=== PATIENT | male | born 1945 | race Caucasian/White ===

== ENCOUNTER 2019-11-27 04:16 | Observation (INO) | payer MEDICARE, BC ==
[~2019-11-27] VITALS: Ht 175.3 cm; Wt 80.3 kg
[2019-11-27] MEDS ORDERED: ASPIRIN325 MG PO (04:32)
[2019-11-27] MEDS ORDERED: NORCO 5-325 TA1 EACH PO (04:34)
[2019-11-27] MEDS ORDERED: ATORVASTATIN CA80 MG PO (05:51)
[2019-11-27] MEDS ORDERED: NORCO 10-325 T1 EACH PO (05:51)
[2019-11-27] MEDS ORDERED: CYCLOBENZAPRINE10 MG PO (05:52)
[2019-11-27] MEDS ORDERED: ECHINACEA350 MG PO (05:54)
[2019-11-27] MEDS ORDERED: MIRAPEX0.125 MG PO (05:54)
[2019-11-27] MEDS ORDERED: GABAPENTIN300 MG PO (05:54)
[2019-11-27] MEDS ORDERED: MEN'S MULTIVIT1 EACH PO (05:55)
[2019-11-27] MEDS ORDERED: UNISOM50 MG PO (05:55)
[2019-11-27] MEDS ORDERED: MUCINEX DM ER1 EAC1 PO (05:56)
[2019-11-27] MEDS ORDERED: ALKA-SELTZER P1 EAC3 PO (05:57)
--- OUTSIDE RECORDS SUMMARY | 2019-11-27 06:28 | XMS ---
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 Cindy VISIT COUNT (12 [address] [facility] [place] [facility] TOTAL 3 NOTE: Visits indicate total known visits. ED/UCC VISIT TRACKING (12 MO.) 11/27/2019 04:18 [facility] [place] TYPE: Emergency COMPLAINT: - DIFFICULTY STANDING/SLURRING WORDS 08/21/2019 11:47 [facility] [place]: Emergency DIAGNOSES: - Other iron deficiency anemias - EMS/Syncope - Weakness - Generalized - Hypokalemia - Weakness 06/17/2019 18:35 [facility] [place] DIAGNOSES: - BACK PAIN INPATIENT VISIT TRACKING (12 MO.) 08/21/2019 11:47 [facility] [place] TYPE: Internal Medicine DIAGNOSES: - Diaphragmatic hernia without obstruction or gangrene - Malignant neoplasm of esophagus, unspecified - Hypokalemia - Other iron deficiency anemias - Perforation of esophagus - Enterocolitis d/t Clostridium difficile, not spcf as recur Enterocol - Weakness 06/13/2019 06:02 [facility] [place] TYPE: Surgery DIAGNOSES: - Gastro-esophageal reflux disease with esophagitis [email or web address]
--- NOTE | 2019-11-27 11:05 | NUR ---
Spoke with Rajiv and his family. 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 Recently moved to [place] from [place]. Will establish care with Karolina Lopez on 12/01/19 and will use [facility] for a pharmacy. Son and daughter are both present with their families. Pt plans on returning home with his daughter when discharged. Denies further needs.
--- NOTE | 2019-11-27 11:08 | NUR ---
PT REPORTS PAIN 7-8/10 AT THIS TIME CHONIC BACK AND LEFT LEG PAIN. PT ALERT AND ORIENTED.
--- NOTE | 2019-11-27 11:50 | NUR ---
PT RESTING IN SEMIFOWLERS POSITION IN BED. PT ALERT AND ORIENTED. ASSESSMENT COMPLETED. PT DENIES ANY NEW SYMPTOMS OR CONCERNS. CALL LIGHT AND H2O IN REACH.
--- NOTE | 2019-11-27 15:22 | NUR ---
PT RESTING IN SEMIFOWLERS POSITION IN BED. ALERT AND ORIENTED AND READING DINNER MENUE. ASSESSMENT COMPLETED. CALL LIGHT AND H2O IN REACH. PT DENIES ANY NEW SYMPTOMS, NEEDS OR CONCERNS.
--- NOTE | 2019-11-27 16:08 | NUR ---
PT REPORTS 6/10 PAIN TO LOWER BACK AND RADIATING DOWN LLE. PT REQUESTED AND RECEIVED PRN PO FLEXARIL -SEE EMAR. CALL LIGHT AND H2O IN REACH. NO FURTHER NEEDS OR CONCERNS VOICED.
--- NOTE | 2019-11-27 17:59 | NUR ---
PT RESTING SUPINE IN BED ALERT AND ORIENTED WATCHING TV. ASSESSMENT COMPELTED AND PT DENIES NEW SYMPTOMS OR CONCERNS OTHER THAN 6/10 CHRONIC BACK PAIN/TINGLING. PER PT REQEUST PRN PO ANALGESIC ADMINISTERED. CALL LIGHT AND H2O IN REACH. NO OTHER NEEDS OR CONCERNS VOICED.
--- NOTE | 2019-11-27 19:20 | NUR ---
SHIFT REPORT RECIEVED FROM MADHAV ROSARIO. PT LAYING IN BED, WATCHING TV. NO NEEDS AT THIS TIME. CALL LIGHT IN REACH. TELE 8, SR@92.
--- NOTE | 2019-11-27 21:07 | NUR ---
ASSESSMENT AND NUERO CHECK COMPLETE. NO CHANGES FROM BASELINE NOTED. SCHEDULED MEDS PROVIDED.IV CDI, WNL, FLUSHED WELL. 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 WILL NOTIFY MD. NO OTHER NEEDS, CALL LIGHT IN REACH. PT DENIES PAIN AT THIS TIME.
--- NOTE | 2019-11-27 21:15 | NUR ---
ASSESSMENT AND NUERO CHECK COMPLETE. NO CHANGES FROM BASELINE NOTED. SCHEDULED MEDS PROVIDED.IV CDI, WNL, FLUSHED WELL. PRN PAIN MED FOR MUSCLE SPASM. PT DENIES PAIN AT THIS TIME. NO OTHER NEEDS, CALL LIGHT IN REACH.
--- NOTE | 2019-11-27 23:52 | NUR ---
PT COMPLEAINS OF LLE AND LOWER BACK PAIN. PRN PAIN MED PROVIDED. NO OTHER NEEDS AT THIS TIME. CALL LIGHT IN REACH.
--- NOTE | 2019-11-28 01:45 | NUR ---
PT RESTING IN BED, EYES CLOSED. RR 16, EVEN, UNLABORED. CALL LIGHT IN REACH.
--- NOTE | 2019-11-28 02:10 | NUR ---
ASSESSMENT COMPLETED. PT DENIES PAIN. NO CHANGES IN NEURO. GCS 15, A&O X4. NO OTHER NEEDS. CALL LIGHT IN REACH.
--- NOTE | 2019-11-28 04:05 | NUR ---
PT RESTING IN BED, EYES CLOSED. RR 14, EVEN, UNLABORED. TELE #8 SR @72. CALL LIGHT IN REACH.
--- NOTE | 2019-11-28 05:28 | NUR ---
PT SLEPT WELL LAST NIGHT. GCS 15, A&O X4. NO CHANGES TO SPEECH OR MOTOR SKILLS. PAIN MANAGED WITH SCHEDULED AND PRN PAIN MEDS. TELE #8 SR TRENDING IN 70s-80s.IV CDI, WNL, FLUSHED WELL.
--- NOTE | 2019-11-28 06:54 | NUR ---
PT STATES LLE AND LOWER BACK PAIN 03/25. PRN PAIN MED PROVIDED. PT UP TO BR AND BACK TO BED. NO OTHER NEEDS, CALL LIGHT IN REACH.
--- NOTE | 2019-11-28 07:20 | NUR ---
PT RESTING IN BED WATCHING TV. PT DENIES NEW SYMPTOMS OR CONCERNS AND STATES CHRONIC BACK AND LEG PAIN IS TOLERABLE. CALL LIGHT AND H2O IN REACH. BEDSIDE REPORT RECEIVED FROM MARLENE ESCAMILLA.
--- NOTE | 2019-11-28 08:31 | NUR ---
PT RESTING IN SEMIFOWLERS POSITION IN BED WATCHING TV. PT IS ALERT AND ORIENTED. TOLERATED 100% OF BREAKFAST. PT ASSESSMENT COMPLETED AND PT DENIES NEEDS OR CONCERNS. PT DENIES ANY NEW SYMPTOMS, GCS 15 AND PT STATES PAIN IS TOLERABLE TO LOWER BACK AND LE. CALL LIGHT AND H2O IN REACH.
[2019-11-28] MEDS ORDERED: ASPIRIN EC81 MG PO (10:38)
[2019-11-28] MEDS ORDERED: ATORVASTATIN CA80 MG PO (10:38)
[2019-11-28] MEDS ORDERED: METFORMIN HCL500 MG PO (10:39)
--- NOTE | 2019-11-28 10:46 | NUR ---
PATIENT DID HIS OWN AM CARE. I ASKED THE PATIENT IF HE WANTED A SHOWER AROUND NINE THIS MORNING AND HE SAID SURE. WHEN I CAME BACK IN TO ASK HIM IF HE WAS READY FOR HIS SHOWER HE SAID NO BECAUSE HE IS GOING HOME. AND HE WILL TAKE ONE AT HOME.
--- NOTE | 2019-11-28 11:00 | NUR ---
MED REC COMPLETE
--- NOTE | 2019-11-28 11:10 | NUR ---
PT UP AMBULATING IN ROOM. PT DENIES ANY NEW SYMPTOMS AND STATES CHRONIC PAIN IS TOLERABLE. PT DNEIES NEEDS AND VOICED READINESS TO BE DISCHARGED.
--- NOTE | 2019-11-29 17:07 | EKG ---
[facility] [address] [facility] [place], [place] [address] Signed Sinus rhythm with 1st degree AV block Otherwise normal ECG No previous ECGs available Confirmed by GARY CADENA MD ([id number]) on 11/29/2019 5:07:43 PM Electronically Signed By: GARY CADENA MD 11/29/19 1707 PATIENT NAME: ABDOULAYE CASTANO URIEL Electrocardiogram DATE OF : 47 PHYSICIAN: GARY CADENA MD REPORT #: [id number] REPORT IS CONFIDENTIAL AND NOT TO BE RELEASED WITHOUT AUTHORIZATION
== END 2019-11-28 11:35 | disposition home or self-care (01) ==
LOC: ED 04:16 → MS 04:19
PROVIDERS: ADMIT Internal Medicine
DX: G45.9 Transient cerebral ischemic attack, unspecified (principal); E78.5 Hyperlipidemia, unspecified; G25.81 Restless legs syndrome; M54.5 Low back pain; G89.29 Other chronic pain; L40.50 Arthropathic psoriasis, unspecified; E11.42 Type 2 diabetes mellitus with diabetic polyneuropathy; Z79.891 Long term (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 of opiate analgesic; Z79.899 Other long term (current) drug therapy; Z87.19 Personal history of other diseases of the digestive system; Z98.890 Other specified postprocedural states; Z79.82 Long term (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; Z79.84 Long term (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 of oral hypoglycemic drugs; Z87.891 Personal history of nicotine dependence
CPT/HCPCS: 70450; 71045; 80053; 80061; 80176; 81001; 83036; 84484; 85025; 85610; 85730; 93005; 93010; 93306; 93880; 96372; 99285-25; G0378; G0480; J1650

== ENCOUNTER 2021-02-12 06:30 | Day surgery (SDC) | payer MEDICARE, BC ==
[~2021-02-12] VITALS: Ht 175.3 cm; Wt 78.0 kg
[~2021-02-12 06:30] MED LIST: ALKA-SELTZER P1 EAC3 PO; ASPIRIN EC81 MG PO; ASPIRIN325 MG PO; ATORVASTATIN CA80 MG PO; CYCLOBENZAPRINE10 MG PO; ECHINACEA350 MG PO; GABAPENTIN300 MG PO; MEN'S MULTIVIT1 EACH PO; METFORMIN HCL500 MG PO; MIRAPEX0.125 MG PO; MUCINEX DM ER1 EAC1 PO; NORCO 10-325 T1 EACH PO; NORCO 5-325 TA1 EACH PO; UNISOM50 MG PO
--- NOTE | 2021-02-12 08:10 | NUR ---
02/12/21 0810 Codie Bustos 0759 PT ARRIVED TO PACU ON 4L VIA NC. VSS. PT AWAKE AND TALKING TO RN.
--- NOTE | 2021-02-12 11:45 | OR ---
[facility] [address] [place], [place] [address] Signed DATE OF OPERATION: 02/12/2021 SURGEON: Kisha Cooper MD PREOPERATIVE DIAGNOSES: 1. Proximal esophageal dysphagia. 2. Paraesophageal hiatal hernia repair. 3. Anemia (hemoglobin 11.8, mean cell volume 93.8). POSTOPERATIVE DIAGNOSES: 1. Small recurrent paraesophageal hiatal hernia. 2. Mild diffuse gastritis. 3. Hypertrophied adenoids. 4. Tenacious phlegm. PROCEDURE: EGD with CLOtest and biopsies of the antrum and GE junction. ESTIMATED BLOOD LOSS: None. INDICATIONS: Abdoulaye is a 75-year-old gentleman, asked to see me for upper endoscopy. He had a barium swallow in December of 2019. It was unremarkable. He had tiny amount of liquid penetration near the vocal cords; however, that is quite common. He also had repair of a large paraesophageal hernia at age 70 while living in [place], [place]. He said that was quite an ordeal. He is now complaining of the back of his oropharynx mainly with thin liquids. Consequently, he was asked to see me for upper endoscopy. In the office, I gave him a pamphlet on upper endoscopy. He understands the nature of the test. He understands there is risk including, but not limited to gas bloating, crampy abdominal pain, bleeding, perforation requiring surgery, and missed diagnosis. He also understands the need for IV sedation. Given his advanced age and medical issues, we asked an anesthesia provider to help us with increased monitoring and sedation with propofol. That worked out quite nicely for Abdoulaye. He had expressed understanding and wished to proceed. PROCEDURE NOTE: Abdoulaye was taken into our endoscopy suite and placed in the supine semi-recumbent position. A bite block was utilized for the case. He was given monitored anesthesia care per nurse card hand. The adult gastroscope was introduced and advanced under direct Electronically Signed By: KISHA COOPER MD 02/12/21 1145 PATIENT NAME: ABDOULAYE CASTANO OPERATIVE REPORT DATE OF : 47 REPORT #: [id number] PHYSICIAN: KISHA COOPER MD PCP: ARIEL RODRIGUES PAC REPORT IS CONFIDENTIAL AND NOT TO BE RELEASED WITHOUT AUTHORIZATION [facility] [address] [place], [place] [address] Signed visualization of camera. We actually had some trouble going over the tongue and into the posterior oropharynx. He has very thick dry tenacious phlegm. The epiglottis was adherent and down and it took a while to break that loose and get it to go up into his usual position. We found very hypertrophied adenoid tissue just above that. It seems like the arytenoids were just a little swollen as well. The vocal cord seemed to be okay. We were then able to pass our scope down the proximal esophagus and all the way out into the third portion of the duodenum. The duodenum and pyloric channel were unremarkable. He had a little retained food in his distal stomach. He had mild inflammatory changes throughout the stomach. However, that is common when there was retained food. We went ahead and took biopsies from the antrum for CLOtest as well as pathologic review. We saw no ulcerations. Upon retroflexion of scope, we can see he has had his paraesophageal hernia repaired. We watched that very carefully through multiple respiratory cycles. He has just a small recurrence on the one side. It is quite clinically insignificant. The scope was withdrawn up through the area of the GE junction, which was compliant without stricture. He does have mild to moderate disruption to the Z-line. No obvious Marte's mucosa. We went ahead and took a single biopsy along the edge of the Z-line. There were no strictures or gastric or esophageal varices. His distal middle and upper esophagus were unremarkable. Specifically, the proximal esophagus. Again in the posterior oropharynx, we found similar findings and took multiple pictures for photodocumentation. After this, the gastroscope was removed. Abdoulaye tolerated the procedure quite well. RECOMMENDATIONS: I will see Adboulaye back in my office in 7 to 14 days to review his results. He needs to see one of the head and neck surgeons to evaluate the posterior oropharynx. Kisha Cooper MD ALB/MODL /[id number] cc: MD Ariel Garcia Electronically Signed By: KISHA COOPER MD 02/12/21 1145 PATIENT NAME: ABDOULAYE CASTANO OPERATIVE REPORT DATE OF : 47 REPORT #: [id number] PHYSICIAN: KISHA COOPER MD PCP: [facility] REPORT IS CONFIDENTIAL AND NOT TO BE RELEASED WITHOUT AUTHORIZATION [address] [address] Signed Copies: KISHA COOPER MD ~ Electronically Signed By: KISHA COOPER MD 02/12/21 1145 PATIENT NAME: ABDOULAYE CASTANO OPERATIVE REPORT DATE OF : 47 REPORT #: [id number] PHYSICIAN: KISHA COOPER MD PCP: ARIEL RODRIGUES PAC REPORT IS CONFIDENTIAL AND NOT TO BE RELEASED WITHOUT AUTHORIZATION
== END 2021-02-12 08:30 | disposition home or self-care (01) ==
LOC: OPS 06:30 → DS 06:30 → OPS 06:45 → DS 06:45 → OPS 08:30
PROVIDERS: ATTEND Colon & Rectal Surgery
PROC: 0DB68ZZ Excision of Stomach, Via Natural or Artificial Opening Endoscopic (ICD-10-PCS; principal; 2021-02-12 06:45)
DX: R13.19 Other dysphagia (principal); K44.9 Diaphragmatic hernia without obstruction or gangrene; D64.9 Anemia, unspecified; K29.50 Unspecified chronic gastritis without bleeding; J35.2 Hypertrophy of adenoids; R09.89 Other specified symptoms and signs involving the circulatory and respiratory systems; I10 Essential (primary) hypertension; E78.00 Pure hypercholesterolemia, unspecified; I65.23 Occlusion and stenosis of bilateral carotid arteries; E11.42 Type 2 diabetes mellitus with diabetic polyneuropathy; L40.59 Other psoriatic arthropathy; G25.81 Restless legs syndrome; Z98.890 Other specified postprocedural states; Z79.82 Long term (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; Z79.84 Long term (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 of oral hypoglycemic drugs; Z87.891 Personal history of nicotine dependence; Z85.46 Personal history of malignant neoplasm of prostate; Z86.73 Personal history of transient ischemic attack (TIA), and cerebral infarction without residual deficits
CPT/HCPCS: 86677; J0690; J2001; J2704; J3010; J7121

== ENCOUNTER 2021-03-09 09:00 | Day surgery (SDC) | payer MEDICARE, BC ==
[~2021-03-09] VITALS: Ht 175.3 cm; Wt 77.6 kg
--- NOTE | 2021-03-09 09:27 | NUR ---
RESP THERAPY IN TO PT ROOM FOR EKG
--- NOTE | 2021-03-09 10:38 | NUR ---
03/09/21 Jillian Mancilla 1032: PT ARRIVES TO PACU FOR REVOVERY. NON AROUSABLE TO TACTILE STIMULI. OPA IN PLACE 1034: REMAINS NON AROUSABLE. BP LOW, POZAR, FIRE PATROLLER AT THE BEDSIDE. EPHEDRINE ADMINISTERED BY FIRE PATROLLER, SEE EMAR. RESP EVEN AND UNLABORED, O2 SAT STABLE >98% ON 10L VIA O2 1036: FIRE PATROLLER REMAINS AT THE BEDSIDE, FLUID BOLUS INFUSING
--- NOTE | 2021-03-09 12:12 | NUR ---
PT IS BACK TO FROM PACU. HE IS TOLERATING WATER AND APPLE SAUCE AT THIS TIME. CALL LIGHT WITHIN REACH. NO C/O'S PAIN. NO ADDITIONAL NEEDS AT THIS TIME.
--- NOTE | 2021-03-09 13:08 | NUR ---
PT BP INCREASED FROM PREVIOUS PRESSURES, HOB ELEVATED TO APPROX 70 DEGREES. PT DENIES ANY LIGHT HEADEDNESS OR NAUSEA. PT STATES "BACK AND LEGS ARE 3/10 FROM PREVIOUS SURGERY" WHEN ASKED ABOUT PAIN AND RATES SURGICAL SITE 1/10. PT CLEARS THROAT PERIODICALLY, TOLERATES PO WITH NO NAUSEA. PT ENCOURAGED TO USE CALL LIGHT WITH URGE TO VOID. ICED WATER REFILLED AND PUDDING PROVIDED.
--- NOTE | 2021-03-09 13:58 | NUR ---
PT TOLERATES PUDDING AND WATER WITH NO NAUSEA. PT STATES, "GETTING THERE" WHEN ASKED IF URGE TO VOID. PT EDUCATED ABOUT GENERAL ANESTHESIA AND RETENTION AND AGREES HE WOULD LIKE TO PEE BEFORE DC.
--- NOTE | 2021-03-09 14:04 | NUR ---
PT UP TO BATHROOM WITH RN ASSIST. STEADY GAIT, DENIES ANY DIZZINESS OR NAUSEA WITH AMBULATION. PT ABLE TO VOID APPROX 200 MLS YELLOW URINE WITH NO PROBLEMS. PT BACK TO DS RM 6 WITH RN ASSIST TO GET DRESSED.
--- NOTE | 2021-03-10 13:45 | PATH ---
[facility] [address] [place], [place] [address] Signed SPECIMEN(S): A LEFT PHARYNGEAL LESION SPECIMEN SOURCE: A. LEFT PHARYNGEAL LESION CLINICAL HISTORY: Direct laryngoscopy biopsy base tongue lesion. Pre/Postop Diagnosis: Tongue lesion. FINAL PATHOLOGIC DIAGNOSIS: Left pharyngeal lesion, biopsy: - Fibroepithelial polyp with chronic inflammation. - Negative for dysplasia or malignancy. NAL:cml:C2NR MICROSCOPIC EXAMINATION: Histologic sections of all submitted blocks are examined by light microscopy. These findings, together with the gross examination, support the pathologic diagnosis. GROSS DESCRIPTION: The specimen, labeled ", A.," and designated on the requisition "left pharyngeal lesion," is received in formalin and consists of three calero soft tissue fragments ranging 0.3-0.5 cm in greatest dimension. Specimen is entirely submitted in cassette (A1). AT (under the direct supervision of a pathologist) The Gross Description was prepared using a voice recognition system. The report was reviewed for accuracy; however, sound-alike word errors, addition and/or deletions may occur. If there is any question about this report, please contact Client Services. PERFORMING LABORATORY: The technical component was performed by [facility], [address] [place] [id number] (Blower Room Attendant: Elo Kerr MD; CLIA# [id number]). Professional interpretation was performed by [facility], [address] [address] (CLIA# [id number]). Diagnostician: Deisi Merrill MD Pathologist Electronically Signed 03/10/2021 PATIENT NAME: ABDOULAYE CASTANO PATHOLOGY DATE OF : 47 REPORT #: [id number] PHYSICIAN: RAMESH PATHOLOGY PCP: NO PRIMARY CARE PHYSICIAN REPORT IS CONFIDENTIAL AND NOT TO BE RELEASED WITHOUT AUTHORIZATION [address] [address] Signed Copies: ~ PATIENT NAME: ABDOULAYE CASTANO PATHOLOGY DATE OF : 47 REPORT #: [id number] PHYSICIAN: RAMESH PATHOLOGY PCP: NO PRIMARY CARE PHYSICIAN REPORT IS CONFIDENTIAL AND NOT TO BE RELEASED WITHOUT AUTHORIZATION
--- NOTE | 2021-03-11 12:31 | EKG ---
[facility] [address] [facility] [place], [place] [address] Signed Sinus rhythm with 1st degree AV block Otherwise normal ECG No previous ECGs available Confirmed by BRITTANY HUBBARD DO ([id number]) on 03/11/2021 12:31:48 PM Electronically Signed By: BRITTANY HUBBARD DO 03/11/21 1231 PATIENT NAME: OMAIRAABDOULAYE Electrocardiogram DATE OF : 47 PHYSICIAN: BRITTANY HUBBARD DO REPORT #: [id number] REPORT IS CONFIDENTIAL AND NOT TO BE RELEASED WITHOUT AUTHORIZATION
--- NOTE | 2021-03-16 10:09 | OR ---
[facility] [address] [place], [place] [address] Signed DATE OF OPERATION: 03/09/2021 SURGEON: Ellen Albarran MD PREOPERATIVE DIAGNOSIS: Pharyngeal lesion. POSTOPERATIVE DIAGNOSIS: Pharyngeal lesion. PROCEDURE: Direct laryngoscopy, biopsy of pharyngeal lesion. 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 PREOPERATIVE HISTORY: Mr. Batista is a 75-year-old man, who has had some coughing, dysphagia. Recent upper GI endoscopy by Dr. Mayorga showed some prominent lingual tonsillar tissue. Exam in the office fiberoptically showed prominent lingual tonsil mucosal tissue, and he was taken to the operating for the above-mentioned procedures. PROCEDURE AND FINDINGS: After informed consent, the patient was taken to the operating room, placed in supine position, where general orotracheal anesthesia was induced. The patient and procedure were verified. The patient was repositioned. Digital palpation of the base of tongue showed no abnormalities. The patient was repositioned. Anterior commissure laryngoscope used to visualize the hypopharynx and larynx. Fairly prominent lingual tonsils. A bit of asymmetry nodularity on the left side near the pharyngeal wall. The remainder of the laryngoscopy was within normal limits. The vocal cords clear. Piriform was clear. A cup forceps was used to biopsy the left pharyngeal lesion. Minimal bleeding. This specimen sent to pathology in formalin. No other abnormalities were identified. The pharynx was suctioned clear of blood and secretions. The patient was then awakened, extubated, and transported to the recovery room in good condition. COMPLICATIONS: No complications. BLOOD LOSS: Minimal. Electronically Signed By: ELLEN ALBARRAN MD 03/16/21 1009 PATIENT NAME: ABDOULAYE BATISTA OPERATIVE REPORT DATE OF : 47 REPORT #: [id number] PHYSICIAN: ELLEN ALBARRAN MD PCP: NO PRIMARY CARE PHYSICIAN REPORT IS CONFIDENTIAL AND NOT TO BE RELEASED WITHOUT AUTHORIZATION [address] [address] Signed SPECIMEN: To pathology. DRAINS: No drains. Ellen Albarran MD GC/MODL /[id number] Copies: ~ Electronically Signed By: ELLEN ALBARRAN MD 03/16/21 1009 PATIENT NAME: ABDOULAYE BATISTA OPERATIVE REPORT DATE OF : 47 REPORT #: [id number] PHYSICIAN: ELLEN ALBARRAN MD PCP: NO PRIMARY CARE PHYSICIAN REPORT IS CONFIDENTIAL AND NOT TO BE RELEASED WITHOUT AUTHORIZATION
== END 2021-03-09 14:15 | disposition home or self-care (01) ==
LOC: OPS 09:00 → DS 09:03 → OPS 10:00
PROVIDERS: ATTEND Otolaryngology
PROC: 0CBM8ZX Excision of Pharynx, Via Natural or Artificial Opening Endoscopic, Diagnostic (ICD-10-PCS; principal; 2021-03-09 10:00)
DX: J39.2 Other diseases of pharynx (principal)
CPT/HCPCS: 00320; 88305; 93005; 93010; J0330; J1100; J1885; J2250; J2370; J2405; J2704; J2765; J3010; J7121

== ENCOUNTER 2022-02-09 10:20 | Day surgery (SDC) | payer MEDICARE, BC ==
[~2022-02-09] VITALS: Ht 175.3 cm; Wt 75.0 kg
[~2022-02-09 10:20] MED LIST changes: +METHOTREXATE2.5 MG PO; +MULTI-DAY PLUS1 EAC1 PO; +VERAPAMIL ER240 MG PO
--- NOTE | 2022-02-09 12:20 | NUR ---
02/09/22 1220 Meeta Woods 1211-PATIENT ARRIVED TO PACU ON 6L MASK NONAROUSABLE LAYING PRONE. BANDAID CDI TO LEFT LOWER BACK. IVF INFUSING. SR. PATIENT REPOSITIONED TO BACK WITH RNS AND APPRENTICE FUNERAL DIRECTOR ASSISTANCE. PER APPRENTICE FUNERAL DIRECTOR REMOVED TELEMETRY MONITORING. 1219-PATIENT SLEEPING 2L NC RR EVEN 1O0% NONAROUSABLE. IVF INFUSING.
--- NOTE | 2022-02-15 17:53 | PATH ---
[facility] [address] [facility] [place], [place] [address] Signed THIS IS AN ADDENDUM REPORT SPECIMEN(S): A BONE MARROW - CORE SPECIMEN(S): B BONE MARROW - ASPIRATION SPECIMEN(S): C FLOW CYTOMETRY, EDTA ASP CLINICAL HISTORY: Bone marrow biopsy. 76-year-old male with hypoplastic anemia. Diagnosis: Myelodysplasia. D46.9 (myelodysplastic syndrome, unspecified) DIAGNOSIS SUMMARY: A. Peripheral blood - Normocytic anemia. - No circulating blasts are identified. B. Bone marrow biopsy and aspiration: - Normocellular marrow, 20%, with 1% myeloblasts. - Trilineage hematopoiesis with mild erythroid hyperplasia. - Decreased marrow iron stores by Prussian Blue staining. No ring sideroblasts are identified. - No malignancy identified. - See Diagnostic Comment. DIAGNOSTIC COMMENT: Erythroid hyperplasia is present in the setting of a normocytic anemia and a normocellular bone marrow. No significant morphologic dyspoiesis is noted, but a FISH panel for MDS is pending at the time of this report, and the result will be reported in an addendum. Marrow iron stores are decreased by Prussian Blue staining, and clinical correlation with serum iron studies is suggested. Overall, an anemia of chronic disease or a mixed etiology anemia is favored. No malignancy is detected. JLP:C2NR HISTORICAL SUMMARY: 76-year-old male with an unexplained anemia. A clinical concern for myelodysplasia is noted. This bone marrow is to evaluate the anemia. PERIPHERAL BLOOD: HEMOGRAM (02/09/2022): WBC 7.8 K/ul, RBC 3.97 M/ul, HGB 10.2 g/dl, HCT 33.3%, MCV 83.8 fl, MCH 25.8 pg, MCHC 30.7 g/dl, RDW 22.8%, PLT 437 K/ul. AUTOMATED DIFFERENTIAL COUNT: Neutrophils 65.1%, lymphocytes 25.4%, monocytes PATIENT NAME: ABDOULAYE CASTANO PATHOLOGY DATE OF : 47 REPORT #: [id number] PHYSICIAN: RAMESH PATHOLOGY PCP: ARIEL RODRIGUES PAC REPORT IS CONFIDENTIAL AND NOT TO BE RELEASED WITHOUT AUTHORIZATION [facility] [address] [place], [place] [address] Signed 4.5%, eosinophils 3.8%, basophils 1.2%. The red blood cells are normocytic and normochromic with minimal anisopoikilocytosis. The neutrophils are unremarkable. Lymphocytes are composed of small mature appearing forms. Large granular lymphocytes are present but are not increased. Platelets appear normal in number and morphology with no platelet clumping or RBC microangiopathic effect identified. No blasts are identified. BONE MARROW: ASPIRATE SMEARS/TOUCH IMPRINT: The aspirate smears are adequate for evaluation. Erythroid precursors are mildly increased but show adequate maturation with essentially normal morphology. The myeloid precursors show full maturation with unremarkable morphology. There is no increase in blasts. Megakaryocytes are identified with a normal morphology. BONE MARROW DIFFERENTIAL COUNT (300 cells): Blasts 1%, promyelocytes 1%, myelocytes 3%, metamyelocytes/bands/segs 34%, erythroid precursors 39%, lymphocytes 15%, monocytes 4%, eosinophils 3%, plasma cells less than 1%. M:E ratio: 1.1:1 BONE MARROW CORE BIOPSY/ASPIRATE CLOT/CELL BLOCK: The aspirate clot section and the core biopsy are adequate for evaluation. The core biopsy demonstrates unremarkable trabecular bone. The cellularity is normal for age, estimated at 20%. The erythroid precursors are mildly increased with essentially unremarkable maturation. The myeloid precursors are unremarkable with no significant dyspoiesis. Blasts are not increased. Megakaryocytes appear normal in number and in morphology. No granulomas, atypical lymphoid aggregates or foreign malignant cells are detected. SPECIAL STAINS (with adequate controls): - iron (aspirate smear): Decreased marrow iron stores by Prussian Blue stain. No ring sideroblasts are identified. - iron (cell block): Decreased marrow iron stores by Prussian Blue stain. No ring sideroblasts are identified. IMMUNOHISTOCHEMISTRY STAINS (performed on block A1 with adequate controls). - CD71: Increased, 50% - CD34: Less than 1% - CD117: Less than 1% FLOW CYTOMETRY: Bone marrow, flow cytometry: - No diagnostic abnormal populations are identified by flow cytometry. PATIENT NAME: ABDOULAYE CASTANO PATHOLOGY DATE OF : 47 REPORT #: [id number] PHYSICIAN: RAMESH PATHOLOGY PCP: ARIEL RODRIGUES PAC REPORT IS CONFIDENTIAL AND NOT TO BE RELEASED WITHOUT AUTHORIZATION [facility] [address] [place], [place] [address] Signed - See Comment. COMMENT: The majority of the gated lymphocytes are T-cells with a normal marking pattern. The B-cells are unremarkable with no light chain restriction or aberrant marking. 2% myeloblasts are detected. No aberrant marking is detected in the myeloid or monocyte gate areas. Plasma cells are not increased. Correlation with histologic findings is needed. FLOW CYTOMETRY ANALYSIS: FLOW DIFFERENTIAL (% Total CD45 vs. SSC gating): Myeloid 77%; Lymphoid 12%; Monocyte 2%; Dim CD45/Blast: 2.0%. Cell Count: 3.8 x 10*3/uL. POPULATION ANALYSIS: BLASTS: Analysis of the dim CD45 gate demonstrates 2.0% myeloblasts by CD34/CD117. 0.6% hematogones are detected. LYMPHOID CELLS: The lymphocyte gate comprises 12% of total events and includes 88% T-cells with a CD4:CD8 ratio of 0.8:1 and normal castelan T-cell antigen expression. 2% of lymphocytes are polyclonal B-cells with a kappa:lambda ratio of 2.1:1. The remainders are NK-cells. MYELOID CELLS: The myeloid population comprises 77% of the total events. No aberrant immunophenotypic expression is detected. MONOCYTES: The monocyte population comprises 2% of the total events. Monocytes are not increased. No aberrant immunophenotypic expression is detected. PLASMA CELLS: 0.6% plasma cells are detected in the screening gate neg-dimCD45/CD38. Plasma cells are CD45 dim and positive for CD19. ANTIBODIES USED: KAPPA, LAMBDA, CD20, CD10, CD19, CD23, CD38, CD16, CD56, CD8, CD5, CD2, CD4, CD7, CD3, CD14, CD33, CD13, HLADR, CD34, CD117, CD15, CD45. TOTAL ANTIBODIES USED: 23. JNB FINAL DIAGNOSIS PERFORMED BY: Ramírez Larios MD, Feb 10 2022 2:44PM CYTOGENETICS: Insufficient specimen is submitted for chromosome analysis. FISH ANALYSIS: A FISH panel for MDS is pending, and the results will be reported in an addendum. GROSS DESCRIPTION: Two specimens are received in two containers, labeled "JR." A. The specimen, labeled "JR, bone marrow core biopsy," is received in PATIENT NAME: ABDOULAYE CASTANO PATHOLOGY DATE OF : 47 REPORT #: [id number] PHYSICIAN: RAMESH PATHOLOGY PCP: ARIEL RODRIGUES PAC REPORT IS CONFIDENTIAL AND NOT TO BE RELEASED WITHOUT AUTHORIZATION [facility] [address] [place], [place] [address] Signed formalin and consists of one pink-calero needle core bone tissue fragment that measures 2.0 cm in length and 0.2 cm in diameter. Specimen is left for decalcification in Immunocal prior to processing for approximately one hour. B. The specimen, labeled "JR, bone marrow aspiration," is received in formalin and consists of irregular shaped, coagulated blood tissue fragment that measures 1.7 x 0.8 x 0.2 cm. Specimen is entirely submitted in cassette (B1). JS (under the direct supervision of a pathologist) The Gross Description was prepared using a voice recognition system. The report was reviewed for accuracy; however, sound-alike word errors, addition and/or deletions may occur. If there is any question about this report, please contact Client Services. ADDITIONAL NOTES: Immunohistochemical and/or in situ hybridization studies were performed on this case with the appropriate positive controls that react as expected. This test was developed and its performance characteristics determined by [facility]. It has not been cleared or approved by the U.S. Food and Drug Administration. The FDA has determined that such clearance or approval is not necessary. This test is used for clinical purposes. It should not be regarded as investigational or for research. [facility] is certified under the Clinical Laboratory Improvement Amendments of 1988 (CLIA) as qualified to perform high complexity clinical laboratory testing. This assay has not been validated for specimens that have been decalcified. In this case, certain antibodies were performed by both immunohistochemistry and flow cytometry analysis because flow cytometry analysis did not fully explain all the light microscopic findings. Immunohistochemistry aided in the analysis. Both methods are deemed medically necessary in this case. This test was developed and its performance characteristics determined by [facility]. It has not been cleared or approved by the US Food and Drug Administration. The FDA does not require this test to go through premarket FDA review. This test is used for clinical purposes. It should not be regarded as investigational or for research. This laboratory is certified under the Clinical Laboratory Improvement Amendments (CLIA) as qualified to perform high complexity clinical laboratory testing. PATIENT NAME: ABDOULAYE CASTANO PATHOLOGY DATE OF : 47 REPORT #: [id number] PHYSICIAN: RAMESH HENDERSON PCP: ARIEL RODRIGUES PAC REPORT IS CONFIDENTIAL AND NOT TO BE RELEASED WITHOUT AUTHORIZATION [address] [address] Signed PERFORMING LABORATORY: The technical component was performed by [facility], [address] [place] [address] (CLIA#: [id number]). Professional interpretation was performed by [facility] - [facility], [address] [place] [id number] (CLIA#: [id number]). A portion of the technical component was performed by [facility], [address] [place] [id number] (CLIA# [id number]). A portion of the technical component was performed by [facility], [facility] [place] [address] (CLIA#: [id number]). Professional interpretation was performed by [facility] - [facility], [address] [place] [id number] (CLIA#: [id number]). IMAGES: A: [id number] A: [id number] SPECIMEN SOURCE: D. FISH Analysis, MDS FISH, BM Heparin CLINICAL HISTORY: Bone marrow biopsy. 76-year-old male with hypoplastic anemia. Diagnosis: Myelodysplasia. D46.9 (myelodysplastic syndrome, unspecified) FISH (fluorescence in situ hybridization) RESULT: Not Detected INTERPRETATION: 5q deletion/monosomy 5: Not detected. 7q deletion/monosomy 7: Not detected. Trisomy 8: Not detected. 20q deletion: Not detected. KMT2A (MLL) rearrangement: Not detected. Fluorescence in situ hybridization (FISH) analysis was performed using a specific set of probes for myelodysplastic syndrome. Counts for all probe signals were within the normal reference range. This finding represents a NORMAL result. FISH should be interpreted within the context of a full cytogenetic analysis and hematologic evaluation. ISCN: Probe Set Detail: EGR1/C7N801: nuc juan carlos 5p15.31(B3C379t7), 5q31(EGR1x2)[200] O7B350/CEP7: nuc juan carlos 7q31(X7V691a4),7q11.2q11.21(CEP7x2)[200] CEP8: nuc juan carlos 8q11.1q11.21(CEP8x2)[300] M89I413: nuc juan carlos 20q12(H59Y374w0)[300] PATIENT NAME: ABDOULAYE CASTANO PATHOLOGY DATE OF : 47 REPORT #: [id number] PHYSICIAN: RAMESH PATHOLOGY PCP: ARIEL RODRIGUES PAC REPORT IS CONFIDENTIAL AND NOT TO BE RELEASED WITHOUT AUTHORIZATION [facility] [address] [place], [place] [address] Signed KMT2A (MLL): nuc juan carlos 11q23(5'KMT2A,3'KMT2A)x2(5'KMT2A con 3'ETG1Me0)[200] References: Chemo Gandhi (2013) Hematology Am Soc Hematol Educ Program 2013:504-10. PMID [id number] Angela Mandel and Jessica Nix (2011) Hematology 16(3):131-8. PMID: 44255523 FISH Analysis Summary: Nuclei Scored: 200-300 Scoring Method: Manual; CPT Code 19488 Number of Probe units: 4 Multiplex Cells analyzed: Interphase Probe sets: Chrom 8: SULLY 8, Chrom 20: [id number], Chrom 5: EGR1, Chrom 5: H6C591, Chrom 7: CEN7, Chrom 7: T8A5303, Chrom 11: KMT2A (MLL) 3', Chrom 11: KMT2A (MLL) 5 ADDITIONAL NOTES: This test was developed and its performance characteristics determined by [facility] It has not been cleared or approved by the US Food and Drug Administration. The [employer] DNA probe vendor for this study was [employer]. PERFORMING LABORATORY: The technical component and professional interpretation of the FISH testing were performed by [facility], [address] [place] [address] (IA#: [id number]). FINAL DIAGNOSIS PERFORMED BY: Ric Carrillo MD, Pathologist Feb 15 2022 4:31PM REASON FOR ADDENDUM: To add results of additional testing. Diagnostician: Ric Carrillo MD Pathologist Diagnostician: Ramírez Larios MD Pathologist Electronically Signed 02/15/2022 Copies: ~ PATIENT NAME: ABDOULAYE CASTANO PATHOLOGY DATE OF : 47 REPORT #: [id number] PHYSICIAN: RAMESH PATHOLOGY PCP: ARIEL RODRIGUES PAC REPORT IS CONFIDENTIAL AND NOT TO BE RELEASED WITHOUT AUTHORIZATION
== END 2022-02-09 12:45 | disposition home or self-care (01) ==
LOC: OPS 10:20 → DS 10:20 → OPS 12:00
PROVIDERS: ATTEND Specialist
PROC: 07DR3ZX Extraction of Iliac Bone Marrow, Percutaneous Approach, Diagnostic (ICD-10-PCS; principal; 2022-02-09 12:00)
DX: D46.9 Myelodysplastic syndrome, unspecified (principal); E78.5 Hyperlipidemia, unspecified; E11.9 Type 2 diabetes mellitus without complications; L40.50 Arthropathic psoriasis, unspecified
CPT/HCPCS: 00811; 36415; 85025; 85060; 88184; 88185; 88305; 88311; 88313; 88342; 88377; J2704

== ENCOUNTER 2022-09-12 05:47 | Inpatient (IN) | payer MEDICARE, BC ==
[~2022-09-12] VITALS: Ht 175.3 cm; Wt 66.2 kg
[~2022-09-12 05:47] MED LIST changes: +AZITHROMYCIN250 MG PO; +CALCIUM-FOLIC1 EACH PO; +CEFDINIR300 MG PO; +FEROSUL325 MG PO; +FOLIC ACID1 MG PO; +GABAPENTIN600 MG PO; +HYDROCODON-ACE1 EAC8 PO; +METOPROLOL TART25 MG PO; +OSTERA TABLET1 EACH PO; +POTASSIUM CHLO20 ME1 PO
--- OUTSIDE RECORDS SUMMARY | 2022-09-12 05:51 | XMS ---
PreManage Notification: ABDOULAYE CASTANO Security Setter Up Events No recent Security Events currently on file CRITERIA MET - [facility] PROVIDERS ARIEL RODRIGUES Physician Breaker Unit Assembler 11/28/2019-Current PHONE: Unknown TANO MEJIA Current PHONE: [phone] ARPITA VELOZ Internal Medicine Current PHONE: Unknown Robel has no Care Guidelines for this patient. E.D. VISIT COUNT (12 MO.) [address] [facility] TOTAL 2 NOTE: Visits indicate total known visits. ED/UCC VISIT TRACKING (12 MO.) 09/12/2022 05:48 [facility] [place] TYPE: Emergency COMPLAINT: - WEAKNESS 06/05/2022 09:15 [facility] [place] TYPE: Emergency COMPLAINT: - SHOB INPATIENT VISIT TRACKING (12 MO.) 06/05/2022 09:[address] [facility] [place] TYPE: Observation COMPLAINT: - PNEUMONIA DIAGNOSES: - Hyperlipidemia, unspecified - Dorsalgia, unspecified - Orthostatic hypotension - Other chronic pain - Atrioventricular block, first degree - Contact with and (suspected) exposure to COVID-19 - Type 2 diabetes mellitus with hyperglycemia - Personal history of nicotine dependence - Dehydration - Hypomagnesemia - Type 2 diabetes mellitus with diabetic polyneuropathy - Acute kidney failure, unspecified - Pneumonia, unspecified organism [email or web address]
--- NOTE | 2022-09-12 19:41 | EKG ---
[facility] [address] [place] [address] Signed Sinus tachycardia Inferior infarct , age undetermined Abnormal ECG No previous ECGs available Confirmed by STARR LOPEZ MD ([id number]) on 09/12/2022 7:40:55 PM Electronically Signed By: STARR LOPEZ MD 09/12/221940 PATIENT NAME: ABDOULAYE CASTANO URIEL Electrocardiogram DATE OF : 47 PHYSICIAN: STARR LOPEZ MD REPORT #: [id number] REPORT IS CONFIDENTIAL AND NOT TO BE RELEASED WITHOUT AUTHORIZATION
--- NOTE | 2022-09-14 15:46 | CONS ---
[facility] [address] [place], [place] [address] Signed DATE OF CONSULTATION: 09/12/2022 REQUESTING PHYSICIAN: Starr Kim MD PROBLEM: Significant anemia, recent hematemesis underlying co-existent influenza A (symptomatic). HISTORY OF PRESENT ILLNESS: This 77-year-old white man has a complex past medical history, which included laparoscopic repair of a paraesophageal hernia at [facility] with resultant leak requiring left-sided thoracotomy and other interventions including placement of feeding gastrostomy. This was in about 2018. He is a patient of Ariel BONILLA. The patient presented to the emergency room with complaint of sudden onset of shortness of breath and mid epigastric abdominal pain associated with nausea and vomiting of coffee-ground material approximately 9:00 p.m., the night of admission. The patient subsequently had some dark black stool per rectum. Notably, the patient was evaluated by Dr. Matthew, medical oncologist to assess for myelodysplastic syndrome in January. The patient underwent upper endoscopy and colonoscopy in [facility] in 2018, showing a large hiatal hernia, but without ulceration or other cause of his iron deficiency anemia. Cecal polyps were excised and he did have diverticulosis. As mentioned, the Alyse fundoplication he underwent in 2018 [facility] was complicated by an esophageal leak. He has had pneumonia with left empyema and required left thoracotomy and drainage. He underwent upper endoscopy by Dr. Mayorga in January of 2021-- more than a year ago-- showing diffuse gastritis. His admission through the emergency room was notable for significant anemia with hematocrit of 20.1. Platelet count was normal at 419 and white count 5.8. He was admitted for further evaluation and care. His dominant problem is persistent cough and upper respiratory symptoms; issues related to chronic anemia and the recent presumed coffee ground emesis prompts surgical consultation at this time. At present, the patient does not have abdominal pain, except when coughing. He is in the intensive care unit under close monitoring. He denies any further hematemesis since admission. PAST MEDICAL HISTORY: Notable for difficulty in hearing. He is a former smoker, having quit in 1989. He has no known drug allergies. He is also noted to have peripheral neuropathy with chronic back and leg pain as well as RLS. He has had three back operations, bilateral shoulder Electronically Signed By: SAVANA MOYER MD 09/14/22 1546 PATIENT NAME: ABDOULAYE CASTANO CONSULTATION DATE OF : 47 REPORT #: [id number] PHYSICIAN: SAVANA MOYER MD PCP: ARIEL RODRIGUES PAC REPORT IS CONFIDENTIAL AND NOT TO BE RELEASED WITHOUT AUTHORIZATION [facility] [address] [place] [address] Signed operations, left hip replacement, paraesophageal hernia repair with complications as described and a G-tube that was removed in 2019 (October). SOCIAL HISTORY: He lives alone. He lives in [address] His primary care provider is CHAD Juárez. REVIEW OF SYSTEMS: He denies any shortness of breath or chest pain at this time. Does have episodic cough and resultant upper abdominal pain with coughing. PHYSICAL EXAMINATION: GENERAL: Pleasant white man, who is hard of hearing. HEENT: Trachea is midline. He has no thyromegaly or cervical adenopathy. CHEST: Shows diminished breath sounds bilaterally. I do not detect wheeze at this time. He has episodic cough. ABDOMEN: Soft and flat. The laparoscopic trocar sites are well healed and a dimple in the left upper abdomen consistent with prior gastrostomy tube. EXTREMITIES: Show no clubbing, cyanosis, or edema. LABORATORY STUDIES: Showed initial white count 5.8, hematocrit 20.1, platelets 419,000, positive influenza A RNA serology. Urinalysis is pending. Coag studies show an INR of 1.08. Chem profile shows a creatinine of 1.18. Normal liver enzymes are noted. Albumin is low at 3.3, lipase 107. I reviewed the imaging studies, which show some scarring in the left pleural space, no doubt related to prior empyema. He appears to have some stomach above the diaphragm extending to the level of the bk, though less well-visualized on the AP view. The liver appears normal as does the spleen. Small-bowel and colon all appeared normal. The gallbladder appears normal as well. ASSESSMENT: The patient has significant anemia for which evaluation in the past for myelodysplasia has been undertaken by the oncologist showing no sign of abnormality. He has had upper endoscopy and colonoscopy recently in 2020; as regards upper endoscopy by Dr. Jerrod Mayorga showing gastritis and no ulceration or neoplasm. Given his current anatomy of the stomach in relation to the diaphragm, he may well have a gastric collar (Sid) ulcer, though that is uncertain. Since he has had anemia quite some time and only recently last night had hematemesis, one wonders if indeed he does have a peptic problem accounting for his anemia. He has had colonoscopy in the [place], [place] in 2019, showing some polyps, but has no stigmata of abdominal mass on exam. ASSESSMENT: Complicating the situation is his ongoing active influenza A for which he has persistent episodic cough. This exacerbates his upper abdominal pain. Electronically Signed By: SAVANA MOYER MD 09/14/22 1546 PATIENT NAME: ABDOULAYE CASTANO CONSULTATION DATE OF : 47 REPORT #: [id number] PHYSICIAN: SAVANA MOYER MD PCP: ARIEL RODRIGUES PAC REPORT IS CONFIDENTIAL AND NOT TO BE RELEASED WITHOUT AUTHORIZATION [address] [address] Signed Transfusion therapy is underway under the direction of Dr. Kim, which is appropriate. The patient is on PPI medication as well. The upper endoscopy can and should be obtained, but not likely at this moment; does not have active bleeding so far as can be told and the underlying upper respiratory infection can be problematic as regards upper endoscopy and exacerbation of an airway issue of tenuous. I will review with Dr. Kim the timeline for which an upper endoscopy might be beneficial. Primarily Dr Kim wanted surgical consultation completed before he develops a more emergent need for intervention. MD STEPHANE Corcoran/YESYL /[id number] cc: MD Ariel Warren PA Copies: STARR KIM MD ~ Electronically Signed By: SAVANA MOYER MD 09/14/22 1546 PATIENT NAME: ABDOULAYE CASTANO CONSULTATION DATE OF : 47 REPORT #: [id number] PHYSICIAN: SAVANA MOYER MD PCP: ARIEL RODRIGUES PAC REPORT IS CONFIDENTIAL AND NOT TO BE RELEASED WITHOUT AUTHORIZATION
[2022-09-15] MEDS ORDERED: OSELTAMIVIR PHO30 MG PO (11:14)
[2022-09-15] MEDS ORDERED: OMEPRAZOLE20 MG PO (11:15)
[2022-09-15] MEDS ORDERED: METHOTREXATE2.5 MG PO (11:16)
== END 2022-09-15 13:25 | disposition home or self-care (01) | DRG 812 ==
LOC: ED 05:47 → MS 10:25 → CCU 10:25 → MS 09-14 20:17
PROVIDERS: ADMIT Internal Medicine; ATTEND Internal Medicine
PROC: 30233N1 Transfusion of Nonautologous Red Blood Cells into Peripheral Vein, Percutaneous Approach (ICD-10-PCS; principal; 2022-09-12)
DX: D64.9 Anemia, unspecified (principal); J10.1 Influenza due to other identified influenza virus with other respiratory manifestations; L40.50 Arthropathic psoriasis, unspecified; G25.81 Restless legs syndrome; E78.5 Hyperlipidemia, unspecified; I10 Essential (primary) hypertension; G89.4 Chronic pain syndrome; Z87.891 Personal history of nicotine dependence; Z98.890 Other specified postprocedural states; Z79.82 Long term (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; Z79.899 Other long term (current) drug therapy; Z20.822 Contact with and (suspected) exposure to COVID-19
CPT/HCPCS: 36415; 71045; 74177; 80048; 80053; 81003; 83036; 83605; 83690; 84484; 85025; 85060; 85610; 86850; 86900; 86901; 86922; 87502; 93005; 93010; 96375; 99285-25; A9270; C9113; J0696; J1170; J2405; J7121; P9016; Q9967; U0003

== ENCOUNTER 2022-11-24 12:42 | Inpatient (IN) | payer MEDICARE, BC ==
[~2022-11-24] VITALS: Ht 175.3 cm; Wt 69.2 kg
[~2022-11-24 12:42] MED LIST changes: +HYDROCODON-ACE1 EA10 PO; +OMEPRAZOLE20 MG PO; +OSELTAMIVIR PHO30 MG PO
--- OUTSIDE RECORDS SUMMARY | 2022-11-24 12:45 | XMS ---
PreManage Notification: ABDOULAYE CASTANO Security Hand Coper Events No recent Security Events currently on file CRITERIA MET - [facility] CARE PROVIDERS ARIEL RODRIGUES Physician School Commissioner 11/28/2019-Current PHONE: Unknown TANO MEJIA Current PHONE: [phone] ARPITA VELOZ Internal Medicine Current PHONE: Unknown Robel has no Care Guidelines for this patient. E.D. VISIT COUNT (12 MO.) 4 [facility] TOTAL 4 NOTE: Visits indicate total known visits. 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 - Polyneuropathy, unspecified - Low back pain, unspecified 09/12/2022 05:48 [facility] [place] TYPE: Emergency COMPLAINT: - WEAKNESS 06/05/2022 09:15 [facility] [place] TYPE: Emergency COMPLAINT: - SHOB INPATIENT VISIT TRACKING (12 MO.) 09/12/2022 10:25 [facility] [place] TYPE: Medical Surgical COMPLAINT: - ACUTE GI BLEED/BLOOD LOSS ANEMIA, ACUTE INFLU A DIAGNOSES: - Other fdc (current) drug therapy - Personal history of nicotine dependence - Influenza due to other identified influenza virus with other respiratory manifestations - Chronic pain syndrome - Arthropathic psoriasis, unspecified - Hyperlipidemia, unspecified - 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 truck driver (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 - Arthropathic psoriasis, unspecified - Essential (primary) hypertension - Hyperlipidemia, unspecified - Restless legs syndrome - Contact with and (suspected) exposure to COVID-19 - Other specified postprocedural states - Anemia, unspecified - Essential (primary) hypertension - Influenza due to other identified influenza virus with other respiratory manifestations - Chronic pain syndrome - Contact with and (suspected) exposure to COVID-19 - Restless legs syndrome - 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 truck driver (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 - Personal history of nicotine dependence - Other specified postprocedural states - Other fdc (current) drug therapy 06/05/2022 09:16 [facility] [place] TYPE: Observation COMPLAINT: - PNEUMONIA DIAGNOSES: - Type 2 diabetes mellitus with hyperglycemia - Personal history of nicotine dependence - Dehydration - Hypomagnesemia - Type 2 diabetes mellitus with diabetic polyneuropathy - Acute kidney failure, unspecified - Pneumonia, unspecified organism - Hyperlipidemia, unspecified - Dorsalgia, unspecified - Orthostatic hypotension - Other chronic pain - Atrioventricular block, first degree - Contact with and (suspected) exposure to COVID-19 [email or web address]
--- NOTE | 2022-11-24 16:00 | NUR ---
TRANSPORTED PATIENT FROM ER TO 127 VIA STRETCHER. PATIENT AWAKE, ALERT, ORIENTED X 4. PATIENT ON 4LNC. NO COMPLAINTS OF PAIN. PATIENT TRANSFERRED FROM STRETCHER TO BED WITHOUT ASSISTANCE, STOOD UP AND TRANSFERRED. CLOTHING AND CANE PLACED IN PATIENT CLOSET. LUNGS ARE DIMINISHED THROUGHT OUT WITH RHONCHI TO UPPER LOBES. ACTIVE BOWEL SOUNDS, ABDOMEN SOFT AND FLAT. PATIENT HAS NOT URINATED, DENIES NEED TO GO. SKIN APPEARS INTACT, UNABLE TO ASSESS COCCYX AT THIS TIME. PATIENT ORIENTED TO ROOM AND CALL DICKERSON SYSTEM, ACKNOWLEDGES UNDERSTANDING.
--- NOTE | 2022-11-24 16:04 | NUR ---
notified of critical lactic. 2.9. relayed to primary rn. lactic has improved
[2022-11-24] MEDS ORDERED: METFORMIN HCL500 MG PO (17:09)
[2022-11-24] MEDS ORDERED: GABAPENTIN300 MG PO (17:11)
--- NOTE | 2022-11-24 17:50 | NUR ---
PATIENT LAYING COMFORTABLY IN BED. BG OBTAINED AND INSULIN GIVEN ACCORDING TO SLIDING SCALE. PATIENT SAT UP IN BED TO EAT MEAL. PATIENT VERBALIZED UNDERSTANDING OF CALL LIGHT AND HAS BED RAILS UP.
--- NOTE | 2022-11-24 18:30 | NUR ---
PATIENT HAS NOT URINATED. NOTIFIED . PATIENT STATES HE MAY BE ABLE TO NOW, BUT DOES NOT FEEL THE NEED TO URINATE. WILL BLADDER SCAN IF PATIENT IS UNABLE TO URINATE. 1844 - PATIENT WAS ABLE TO URINATE 50 CC. REPORT TO PACKAGE MAKER. CARE TRANSFERRED, AT 1915
--- NOTE | 2022-11-24 21:36 | NUR ---
PATIENT PROVIDED WITH EVENING MEDS AND PRN PAIN MEDS FOR 7.10 PAIN IN HIS BACK, WHICH IS WORSE WITH COUGHING. PATIENT GOT UP TO THE BSC WITH ONLY CORD MANAGEMENT AND WAS ABLE TO VOID. PATIENT ON 4L NC AND REPORTED FEELING MORE SOB WITH ACTIVITY BUT RECOVERED QUICKLY.
--- NOTE | 2022-11-25 05:30 | NUR ---
PATIENT UP TO THE BSC. TOLERATED WELL. SLIGHLY SOB BUT MAINTAIN Sp02 >88% ON 4L NC. PATIENT VOIDED AND RETURNED TO BED. PATIENT WAS TALKING ABOUT THE "RED, WHITE AND BLUE PATCHES" ON HIS ARMS, WHICH HE MIGHT HAVE BEEN REFERING TO THE BANDS AND WIRES FOR THE MONITOR. HOWEVER, PATIENT IS UNSURE OF THE YEAR/DATE AND REPORTS "BUGS CRAWLING ALL OVER THE PLACE". PATIENT IS CALM AND OTHERWISE ORIENTED TO PERSON AND PLACE.
--- NOTE | 2022-11-25 06:26 | NUR ---
REPORTED PATIENT'S HALLUCINATIONS TO MD; VBG ORDERED. LAB CURRENTLY IN ROOM FOR REPEAT LAB DRAW DUE TO CBC CLOTTING.
--- NOTE | 2022-11-25 07:30 | NUR ---
PATIENT RESTING WITH EYES CLOSED. RR EVEN AND UNLABORED. REPORT RECEIVED, CARE ACCEPTED.
--- NOTE | 2022-11-25 08:00 | NUR ---
PATIENT UP TO BSC WITH STUDENT NURSE. PATIENT THEN TRANSFERRED TO CHAIR WITH STAND BY ASSIST ONLY. PATIENT ABLE TO TELL ME WHO HE IS, WHERE HE IS, THE DATE AND POTUS, HOWEVER, PATIENT APPEARS SLIGHTLY CONFUSED TO SITUATION AT TIMES. PATIENT DOES UNDERSTAND HE IS IN THE HOSPITAL. PATIENT'S RIGHT LUNGS DIMINISHED, THIS NURSE CANNOT HEAR LUNG SOUNDS IN LOWER LOBE, IS AWARE. LEFT LOBES WITH EXPIRATORY WHEEZES NOTED. RHONCHI THROUGHOUT UPPER LOBES WITH LOOSE,MOIST COUGH NOTED. ABDOMEN IS SOFT, FLAT WITH ACTIVE BOWEL SOUNDS. PATIENT URINATING WITHOUT DIFFICULTY, CLEAR, YELLOW URINE. SKIN INTACT BUT DRY. HAS A SCAB ON FOREHEAD.PATIENT IS WEAK TO STAND BUT STANDS UNASSISTED. PATIENT REMAINS IN RECLINER CHAIR WITH CALL DICKERSON IN REACH AND INSTRUCTIONS TO CALL IF NEEDED, PATIENT ACKNOWLEDGES UNDERSTANDING
--- NOTE | 2022-11-25 09:28 | NUR ---
JOHN TRANSFERED FROM BED TO COMODE TO CHAIR WITH SINGLE PERSON ASSIST. MEDICATIONS DELIVERED AND JOHN LEFT SITTING IN CHAIR WITH CALL LIGHT IN REACH. JOHN HAS NO QUESTIONS AT THIS TIME.
--- NOTE | 2022-11-25 10:55 | NUR ---
JOHN USED COMODE TO VOID WITH MINIMAL ASSISTNACE. PATIENT TRANSFERED FROM COMODE TO CHAIR WITH MINIMAL ASSISTANCE. PATIENT HAS CALL LIGHT AND HAS NO QUESSTIONS.
--- NOTE | 2022-11-25 12:21 | NUR ---
PATIENT BG 147, PATIENT BACK TO BED. BED ALARM IS ON.
--- NOTE | 2022-11-25 12:30 | NUR ---
CARE TRANSFERRED TO [place] FOR MY LUNCH BREAK. BLOOD ADMINISTRATION INITIATED WHILE GONE. ACCEPTED CARE BACK AT 1300, HOWEVER, MARLENE JACQUES CONTINUES TO ASSESS AND MONITOR BLOOD ADMINISTRATION.
--- NOTE | 2022-11-25 14:15 | NUR ---
REVIEWED ASSESSMENT OF STUDENT NURSE. THIS NURSE DOES NOT AGREE WITH ALL FINDINGS CHARTED, SPECIFICALLY LUNG SOUNDS. DISCUSSED FINDINGS WITH STUDENT NURSE.
--- NOTE | 2022-11-25 15:01 | NUR ---
MED REC COMPLETE
--- NOTE | 2022-11-25 15:33 | NUR ---
PATIENT SITTING IN CHAIR. PATIENT IS BECOMING INCREASINGLY CONFUSED. HE IS ORIENTED TO ANSWER QUESTIONS, HOWEVER, SITUATIONALLY HE IS CONFUSED. HE UNDERSTANDS HE IS BEING TRANSFERRED, BUT DOES NOT UNDERSTAND WE ARE WAITING FOR ACCEPTANCE AND KEEPS ASKING WHEN HE IS LEAVING. HE IS NOT UNDERSTANDING WHY WE ARE TRANSFERRING HIM. HE HAS ASKED MULTIPLE TIMES WHY HE HAS "ALL THESE WIRES". PATIENT HAS BEEN REORIENTED TO SITUATION AND SEEMS TO UNDERSTAND AT THIS TIME. SON IN LAW, KAREEM RÍOS, HAS BEEN UPDATED THROUGHOUT THE DAY FROM ME AND . HE HAS AGREED TO BLOOD TRANSFUSION AND TRANSFER.
--- NOTE | 2022-11-25 16:12 | NUR ---
TOOK CALL FROM PTS UMBERTO GARIBAY WHO STATES HE HAD MISSED SOME CALLS FROM HOSPITAL ASKING QUESTIONS REGARDING PT TRANSFER, DR CADENA NOTIFIED WHO PLANS TO CALL UMBERTO GARIBAY TO UPDATE HIM.
--- NOTE | 2022-11-25 16:25 | NUR ---
OBSERVED PATIENT SITTING IN CHAIR AND FOUND BLOOD ON ARMSS AND LEGS. PATIENT HAD NOT HAD THIS AT 1600. PATIENT'S IV INFILTRATED WHERE BLOOD WAS INFUSING. NOT CLEAR IF BLOOD WAS FROM THE PRBC UNIT OR FROM THE IV SITE. APPROXIMATELY 10-15 CC BLOOD LOSS ON FLOOR. PRBC WAS STOPPED. IV CHECKED AND ULTIMATELY DC'D. PRBC RESTARTED IN LEFT AC IV WITH NO DIFFICULTIES. CLEANED PATIENT.
--- NOTE | 2022-11-25 17:41 | EKG ---
[facility] [address] [facility] [place] [address] Signed Sinus tachycardia with 1st degree AV block Otherwise normal ECG When compared with ECG of 12-SEP-2022 06:36, Criteria for Inferior infarct are no longer present Confirmed by GARY CADENA MD ([id number]) on 11/25/2022 5:41:41 PM Electronically Signed By: GARY CADENA MD 11/25/22 174 PATIENT NAME: ABDOULAYE CASTANO Electrocardiogram DATE OF : 47 PHYSICIAN: GARY CADENA MD REPORT #: [id number] REPORT IS CONFIDENTIAL AND NOT TO BE RELEASED WITHOUT AUTHORIZATION
--- NOTE | 2022-11-25 17:42 | EKG ---
[facility] [address] [facility] [place] [address] Signed Sinus tachycardia with 1st degree AV block Possible Anterior infarct , age undetermined Abnormal ECG When compared with ECG of 24-NOV-2022 12:59, (Unconfirmed) QT has shortened Confirmed by GARY CADENA MD ([id number]) on 11/25/2022 5:42:20 PM Electronically Signed By: GARY CADENA MD 11/25/22 174 PATIENT NAME: OMAIRAABDOULAYE Electrocardiogram DATE OF : 47 PHYSICIAN: GARY CADENA MD REPORT #: [id number] REPORT IS CONFIDENTIAL AND NOT TO BE RELEASED WITHOUT AUTHORIZATION
--- NOTE | 2022-11-25 17:43 | NUR ---
PATIENT TRANSFERRED TO [facility] ROOM 409. REPORT CALLED TO KATY BAE RN AT 1810. PATIENT LEFT FACILITY AT 1743. REPORT GIVEN TO [facility] AT BEDSIDE. PATIENT WAS ALERT AND STILL SOMEWHAT CONFUSED AT TIME OF TRANSFER. IV INFUSING LR @85 CC/HR IN LEFT AC #20 GA. OXYGEN AT 3LNC. TWO UNITS PRBC INFUSED AND COMPLETED AT 1716. PATIENT TOLERATED WELL. FAMILY HAS BEEN NOTIFIED OF TRANSFER. ALL BELONGINGS SENT WITH PATIENT INCLUDING, CLOTHING (JEANS/JACKET/SHIRT/SOCKS/SHOES) BELT WITH LARGE BUCKLE, ONE HEARING AID (ON PATIENT), WALLET WITH MONEY THAT PATIENT ELECTED TO KEEP WITH HIM IN THE ROOM AND A CELL PHONE.
--- NOTE | 2022-11-25 17:53 | NUR ---
LE: THIS NURSE ATTEMPTED TO CALL SON, LANI, THIS MORNING, THREE TIMES. NO ANSWER BY PHONE, STRAIGHT TO VOICEMAIL. I CONTACTED RAGHAVENDRA, WHO IS ALSO HCPOA AND WHOM LANI SAID TO ALSO CALL AND WAS ABLE TO COMMUNICATE WITH HIM EACH TIME I CALLED. I ATTEMPTED TO CALL LANI AGAIN JUST NOW, AND AGAIN NO ANSWER.
--- NOTE | 2022-11-25 18:19 | NUR ---
LE: PLEASE SEE BLOOD INFUSION CHARTING FOR VITALS BETWEEN [phone].
== END 2022-11-25 17:37 | disposition short-term general hospital (02) | DRG 871 ==
LOC: ED 12:42 → CCU 14:48
PROVIDERS: ADMIT Internal Medicine; ATTEND Internal Medicine
DX: A40.3 Sepsis due to Streptococcus pneumoniae (principal); J13 Pneumonia due to Streptococcus pneumoniae; J96.01 Acute respiratory failure with hypoxia; R65.20 Severe sepsis without septic shock; U07.1 COVID-19; N17.9 Acute kidney failure, unspecified; J90 Pleural effusion, not elsewhere classified; I10 Essential (primary) hypertension; K75.9 Inflammatory liver disease, unspecified; K21.9 Gastro-esophageal reflux disease without esophagitis; E11.9 Type 2 diabetes mellitus without complications; E78.5 Hyperlipidemia, unspecified; G25.81 Restless legs syndrome; L40.50 Arthropathic psoriasis, unspecified; D50.0 Iron deficiency anemia secondary to blood loss (chronic); R59.0 Localized enlarged lymph nodes; R91.8 Other nonspecific abnormal finding of lung field; G89.4 Chronic pain syndrome
CPT/HCPCS: 36415; 36430; 71045; 71250; 76604; 80053; 82803; 83036; 83605; 83880; 85025; 86850; 86900; 86901; 86922; 87070; 87205; 87502; 93005; 93010; 94640; 94667; A9270; C9803; J0456; J0696; J1815; J7121; P9016; U0003

== ENCOUNTER 2023-02-05 11:58 | Emergency (ER) | payer MEDICARE, BC ==
[~2023-02-05] VITALS: Ht 175.3 cm; Wt 62.4 kg
--- NOTE | ~2023-02-05 | EKG ---
[facility] [address] [facility] [place], [place] [address] Draft EK completed, results pending confirmation PATIENT NAME: OMAIRAABDOULAYE Electrocardiogram DATE OF : 47 PHYSICIAN: PRELIMINARY REPORT #: [id number] REPORT IS CONFIDENTIAL AND NOT TO BE RELEASED WITHOUT AUTHORIZATION
[~2023-02-05 11:58] MED LIST changes: +PANTOPRAZOLE SO40 MG PO; +SUCRALFATE1 GM PO
--- OUTSIDE RECORDS SUMMARY | 2023-02-05 12:00 | XMS ---
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 E.D. VISIT COUNT (12 MO.) [address] [facility] TOTAL 6 NOTE: Visits indicate total known visits. ED/UCC VISIT TRACKING (12 MO.) 02/05/2023 11:59 [facility] [place] TYPE: Emergency COMPLAINT: - SHORTNESS OF BREATH 02/02/2023 17:05 [facility] [place] TYPE: Emergency COMPLAINT: - VOMITING 11/24/2022 12:42 [facility] [place] TYPE: Emergency COMPLAINT: - WEAKNESS 10/22/2022 20:59 [facility] TYPE: Emergency COMPLAINT: - BACK AND LEG PAIN DIAGNOSES: - Other chronic pain - Other fdc (current) drug therapy - [facility] (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 of oral hypoglycemic drugs - Personal history of nicotine dependence - [facility] (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 - Polyneuropathy, unspecified - Low back pain, unspecified 09/12/2022 05:48 [facility] TYPE: Emergency COMPLAINT: - WEAKNESS 06/05/2022 09:15 [facility] TYPE: Emergency COMPLAINT: - SHOB INPATIENT VISIT TRACKING (12 MO.) 02/02/2023 17:06 [facility] TYPE: Observation COMPLAINT: - UPPER GI BLEED 11/25/2022 19:48 [facility] [place] TYPE: Medical Surgical DIAGNOSES: - Loculated PE, PNA, COVID + - Acute respiratory failure with hypoxia 11/24/2022 14:48 [facility] TYPE: Critical Care COMPLAINT: - PNA DIAGNOSES: - Restless legs syndrome - Pleural effusion, not elsewhere classified - Pneumonia due to Streptococcus pneumoniae - Chronic pain syndrome - Essential (primary) hypertension - Type 2 diabetes mellitus without complications - Inflammatory liver disease, unspecified - Inflammatory liver disease, unspecified - Sepsis due to Streptococcus pneumoniae - Sepsis, unspecified organism - Localized enlarged lymph nodes - Pleural effusion, not elsewhere classified - Localized enlarged lymph nodes - Restless legs syndrome - Acute respiratory failure with hypoxia - Chronic pain syndrome - Hyperlipidemia, unspecified - Other nonspecific abnormal finding of lung field - Severe sepsis without septic shock - Iron deficiency anemia secondary to blood loss (chronic) - Sepsis due to Streptococcus pneumoniae - Gastro-esophageal reflux disease without esophagitis - Essential (primary) hypertension - Acute kidney failure, unspecified - Other nonspecific abnormal finding of lung field - Gastro-esophageal reflux disease without esophagitis - Acute respiratory failure with hypoxia - COVID-19 - Arthropathic psoriasis, unspecified - COVID-19 - Iron deficiency anemia secondary to blood loss (chronic) - Type 2 diabetes mellitus without complications - Pneumonia due to Streptococcus pneumoniae - Acute kidney failure, unspecified - Arthropathic psoriasis, unspecified - Hyperlipidemia, unspecified - Severe sepsis without septic shock 09/12/2022 10:[address] [facility] [place] TYPE: Medical Surgical COMPLAINT: - ACUTE GI BLEED/BLOOD LOSS ANEMIA, ACUTE INFLU A DIAGNOSES: - Other terminal manager (current) drug therapy - Personal history of nicotine dependence - Influenza due to other identified influenza virus with other respiratory manifestations - Chronic pain syndrome - Arthropathic psoriasis, unspecified - Hyperlipidemia, unspecified - [facility] (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 - Arthropathic psoriasis, [...] to COVID-19 - Restless legs syndrome - [facility] (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 - Personal history [...] Contact with and (suspected) exposure to COVID-19 [email or web address]
[2023-02-05 22:56] VITALS: BP 153/83
== END 2023-02-05 22:55 | disposition short-term general hospital (02) ==
LOC: ED 11:58
DX: J86.9 Pyothorax without fistula (principal); I10 Essential (primary) hypertension; E78.5 Hyperlipidemia, unspecified; Z79.899 Other long term (current) drug therapy; Z79.82 Long term (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
CPT/HCPCS: 36415; 71045; 74177; 80053; 81003; 83605; 85025; 86850; 86900; 86901; 87502; 93005; 93010; C9113; J2270; J2543; Q9967; U0003

== ENCOUNTER 2023-05-02 18:27 | Observation (INO) | payer MEDICARE, BC ==
[~2023-05-02] VITALS: Ht 175.3 cm; Wt 63.4 kg
--- OUTSIDE RECORDS SUMMARY | ~2023-05-02 | XMS | Continuity of Care Document ---
Demographics + + + | Address | [address] | | | [place] [address] | + + + | Preferred Language | Unknown | + + + | Marital Status | | + + + | Synagogue Affiliation | Unknown | + + + | Race | White | + + + | Ethnic Group | Not or | + + + Author + + + | Author | [facility] | + + + | Organization | [facility] | + + + | Address | [address] | | | [place] [address] | + + + | Phone | | + + + Care Team Providers + + + + | Care Asset Management Analyst Name | Role | Phone | + + + + Unavailable | Unavailable | + + + + Unavailable | Unavailable | + + + + Unavailable | Unavailable | + + + + Allergies and Intolerances + + + + + + | date | description | facility | reaction | severity | + + + + + + | (no date) | NO KNOWN [facility] | (no reaction) | (no severity) | | | ALLERGIES | [facility] | | | | [place] | | | + + + + + + | (no date) | NO KNOWN DRUG | [facility] | (no reaction) | (no severity) | | | ALLERGIES | [facility] | | | + + + + + + Encounters No information. Functional Status No information. Immunizations No information. Medications + + + + | date | description | facility | + + + + | 2022-06-09 00:00 | METHOTREXATE SODIUM | [facility] | + + + + | 2022-09-15 00:00 | METHOTREXATE SODIUM | [facility] | + + + + | 2022-10-22 00:00 | METHOTREXATE SODIUM | [facility] | + + + + | 2022-11-25 00:00 | METHOTREXATE SODIUM | [facility] | + + + + | 2023-02-04 00:00 | METHOTREXATE SODIUM | [facility] | + + + + | 2023-02-05 00:00 | METHOTREXATE SODIUM | [facility] | + + + + | 2022-06-09 00:00 | DIPHENHYDRAMINE HCL | [facility] | + + + + | 2022-09-15 00:00 | DIPHENHYDRAMINE HCL | [facility] | + + + + | 2022-10-22 00:00 | DIPHENHYDRAMINE HCL | [facility] | + + + + | 2022-11-25 00:00 | DIPHENHYDRAMINE HCL | [facility] | + + + + | 2023-02-04 00:00 | DIPHENHYDRAMINE HCL | [facility] | + + + + | 2023-02-05 00:00 | DIPHENHYDRAMINE HCL | [facility] | + + + + | 2022-06-09 00:00 | | [facility] | | | CHLORPHENIR/PHENYLEPH/ASPIR | | | | [place] | | + + + + | 2022-09-15 00:00 | | [facility] | | | CHLORPHENIR/PHENYLEPH/ASPIR | | | | [place] | | + + + + | 2022-10-22 00:00 | | [facility] | | | CHLORPHENIR/PHENYLEPH/ASPIR | | | | [place] | | + + + + | 2022-11-25 00:00 | | [facility] | | | CHLORPHENIR/PHENYLEPH/ASPIR | | | | [place] | | + + + + | 2023-02-04 00:00 | | [facility] | | | CHLORPHENIR/PHENYLEPH/ASPIR | | | | [place] | | + + + + | 2023-02-05 00:00 | | [facility] | | | CHLORPHENIR/PHENYLEPH/ASPIR | | | | [place] | | + + + + | 2022-06-09 00:00 | POTASSIUM CHLORIDE | [facility] | + + + + | 2022-09-15 00:00 | POTASSIUM CHLORIDE | [facility] | + + + + | 2022-10-22 00:00 | POTASSIUM CHLORIDE | [facility] | + + + + | 2022-11-25 00:00 | POTASSIUM CHLORIDE | [facility] | + + + + | 2023-02-04 00:00 | POTASSIUM CHLORIDE | [facility] | + + + + | 2023-02-05 00:00 | POTASSIUM CHLORIDE | [facility] | + + + + | 2022-09-15 00:00 | OMEPRAZOLE | [facility] | + + + + | 2022-06-06 00:00 | CEFDINIR | [facility] | + + + + | 2019-11-28 00:00 | ATORVASTATIN CALCIUM | [facility] | + + + + | 2022-06-09 00:00 | ATORVASTATIN CALCIUM | [facility] | + + + + | 2022-09-15 00:00 | ATORVASTATIN CALCIUM | [facility] | + + + + | 2022-10-22 00:00 | ATORVASTATIN CALCIUM | [facility] | + + + + | 2022-11-25 00:00 | ATORVASTATIN CALCIUM | [facility] | + + + + | 2023-02-04 00:00 | ATORVASTATIN CALCIUM | [facility] | + + + + | 2023-02-05 00:00 | ATORVASTATIN CALCIUM | [facility] | + + + + | 2019-11-28 00:00 | ASPIRIN | [facility] | + + + + | 2022-06-06 00:00 | AZITHROMYCIN | [facility] | + + + + | 2022-06-09 00:00 | FERROUS SULFATE | [facility] | + + + + | 2022-09-15 00:00 | FERROUS SULFATE | [facility] | + + + + | 2022-10-22 00:00 | FERROUS SULFATE | [facility] | + + + + | 2022-11-25 00:00 | FERROUS SULFATE | [facility] | + + + + | 2022-06-09 00:00 | FOLIC ACID | [facility] | + + + + | 2022-09-15 00:00 | FOLIC ACID | [facility] | + + + + | 2022-10-22 00:00 | FOLIC ACID | [facility] | + + + + | 2022-11-25 00:00 | FOLIC ACID | [facility] | + + + + | 2023-02-04 00:00 | FOLIC ACID | [facility] | + + + + | 2023-02-05 00:00 | FOLIC ACID | [facility] | + + + + | 2022-11-25 00:00 | GABAPENTIN | [facility] | + + + + | 2023-02-04 00:00 | GABAPENTIN | [facility] | + + + + | 2023-02-05 00:00 | GABAPENTIN | [facility] | + + + + | 2022-06-09 00:00 | GABAPENTIN | [facility] | + + + + | 2022-09-15 00:00 | GABAPENTIN | [facility] | + + + + | 2022-10-22 00:00 | GABAPENTIN | [facility] | + + + + | 2023-02-04 00:00 | PANTOPRAZOLE SODIUM | [facility] | + + + + | 2023-02-04 00:00 | SUCRALFATE | [facility] | + + + + | 2022-09-15 00:00 | Oseltamivir Phosphate | [facility] | + + + + | 2022-06-09 00:00 | CYCLOBENZAPRINE HCL | [facility] | + + + + | 2022-09-15 00:00 | CYCLOBENZAPRINE HCL | [facility] | + + + + | 2022-10-22 00:00 | CYCLOBENZAPRINE HCL | [facility] | + + + + | 2022-11-25 00:00 | CYCLOBENZAPRINE HCL | [facility] | + + + + | 2023-02-04 00:00 | CYCLOBENZAPRINE HCL | [facility] | + + + + | 2023-02-05 00:00 | CYCLOBENZAPRINE HCL | [facility] | + + + + | 2022-06-09 00:00 | HYDROCODONE | [facility] | | | BIT/ACETAMINOPHEN | | + + + + | 2022-09-15 00:00 | HYDROCODONE | [facility] | | | BIT/ACETAMINOPHEN | | + + + + | 2022-10-22 00:00 | [facility]OCOD[facility] | | | BIT/ACETAMINOPHEN | | + + + + | 2022-11-25 00:00 | HYDROCODONE | [facility] | | | BIT/ACETAMINOPHEN | | + + + + | 2023-02-04 00:00 | HYDROCODONE | [facility] | | | BIT/ACETAMINOPHEN | | + + + + | 2023-02-05 00:00 | HYDROCODONE | [facility] | | | BIT/ACETAMINOPHEN | | + + + + | 2022-10-22 00:00 | HYDROCODONE | [facility] | | | BIT/ACETAMINOPHEN | | + + + + | 2022-06-09 00:00 | PRAMIPEXOLE DI-HCL | [facility] | + + + + | 2022-09-15 00:00 | PRAMIPEXOLE DI-HCL | [facility] | + + + + | 2022-10-22 00:00 | PRAMIPEXOLE DI-HCL | [facility] | + + + + | 2022-11-25 00:00 | PRAMIPEXOLE DI-HCL | [facility] | + + + + | 2023-02-04 00:00 | PRAMIPEXOLE DI-HCL | [facility] | + + + + | 2023-02-05 00:00 | PRAMIPEXOLE DI-HCL | [facility] | + + + + | 2019-11-28 00:00 | METFORMIN HCL | [facility] | + + + + | 2022-11-25 00:00 | METFORMIN HCL | [facility] | + + + + | 2023-02-04 00:00 | METFORMIN HCL | [facility] | + + + + | 2023-02-05 00:00 | METFORMIN HCL | [facility] | + + + + | 2022-06-09 00:00 | METOPROLOL TARTRATE | [facility] | + + + + | 2022-09-15 00:00 | METOPROLOL TARTRATE | [facility] | + + + + | 2022-10-22 00:00 | METOPROLOL TARTRATE | [facility] | + + + + | 2022-11-25 00:00 | METOPROLOL TARTRATE | [facility] | + + + + | 2023-02-04 00:00 | METOPROLOL TARTRATE | [facility] | + + + + | 2023-02-05 00:00 | METOPROLOL TARTRATE | [facility] | + + + + | 2022-06-09 00:00 | VERAPAMIL HCL | [facility] | + + + + | 2022-09-15 00:00 | VERAPAMIL HCL | [facility] | + + + + | 2022-10-22 00:00 | VERAPAMIL HCL | [facility] | + + + + | 2022-11-25 00:00 | VERAPAMIL HCL | [facility] | + + + + | 2023-02-04 00:00 | VERAPAMIL HCL | [facility] | + + + + | 2023-02-05 00:00 | VERAPAMIL HCL | [facility] | + + + + Problems + + + + | date | description | facility | + + + + | 2019-06-13 06:02 | Gastro-esophageal reflux | [facility] | | | disease with esophagitis | [place] | + + + + | 2019-11-27 00:00 | Transient ischemic attack | [facility] | + + + + | 2020-01-17 00:00 | Melena | [facility] | + + + + | 2021-03-31 09:37:45 | Mixed hyperlipidemia | [facility] | | | | Care | + + + + | 2021-03-31 09:37:45 | Essential (primary) | [facility] | | | hypertension | Care | + + + + | 2022-06-06 00:00 | Diabetes mellitus | [facility] | + + + + | 2022-06-06 00:00 | Hypomagnesemia | [facility] | + + + + | 2022-06-06 00:00 | Pneumonia | [facility] | + + + + | 2022-06-06 00:00 | Acute kidney injury | [facility] | + + + + | 2022-09-12 00:00 | Anemia | [facility] | + + + + | 2022-09-12 00:00 | Gastrointestinal | [facility] | | | hemorrhage | | + + + + | 2022-10-22 00:00 | Acute exacerbation of | [facility] | | | chronic low back pain | | + + + + | 2022-11-24 00:00 | Sepsis | [facility] | + + + + | 2023-02-02 00:00 | Upper gastrointestinal | [facility] | | | hemorrhage | | + + + + | 2023-02-05 00:00 | Empyema | [facility] | + + + + | 2023-02-05 11:59 | HYPERLIPIDEMIA, | [facility] | | | UNSPECIFIED | | + + + + | 2023-02-05 11:59 | Essential (primary) | [facility] | | | hypertension | | + + + + | 2023-02-05 11:59 | PYOTHORAX WITHOUT FISTULA | [facility] | + + + + | 2023-02-05 11:59 | SHORTNESS OF BREATH | [facility] | + + + + | 2023-02-05 11:59 | CORRECTION (CURRENT) USE OF | [facility] | | | ASPIRIN | | + + + + | 2023-02-05 11:59 | OTHER CORRECTION (CURRENT) | [facility] | | | DRUG THERAPY | | + + + + | 2023-02-14 16:21:05 | Pyothorax without fistula | [facility] | + + + + | 2023-02-14 16:21:05 | Weakness | [facility] | + + + + | 2023-02-21 14:51 | PNEUMONIA, UNSPECIFIED | [facility] | | | ORGANISM | | + + + + | 2023-02-21 14:51 | PYOTHORAX WITHOUT FISTULA | [facility] | + + + + | 2023-03-06 14:20 | PYOTHORAX WITHOUT FISTULA | [facility] | + + + + Procedures + + + + | date | description | facility | + + + + | 2022-02-09 00:00 | EXTRACTION OF ILIAC BONE | [facility] | | | MARROW, PERC APPROACH, | | | | DIAGN | | + + + + | 2022-02-09 00:00 | DX BONE MARROW BIOPSIES | [facility] | + + + + Results/Labs +--------+--------+ +---------+--------+---------+ | test | date | facility | value | unit | notes | +--------+--------+ +---------+--------+---------+ + + | Result panel 1 | + + + + + +-------+ + + | | 2022-02-09 | [facility] | 5.1 | (missing) | (missing) | | (unavailable | 10:40 | [facility] | | | | + + + +-------+ + + + + | Result panel 2 | + + + + + +-------+ + + | | 2022-02-09 | [facility] | 2.0 | (missing) | (missing) | | (unavailable | 10:40 | [facility] | | | | + + + +-------+ + + + + | Result panel 3 | + + + + + +-------+ + + | | 2022-02-09 | [facility] | 0.4 | (missing) | (missing) | | (unavailable | 10:40 | [facility] | | | | + + + +-------+ + + + + | Result panel 4 | + + + + + +-------+ + + | | 2022-02-09 | [facility] | 0.3 | (missing) | (missing) | | (unavailable | 10:40 | [facility] | | | | + + + +-------+ + + + + | Result panel 5 | + + + + + +-------+ + + | | 2022-02-09 | [facility] | 0.1 | (missing) | (missing) | | (unavailable | 10:40 | [facility] | | | | + + + +-------+ + + + + | Result panel 6 | + + + + + + + + + | | 2022-06-01 | [facility] | YELLOW | (missing) | (missing) | | (unavailable | 16:25 | [facility] | | | | + + + + + + + + + | Result panel 7 | + + + + + +---------+ + + | | 2022-06-01 | [facility] | CLEAR | (missing) | (missing) | | (unavailable | 16:25 | [facility] | | | | + + + +---------+ + + + + | Result panel 8 | + + + + + + + + + | | 2022-06-01 | [facility] | NEGATIVE | (missing) | (missing) | | (unavailable | 16:25 | [facility] | | | | + + + + + + + + + | Result panel 9 | + + + + + + + + + | | 2022-06-01 | [facility] | NEGATIVE | (missing) | (missing) | | (unavailable | 16:25 | [facility] | | | | + + + + + + + + + | Result panel 10 | + + + + + + + + + | | 2022-06-01 | [facility] | NEGATIVE | (missing) | (missing) | | (unavailable | 16:25 | [facility] | | | | + + + + + + + + + | Result panel 11 | + + + + + +---------+ + + | | 2022-06-01 | [facility] | 1.020 | (missing) | (missing) | | (unavailable | 16:25 | [facility] | | | | + + + +---------+ + + + + | Result panel 12 | + + + + + + + + + | | 2022-06-01 | [facility] | NEGATIVE | (missing) | (missing) | | (unavailable | 16:25 | [facility] | | | | + + + + + + + + + | Result panel 13 | + + + + + +-------+ + + | | 2022-06-01 | [facility] | 6.0 | (missing) | (missing) | | (unavailable | 16:25 | [facility] | | | | + + + +-------+ + + + + | Result panel 14 | + + + + + + + + + | | 2022-06-01 | [facility] | NEGATIVE | (missing) | (missing) | | (unavailable | 16:25 | [facility] | | | | + + + + + + + + + | Result panel 15 | + + + + + + + + + | | 2022-06-01 | [facility] | NORMAL | (missing) | (missing) | | (unavailable | 16:25 | [facility] | | | | + + + + + + + + + | Result panel 16 | + + + + + + + + + | | 2022-06-01 | [facility] | NEGATIVE | (missing) | (missing) | | (unavailable | 16:25 | [facility] | | | | + + + + + + + + + | Result panel 17 | + + + + + + + + + | | 2022-06-01 | [facility] | NEGATIVE | (missing) | (missing) | | (unavailable | 16:25 | [facility] | | | | + + + + + + + + + | Result panel 18 | + + + + + + + + + | | 2022-06-05 | [facility] | SEE | (missing) | (missing) | | (unavailable | 09:33 | [facility] | COMMENTS | | | | ) | | [facility] | | | | + + + + + + + + + | Result panel 19 | + + + + + +--------+ + + | | 2022-06-05 | [facility] | 0.41 | (missing) | (missing) | | (unavailable | 09:33 | [facility] | | | | + + + +--------+ + + + + | Result panel 20 | + + + + + +-------+ + + | | 2022-06-05 | [facility] | 8.2 | (missing) | (missing) | | (unavailable | 09:33 | [facility] | | | | + + + +-------+ + + + + | Result panel 21 | + + + + + +-------+ + + | | 2022-06-05 | [facility] | 3.6 | (missing) | (missing) | | (unavailable | 09:33 | [facility] | | | | + + + +-------+ + + + + | Result panel 22 | + + + + + +-------+ + + | | 2022-06-05 | [facility] | 4.6 | (missing) | (missing) | | (unavailable | 09:33 | [facility] | | | | + + + +-------+ + + + + | Result panel 23 | + + + + + +--------+ + + | | 2022-06-05 | [facility] | 0.78 | (missing) | (missing) | | (unavailable | 09:33 | [facility] | | | | + + + +--------+ + + + + | Result panel 24 | + + + + + +-------+ + + | | 2022-06-05 | [facility] | 0.5 | (missing) | (missing) | | (unavailable | 09:33 | [facility] | | | | + + + +-------+ + + + + | Result panel 25 | + + + + + +------+ + + | | 2022-06-05 | [facility] | 30 | (missing) | (missing) | | (unavailable | 09:33 | [facility] | | | | + + + +------+ + + + + | Result panel 26 | + + + + + +------+ + + | | 2022-06-05 | [facility] | 43 | (missing) | (missing) | | (unavailable | 09:33 | [facility] | | | | + + + +------+ + + + + | Result panel 27 | + + + + + +------+ + + | | 2022-06-05 | [facility] | 92 | (missing) | (missing) | | (unavailable | 09:33 | [facility] | | | | + + + +------+ + + + + | Result panel 28 | + + + + + +--------+ + + | | 2022-06-05 | [facility] | 25.4 | (missing) | (missing) | | (unavailable | 09:33 | [facility] | | | | + + + +--------+ + + + + | Result panel 29 | + + + + + +-------+ + + | | 2022-06-05 | [facility] | 6.6 | (missing) | (missing) | | (unavailable | 09:33 | [facility] | | | | + + + +-------+ + + + + | Result panel 30 | + + + + + + + + + | | 2022-06-05 | [facility] | NEGATIVE | (missing) | (missing) | | (unavailable | 09:48 | [facility] | | | | + + + + + + + + + | Result panel 31 | + + + + + + + + + | | 2022-06-05 | [facility] | NEGATIVE | (missing) | (missing) | | (unavailable | 09:48 | [facility] | | | | + + + + + + + + + | Result panel 32 | + + + + + + + + + | | 2022-06-05 | [facility] | NEGATIVE | (missing) | (missing) | | (unavailable | 09:48 | [facility] | | | | + + + + + + + + + | Result panel 33 | + + + + + + + + + | | 2022-06-05 | [facility] | NEGATIVE | (missing) | (missing) | | (unavailable | 09:48 | [facility] | | | | + + + + + + + + + | Result panel 34 | + + + + + +-------+ + + | | 2022-06-06 | [facility] | 8.2 | (missing) | (missing) | | (unavailable | 05:35 | [facility] | | | | + + + +-------+ + + + + | Result panel 35 | + + + + + +--------+ + + | | 2022-06-06 | [facility] | 3.10 | (missing) | (missing) | | (unavailable | 05:35 | [facility] | | | | + + + +--------+ + + + + | Result panel 36 | + + + + + +-------+ + + | | 2022-06-06 | [facility] | 8.9 | (missing) | (missing) | | (unavailable | 05:35 | [facility] | | | | + + + +-------+ + + + + | Result panel 37 | + + + + + +--------+ + + | | 2022-06-06 | [facility] | 26.9 | (missing) | (missing) | | (unavailable | 05:35 | [facility] | | | | + + + +--------+ + + + + | Result panel 38 | + + + + + +--------+ + + | | 2022-06-06 | [facility] | 86.8 | (missing) | (missing) | | (unavailable | 05:35 | [facility] | | | | + + + +--------+ + + + + | Result panel 39 | + + + + + +--------+ + + | | 2022-06-06 | [facility] | 28.8 | (missing) | (missing) | | (unavailable | 05:35 | [facility] | | | | + + + +--------+ + + + + | Result panel 40 | + + + + + +--------+ + + | | 2022-06-06 | [facility] | 33.2 | (missing) | (missing) | | (unavailable | 05:35 | [facility] | | | | + + + +--------+ + + + + | Result panel 41 | + + + + + +--------+ + + | | 2022-06-06 | [facility] | 19.5 | (missing) | (missing) | | (unavailable | 05:35 | [facility] | | | | + + + +--------+ + + + + | Result panel 42 | + + + + + +-------+ + + | | 2022-06-06 | [facility] | 415 | (missing) | (missing) | | (unavailable | 05:35 | [facility] | | | | + + + +-------+ + + + + | Result panel 43 | + + + + + +--------+ + + | | 2022-06-06 | [facility] | 64.5 | (missing) | (missing) | | (unavailable | 05:35 | [facility] | | | | + + + +--------+ + + + + | Result panel 44 | + + + + + +--------+ + + | | 2022-06-06 | [facility] | 27.1 | (missing) | (missing) | | (unavailable | 05:35 | [facility] | | | | + + + +--------+ + + + + | Result panel 45 | + + + + + +-------+ + + | | 2022-06-06 | [facility] | 5.6 | (missing) | (missing) | | (unavailable | 05:35 | [facility] | | | | + + + +-------+ + + + + | Result panel 46 | + + + + + +-------+ + + | | 2022-06-06 | [facility] | 2.1 | (missing) | (missing) | | (unavailable | 05:35 | [facility] | | | | + + + +-------+ + + + + | Result panel 47 | + + + + + +-------+ + + | | 2022-06-06 | [facility] | 0.7 | (missing) | (missing) | | (unavailable | 05:35 | [facility] | | | | + + + +-------+ + + + + | Result panel 48 | + + + + + +-------+---------+ + | | 2022-06-06 | [facility] | 127 | mg/dL | (missing) | | (unavailable | 05:35 | [facility] | | | | + + + +-------+---------+ + + + | Result panel 49 | + + + + + +------+---------+ + | | 2022-06-06 | [facility] | 36 | mg/dL | (missing) | | (unavailable | 05:35 | [facility] | | | | + + + +------+---------+ + + + | Result panel 50 | + + + + + +--------+---------+ + | | 2022-06-06 | [facility] | 1.12 | mg/dL | (missing) | | (unavailable | 05:35 | [facility] | | | | + + + +--------+---------+ + + + | Result panel 51 | + + + + + +------+ + + | | 2022-06-06 | [facility] | 69 | (missing) | (missing) | | (unavailable | 05:35 | [facility] | | | | + + + +------+ + + + + | Result panel 52 | + + + + + +---------+ + + | | 2022-06-06 | [facility] | 32.14 | (missing) | (missing) | | (unavailable | 05:35 | [facility] | | | | + + + +---------+ + + + + | Result panel 53 | + + + + + +-------+ + + | | 2022-06-06 | [facility] | 142 | (missing) | (missing) | | (unavailable | 05:35 | [facility] | | | | + + + +-------+ + + + + | Result panel 54 | + + + + + +-------+ + + | | 2022-06-06 | [facility] | 3.8 | (missing) | (missing) | | (unavailable | 05:35 | [facility] | | | | + + + +-------+ + + + + | Result panel 55 | + + + + + +-------+ + + | | 2022-06-06 | [facility] | 105 | (missing) | (missing) | | (unavailable | 05:35 | [facility] | | | | + + + +-------+ + + + + | Result panel 56 | + + + + + +------+ + + | | 2022-06-06 | [facility] | 28 | (missing) | (missing) | | (unavailable | 05:35 | [facility] | | | | + + + +------+ + + + + | Result panel 57 | + + + + + +--------+ + + | | 2022-06-06 | [facility] | 12.8 | (missing) | (missing) | | (unavailable | 05:35 | [facility] | | | | + + + +--------+ + + + + | Result panel 58 | + + + + + +-------+---------+ + | | 2022-06-06 | [facility] | 9.3 | mg/dL | (missing) | | (unavailable | 05:35 | [facility] | | | | + + + +-------+---------+ + + + | Result panel 59 | + + + + + +-------+---------+ + | | 2022-06-06 | [facility] | 2.0 | mg/dL | (missing) | | (unavailable | 05:35 | [facility] | | | | + + + +-------+---------+ + + + | Result panel 60 | + + + + + +-------+ + + | | 2022-06-06 | [facility] | 101 | (missing) | (missing) | | (unavailable | 11:36 | [facility] | | | | + + + +-------+ + + + + | Result panel 61 | + + + + + + + + + | | 2022-09-12 | [facility] | (missing) | (missing) | (missing) | | (unavailable | 06:34:08 | [facility] | | | | + + + + + + + + + | Result panel 62 | + + + + + +--------+ + + | | 2022-09-12 | [facility] | 13.7 | (missing) | (missing) | | (unavailable | 06:34:08 | [facility] | | | | + + + +--------+ + + + + | Result panel 63 | + + + + + +--------+ + + | | 2022-09-12 | [facility] | 1.08 | (missing) | (missing) | | (unavailable | :34:08 | [facility] | | | | + + + +--------+ + + + + | Result panel 64 | + + + + + +-------+ + + | | 2022-09-12 | [facility] | 7.5 | (missing) | (missing) | | (unavailable | 06:34:08 | [facility] | | | | + + + +-------+ + + + + | Result panel 65 | + + + + + +-------+ + + | | 2022-09-12 | [facility] | 3.3 | (missing) | (missing) | | (unavailable | 06:34:08 | [facility] | | | | + + + +-------+ + + + + | Result panel 66 | + + + + + +-------+ + + | | 2022-09-12 | [facility] | 4.2 | (missing) | (missing) | | (unavailable | 06:34:08 | [facility] | | | | + + + +-------+ + + + + | Result panel 67 | + + + + + +--------+ + + | | 2022-09-12 | [facility] | 0.79 | (missing) | (missing) | | (unavailable | 06:34:08 | [facility] | | | | + + + +--------+ + + + + | Result panel 68 | + + + + + +-------+ + + | | 2022-09-12 | [facility] | 0.4 | (missing) | (missing) | | (unavailable | 06:34:08 | [facility] | | | | + + + +-------+ + + + + | Result panel 69 | + + + + + +------+ + + | | 2022-09-12 | [facility] | 30 | (missing) | (missing) | | (unavailable | 06:34:08 | [facility] | | | | + + + +------+ + + + + | Result panel 70 | + + + + + +------+ + + | | 2022-09-12 | [facility] | 24 | (missing) | (missing) | | (unavailable | 06:34:08 | [facility] | | | | + + + +------+ + + + + | Result panel 71 | + + + + + +------+ + + | | 2022-09-12 | [facility] | 78 | (missing) | (missing) | | (unavailable | 06:34:08 | [facility] | | | | + + + +------+ + + + + | Result panel 72 | + + + + + +-------+ + + | | 2022-09-12 | [facility] | 107 | (missing) | (missing) | | (unavailable | 06:34:08 | [facility] | | | | + + + +-------+ + + + + | Result panel 73 | + + + + + +--------+ + + | | 2022-09-12 | [facility] | 25.4 | (missing) | (missing) | | (unavailable | 06:34:08 | [facility] | | | | + + + +--------+ + + + + | Result panel 74 | + + + + + +-------+ + + | | 2022-09-12 | [facility] | 1.7 | (missing) | (missing) | | (unavailable | 06:34:08 | [facility] | | | | + + + +-------+ + + + + | Result panel 75 | + + + + + + + + + | | 2022-09-12 | [facility] | NEGATIVE | (missing) | (missing) | | (unavailable | 06:34:08 | [facility] | | | | + + + + + + + + + | Result panel 76 | + + + + + + + + + | | 2022-09-12 | [facility] | COMPATIBLE | (missing) | (missing) | | (unavailable | 06:34:08 | [facility] | | | | + + + + + + + + + | Result panel 77 | + + + + + + + + + | | 2022-09-12 | [facility] | COMPATIBLE | (missing) | (missing) | | (unavailable | 06:34:08 | [facility] | | | | + + + + + + + + + | Result panel 78 | + + + + + + + + + | | 2022-09-12 | [facility] | COMPATIBLE | (missing) | (missing) | | (unavailable | 06:34:08 | [facility] | | | | + + + + + + + + + | Result panel 79 | + + + + + + + + + | | 2022-09-12 | [facility] | COMPATIBLE | (missing) | (missing) | | (unavailable | 06:34:08 | [facility] | | | | + + + + + + + + + | Result panel 80 | + + + + + + + + + | | 2022-09-12 | [facility] | | (missing) | (missing) | | (unavailable | 06:34:08 | [facility] | [phone] | | | | ) | | [facility] | 002 | | | + + + + + + + + + | Result panel 81 | + + + + + + + + + | | 2022-09-12 | [facility] | | (missing) | (missing) | | (unavailable | 06:34:08 | [facility] | [phone] | | | | ) | | [facility] | 003 | | | + + + + + + + + + | Result panel 82 | + + + + + + + + + | | 2022-09-12 | [facility] | BLOOD IN | (missing) | (missing) | | (unavailable | 06:34:08 | [facility] | | | | + + + + + + + + + | Result panel 83 | + + + + + +-----+ + + | | 2022-09-12 | [facility] | O | (missing) | (missing) | | (unavailable | 07:17:08 | [facility] | | | | + + + +-----+ + + + + | Result panel 84 | + + + + + + + + + | | 2022-09-12 | [facility] | POSITIVE | (missing) | (missing) | | (unavailable | 07:17:08 | [facility] | | | | + + + + + + + + + | Result panel 85 | + + + + + + + + + | | 2022-09-12 | [facility] | NEGATIVE | (missing) | (missing) | | (unavailable | 07:30:08 | [facility] | | | | + + + + + + + + + | Result panel 86 | + + + + + + + + + | | 2022-09-12 | [facility] | POSITIVE | (missing) | (missing) | | (unavailable | 07:30:08 | [facility] | | | | + + + + + + + + + | Result panel 87 | + + + + + + + + + | | 2022-09-12 | [facility] | NEGATIVE | (missing) | (missing) | | (unavailable | 07:30:08 | [facility] | | | | + + + + + + + + + | Result panel 88 | + + + + + + + + + | | 2022-09-12 | [facility] | NEGATIVE | (missing) | (missing) | | (unavailable | 07:30:08 | [facility] | | | | + + + + + + + + + | Result panel 89 | + + + + + + + + + | | 2022-09-12 | [facility] | YELLOW | (missing) | (missing) | | (unavailable | 16:55:08 | [facility] | | | | + + + + + + + + + | Result panel 90 | + + + + + +---------+ + + | | 2022-09-12 | [facility] | CLEAR | (missing) | (missing) | | (unavailable | 16:55:08 | [facility] | | | | + + + +---------+ + + + + | Result panel 91 | + + + + + + + + + | | 2022-09-12 | [facility] | NEGATIVE | (missing) | (missing) | | (unavailable | 16:55:08 | [facility] | | | | + + + + + + + + + | Result panel 92 | + + + + + + + + + | | 2022-09-12 | [facility] | NEGATIVE | (missing) | (missing) | | (unavailable | 16:55:08 | [facility] | | | | + + + + + + + + + | Result panel 93 | + + + + + + + + + | | 2022-09-12 | [facility] | NEGATIVE | (missing) | (missing) | | (unavailable | 16:55:08 | [facility] | | | | + + + + + + + + + | Result panel 94 | + + + + + +---------+ + + | | 2022-09-12 | [facility] | 1.015 | (missing) | (missing) | | (unavailable | 16:55:08 | [facility] | | | | + + + +---------+ + + + + | Result panel 95 | + + + + + + + + + | | 2022-09-12 | [facility] | NEGATIVE | (missing) | (missing) | | (unavailable | 16:55:08 | [facility] | | | | + + + + + + + + + | Result panel 96 | + + + + + +-------+ + + | | 2022-09-12 | [facility] | 5.5 | (missing) | (missing) | | (unavailable | 16:55:08 | [facility] | | | | + + + +-------+ + + + + | Result panel 97 | + + + + + + + + + | | 2022-09-12 | [facility] | NEGATIVE | (missing) | (missing) | | (unavailable | 16:55:08 | [facility] | | | | + + + + + + + + + | Result panel 98 | + + + + + + + + + | | 2022-09-12 | [facility] | NORMAL | (missing) | (missing) | | (unavailable | 16:55:08 | [facility] | | | | + + + + + + + + + | Result panel 99 | + + + + + + + + + | | 2022-09-12 | [facility] | NEGATIVE | (missing) | (missing) | | (unavailable | 16:55:08 | [facility] | | | | + + + + + + + + + | Result panel 100 | + + + + + + + + + | | 2022-09-12 | [facility] | NEGATIVE | (missing) | (missing) | | (unavailable | 16:55:08 | [facility] | | | | + + + + + + + + + | Result panel 101 | + + + + + +------+---------+ + | | 2022-09-13 | [facility] | 98 | mg/dL | (missing) | | (unavailable | 05:16:08 | [facility] | | | | + + + +------+---------+ + + + | Result panel 102 | + + + + + +------+---------+ + | | 2022-09-13 | [facility] | 16 | mg/dL | (missing) | | (unavailable | 05:16:08 | [facility] | | | | + + + +------+---------+ + + + | Result panel 103 | + + + + + +--------+---------+ + | | 2022-09-13 | [facility] | 1.22 | mg/dL | (missing) | | (unavailable | 05:16:08 | [facility] | | | | + + + +--------+---------+ + + + | Result panel 104 | + + + + + +------+ + + | | 2022-09-13 | [facility] | 61 | (missing) | (missing) | | (unavailable | 05:16:08 | [facility] | | | | + + + +------+ + + + + | Result panel 105 | + + + + + +---------+ + + | | 2022-09-13 | [facility] | 13.11 | (missing) | (missing) | | (unavailable | 05:16:08 | [facility] | | | | + + + +---------+ + + + + | Result panel 106 | + + + + + +-------+ + + | | 2022-09-13 | [facility] | 140 | (missing) | (missing) | | (unavailable | 05:16:08 | [facility] | | | | + + + +-------+ + + + + | Result panel 107 | + + + + + +-------+ + + | | 2022-09-13 | [facility] | 3.9 | (missing) | (missing) | | (unavailable | 05:16:08 | [facility] | | | | + + + +-------+ + + + + | Result panel 108 | + + + + + +-------+ + + | | 2022-09-13 | [facility] | 104 | (missing) | (missing) | | (unavailable | 05:16:08 | [facility] | | | | + + + +-------+ + + + + | Result panel 109 | + + + + + +------+ + + | | 2022-09-13 | [facility] | 25 | (missing) | (missing) | | (unavailable | 05:16:08 | [facility] | | | | + + + +------+ + + + + | Result panel 110 | + + + + + +--------+ + + | | 2022-09-13 | [facility] | 14.9 | (missing) | (missing) | | (unavailable | 05:16:08 | [facility] | | | | + + + +--------+ + + + + | Result panel 111 | + + + + + +-------+---------+ + | | 2022-09-13 | [facility] | 8.6 | mg/dL | (missing) | | (unavailable | 05:16:08 | [facility] | | | | + + + +-------+---------+ + + + | Result panel 112 | + + + + + +-------+ + + | | 2022-09-13 | [facility] | 6.6 | (missing) | (missing) | | (unavailable | 05:16:08 | [facility] | | | | + + + +-------+ + + + + | Result panel 113 | + + + + + +------+ + + | | 2022-09-13 | [facility] | 87 | (missing) | (missing) | | (unavailable | 11:34:08 | [facility] | | | | + + + +------+ + + + + | Result panel 114 | + + + + + +-------+ + + | | 2022-09-14 | [facility] | 4.1 | (missing) | (missing) | | (unavailable | 05:05:08 | [facility] | | | | + + + +-------+ + + + + | Result panel 115 | + + + + + +--------+ + + | | 2022-09-14 | [facility] | 2.83 | (missing) | (missing) | | (unavailable | 05:05:08 | [facility] | | | | + + + +--------+ + + + + | Result panel 116 | + + + + + +-------+ + + | | 2022-09-14 | [facility] | 7.7 | (missing) | (missing) | | (unavailable | 05:05:08 | [facility] | | | | + + + +-------+ + + + + | Result panel 117 | + + + + + +--------+ + + | | 2022-09-14 | [facility] | 24.0 | (missing) | (missing) | | (unavailable | 05:05:08 | [facility] | | | | + + + +--------+ + + + + | Result panel 118 | + + + + + +--------+ + + | | 2022-09-14 | [facility] | 85.0 | (missing) | (missing) | | (unavailable | 05:05:08 | [facility] | | | | + + + +--------+ + + + + | Result panel 119 | + + + + + +--------+ + + | | 2022-09-14 | [facility] | 27.3 | (missing) | (missing) | | (unavailable | 05:05:08 | [facility] | | | | + + + +--------+ + + + + | Result panel 120 | + + + + + +--------+ + + | | 2022-09-14 | [facility] | 32.1 | (missing) | (missing) | | (unavailable | 05:05:08 | [facility] | | | | + + + +--------+ + + + + | Result panel 121 | + + + + + +--------+ + + | | 2022-09-14 | [facility] | 16.8 | (missing) | (missing) | | (unavailable | 05:05:08 | [facility] | | | | + + + +--------+ + + + + | Result panel 122 | + + + + + +-------+ + + | | 2022-09-14 | [facility] | 259 | (missing) | (missing) | | (unavailable | 05:05:08 | [facility] | | | | + + + +-------+ + + + + | Result panel 123 | + + + + + +--------+ + + | | 2022-09-14 | [facility] | 51.8 | (missing) | (missing) | | (unavailable | 05:05:08 | [facility] | | | | + + + +--------+ + + + + | Result panel 124 | + + + + + +--------+ + + | | 2022-09-14 | [facility] | 37.1 | (missing) | (missing) | | (unavailable | 05:05:08 | [facility] | | | | + + + +--------+ + + + + | Result panel 125 | + + + + + +-------+ + + | | 2022-09-14 | [facility] | 7.4 | (missing) | (missing) | | (unavailable | 05:05:08 | [facility] | | | | + + + +-------+ + + + + | Result panel 126 | + + + + + +-------+ + + | | 2022-09-14 | [facility] | 1.0 | (missing) | (missing) | | (unavailable | 05:05:08 | [facility] | | | | + + + +-------+ + + + + | Result panel 127 | + + + + + +-------+ + + | | 2022-09-14 | [facility] | 2.7 | (missing) | (missing) | | (unavailable | 05:05:08 | [facility] | | | | + + + +-------+ + + + + | Result panel 128 | + + + + + +-------+ + + | | 2022-11-24 | [facility] | 6.9 | (missing) | (missing) | | (unavailable | 12:52:08 | [facility] | | | | + + + +-------+ + + + + | Result panel 129 | + + + + + +-----+ + + | | 2022-11-24 | [facility] | O | (missing) | (missing) | | (unavailable | 13:00:08 | [facility] | | | | + + + +-----+ + + + + | Result panel 130 | + + + + + + + + + | | 2022-11-24 | [facility] | POSITIVE | (missing) | (missing) | | (unavailable | 13:00:08 | [facility] | | | | + + + + + + + + + | Result panel 131 | + + + + + + + + + | | 2022-11-24 | [facility] | NEGATIVE | (missing) | (missing) | | (unavailable | 13:00:08 | [facility] | | | | + + + + + + + + + | Result panel 132 | + + + + + + + + + | | 2022-11-24 | [facility] | COMPATIBLE | (missing) | (missing) | | (unavailable | 13:00:08 | [facility] | | | | + + + + + + + + + | Result panel 133 | + + + + + + + + + | | 2022-11-24 | [facility] | COMPATIBLE | (missing) | (missing) | | (unavailable | 13:00:08 | [facility] | | | | + + + + + + + + + | Result panel 134 | + + + + + + + + + | | 2022-11-24 | [facility] | BLOOD IN | (missing) | (missing) | | (unavailable | 13:00:08 | [facility] | | | | + + + + + + + + + | Result panel 135 | + + + + + + + + + | | 2022-11-24 | [facility] | POSITIVE | (missing) | (missing) | | (unavailable | 13:04:08 | [facility] | | | | + + + + + + + + + | Result panel 136 | + + + + + + + + + | | 2022-11-24 | [facility] | NEGATIVE | (missing) | (missing) | | (unavailable | 13:04:08 | [facility] | | | | + + + + + + + + + | Result panel 137 | + + + + + + + + + | | 2022-11-24 | [facility] | NEGATIVE | (missing) | (missing) | | (unavailable | 13:04:08 | [facility] | | | | + + + + + + + + + | Result panel 138 | + + + + + + + + + | | 2022-11-24 | [facility] | NEGATIVE | (missing) | (missing) | | (unavailable | 13:04:08 | [facility] | | | | + + + + + + + + + | Result panel 139 | + + + + + +-------+ + + | | 2022-11-24 | [facility] | 2.9 | (missing) | (missing) | | (unavailable | 15:25:08 | [facility] | | | | + + + +-------+ + + + + | Result panel 140 | + + + + + +------+---------+ + | | 2022-11-25 | [facility] | 97 | mg/dL | (missing) | | (unavailable | 05:37:08 | [facility] | | | | + + + +------+---------+ + + + | Result panel 141 | + + + + + +------+---------+ + | | 2022-11-25 | [facility] | 17 | mg/dL | (missing) | | (unavailable | 05:37:08 | [facility] | | | | + + + +------+---------+ + + + | Result panel 142 | + + + + + +--------+---------+ + | | 2022-11-25 | [facility] | 1.10 | mg/dL | (missing) | | (unavailable | 05:37:08 | [facility] | | | | + + + +--------+---------+ + + + | Result panel 143 | + + + + + +------+ + + | | 2022-11-25 | [facility] | 70 | (missing) | (missing) | | (unavailable | 05:37:08 | [facility] | | | | + + + +------+ + + + + | Result panel 144 | + + + + + +---------+ + + | | 2022-11-25 | [facility] | 15.45 | (missing) | (missing) | | (unavailable | 05:37:08 | [facility] | | | | + + + +---------+ + + + + | Result panel 145 | + + + + + +-------+ + + | | 2022-11-25 | [facility] | 136 | (missing) | (missing) | | (unavailable | 05:37:08 | [facility] | | | | + + + +-------+ + + + + | Result panel 146 | + + + + + +-------+ + + | | 2022-11-25 | [facility] | 3.4 | (missing) | (missing) | | (unavailable | 05:37:08 | [facility] | | | | + + + +-------+ + + + + | Result panel 147 | + + + + + +-------+ + + | | 2022-11-25 | [facility] | 102 | (missing) | (missing) | | (unavailable | 05:37:08 | [facility] | | | | + + + +-------+ + + + + | Result panel 148 | + + + + + +------+ + + | | 2022-11-25 | [facility] | 27 | (missing) | (missing) | | (unavailable | 05:37:08 | [facility] | | | | + + + +------+ + + + + | Result panel 149 | + + + + + +--------+ + + | | 2022-11-25 | [facility] | 10.4 | (missing) | (missing) | | (unavailable | 05:37:08 | [facility] | | | | + + + +--------+ + + + + | Result panel 150 | + + + + + +-------+---------+ + | | 2022-11-25 | [facility] | 8.8 | mg/dL | (missing) | | (unavailable | 05:37:08 | [facility] | | | | + + + +-------+---------+ + + + | Result panel 151 | + + + + + +-------+ + + | | 2022-11-25 | [facility] | 6.9 | (missing) | (missing) | | (unavailable | 05:37:08 | [facility] | | | | + + + +-------+ + + + + | Result panel 152 | + + + + + +-------+ + + | | 2022-11-25 | [facility] | 1.9 | (missing) | (missing) | | (unavailable | 05:37:08 | [facility] | | | | + + + +-------+ + + + + | Result panel 153 | + + + + + +-------+ + + | | 2022-11-25 | [facility] | 5.0 | (missing) | (missing) | | (unavailable | 05:37:08 | [facility] | | | | + + + +-------+ + + + + | Result panel 154 | + + + + + +--------+ + + | | 2022-11-25 | [facility] | 0.38 | (missing) | (missing) | | (unavailable | 05:37:08 | [facility] | | | | + + + +--------+ + + + + | Result panel 155 | + + + + + +-------+ + + | | 2022-11-25 | [facility] | 0.3 | (missing) | (missing) | | (unavailable | 05:37:08 | [facility] | | | | + + + +-------+ + + + + | Result panel 156 | + + + + + +------+ + + | | 2022-11-25 | [facility] | 88 | (missing) | (missing) | | (unavailable | 05:37:08 | [facility] | | | | + + + +------+ + + + + | Result panel 157 | + + + + + +------+ + + | | 2022-11-25 | [facility] | 86 | (missing) | (missing) | | (unavailable | 05:37:08 | [facility] | | | | + + + +------+ + + + + | Result panel 158 | + + + + + +------+ + + | | 2022-11-25 | [facility] | 93 | (missing) | (missing) | | (unavailable | 05:37:08 | [facility] | | | | + + + +------+ + + + + | Result panel 159 | + + + + + +--------+ + + | | 2022-11-25 | [facility] | 20.9 | (missing) | (missing) | | (unavailable | 06:30:08 | [facility] | | | | + + + +--------+ + + + + | Result panel 160 | + + + + + +--------+ + + | | 2022-11-25 | [facility] | 2.82 | (missing) | (missing) | | (unavailable | :30:08 | [facility] | | | | + + + +--------+ + + + + | Result panel 161 | + + + + + +-------+ + + | | 2022-11-25 | [facility] | 6.6 | (missing) | (missing) | | (unavailable | 06:30:08 | [facility] | | | | + + + +-------+ + + + + | Result panel 162 | + + + + + +--------+ + + | | 2022-11-25 | [facility] | 22.5 | (missing) | (missing) | | (unavailable | 06:30:08 | [facility] | | | | + + + +--------+ + + + + | Result panel 163 | + + + + + +--------+ + + | | 2022-11-25 | [facility] | 79.7 | (missing) | (missing) | | (unavailable | 06:30:08 | [facility] | | | | + + + +--------+ + + + + | Result panel 164 | + + + + + +--------+ + + | | 2022-11-25 | [facility] | 23.5 | (missing) | (missing) | | (unavailable | 06:30:08 | [facility] | | | | + + + +--------+ + + + + | Result panel 165 | + + + + + +--------+ + + | | 2022-11-25 | [facility] | 29.5 | (missing) | (missing) | | (unavailable | 06:30:08 | [facility] | | | | + + + +--------+ + + + + | Result panel 166 | + + + + + +--------+ + + | | 2022-11-25 | [facility] | 21.4 | (missing) | (missing) | | (unavailable | 06:30:08 | [facility] | | | | + + + +--------+ + + + + | Result panel 167 | + + + + + +-------+ + + | | 2022-11-25 | [facility] | 697 | (missing) | (missing) | | (unavailable | 06:30:08 | [facility] | | | | + + + +-------+ + + + + | Result panel 168 | + + + + + +------+ + + | | 2022-11-25 | [facility] | 81 | (missing) | (missing) | | (unavailable | 06:30:08 | [facility] | | | | + + + +------+ + + + + | Result panel 169 | + + + + + +------+ + + | | 2022-11-25 | [facility] | 12 | (missing) | (missing) | | (unavailable | 06:30:08 | [facility] | | | | + + + +------+ + + + + | Result panel 170 | + + + + + +-----+ + + | | 2022-11-25 | [facility] | 5 | (missing) | (missing) | | (unavailable | 06:30:08 | [facility] | | | | + + + +-----+ + + + + | Result panel 171 | + + + + + +-----+ + + | | 2022-11-25 | [facility] | 2 | (missing) | (missing) | | (unavailable | :30:08 | [facility] | | | | + + + +-----+ + + + + | Result panel 172 | + + + + + + + + + | | 2022-11-25 | [facility] | PRESENT | (missing) | (missing) | | (unavailable | :30:08 | [facility] | | | | + + + + + + + + + | Result panel 173 | + + + + + + + + + | | 2022-11-25 | [facility] | PRESENT | (missing) | (missing) | | (unavailable | 06:30:08 | [facility] | | | | + + + + + + + + + | Result panel 174 | + + + + + + + + + | | 2022-11-25 | [facility] | PRESENT | (missing) | (missing) | | (unavailable | 06:30:08 | [facility] | | [facility] | | | | + + + + + + + + + | Result panel 175 | + + + + + + + + + | | 2022-11-25 | [facility] | PRESENT | (missing) | (missing) | | (unavailable | 06:30:08 | [facility] | [facility] | | | | + + + + + + + + + | Result panel 176 | + + + + + + + + + | | 2022-11-25 | [facility] | PRESENT | (missing) | (missing) | | (unavailable | 06:30:08 | [facility] | [facility] | | | | + + + + + + + + + | Result panel 177 | + + + + + + + + + | | 2022-11-25 | [facility] | INCREASED | (missing) | (missing) | | (unavailable | 06:30:08 | [facility] | [facility] | | | | + + + + + + + + + | Result panel 178 | + + + + + +---------+ + + | | 2022-11-25 | [facility] | 7.358 | (missing) | (missing) | | (unavailable | 06:30:08 | [facility] | [facility] | | | | + + + +---------+ + + + + | Result panel 179 | + + + + + +-------+ + + | | 2022-11-25 | [facility] | 147 | (missing) | (missing) | | (unavailable | 12:13:08 | [facility] | [facility] | | | | + + + +-------+ + + + + | Result panel 180 | + + + + + + + + + | | 2023-02-02 | [facility] | BLOOD IN | (missing) | (missing) | | (unavailable | 19:30:07 | [facility] LAB | [facility] ) | | [facility] | | | | + + + + + + + + + | Result panel 181 | + + + + + + + + + | | 2023-02-02 | [facility] | COMPATIBLE | (missing) | (missing) | | (unavailable | 19:30:07 | [facility] | [facility] | | | | + + + + + + + + + | Result panel 182 | + + + + + + + + + | | 2023-02-02 | [facility] | COMPATIBLE | (missing) | (missing) | | (unavailable | 19:30:07 | [facility] | [facility] | | | | + + + + + + + + + | Result panel 183 | + + + + + +-----+ + + | | 2023-02-02 | [facility] | O | (missing) | (missing) | | (unavailable | 19:30:07 | [facility] | [facility] | | | | + + + +-----+ + + + + | Result panel 184 | + + + + + + + + + | | 2023-02-02 | [facility] | POSITIVE | (missing) | (missing) | | (unavailable | 19:30:07 | [facility] | [facility] | | | | + + + + + + + + + | Result panel 185 | + + + + + + + + + | | 2023-02-02 | [facility] | NEGATIVE | (missing) | (missing) | | (unavailable | 19:30:07 | [facility] | | [facility] | | | | + + + + + + + + + | Result panel 186 | + + + + + + + + + | | 2023-02-02 | [facility] | COMPATIBLE | (missing) | (missing) | | (unavailable | 19:30:07 | [facility] | | [facility] | | | | + + + + + + + + + | Result panel 187 | + + + + + + + + + | | 2023-02-02 | [facility] | COMPATIBLE | (missing) | (missing) | | (unavailable | 19:30:07 | [facility] | [facility] | | | | + + + + + + + + + | Result panel 188 | + + + + + +--------+ + + | | 2023-02-02 | [facility] | 13.7 | (missing) | (missing) | | (unavailable | 19:37:07 | [facility] | [facility] | | | | + + + +--------+ + + + + | Result panel 189 | + + + + + +--------+ + + | | 2023-02-02 | [facility] | 13.7 | (missing) | (missing) | | (unavailable | 19:37:07 | [facility] | [facility] | | | | + + + +--------+ + + + + | Result panel 190 | + + + + + +--------+ + + | | 2023-02-02 | [facility] | 1.09 | (missing) | (missing) | | (unavailable | 19:37:07 | [facility] | [facility] | | | | + + + +--------+ + + + + | Result panel 191 | + + + + + +--------+ + + | | 2023-02-02 | [facility] | 28.5 | (missing) | (missing) | | (unavailable | 19:37:07 | [facility] | [facility] | | | | + + + +--------+ + + + + | Result panel 192 | + + + + + +--------+ + + | | 2023-02-02 | [facility] | 1.09 | (missing) | (missing) | | (unavailable | 19:37:07 | [facility] | | [facility] | | | | + + + +--------+ + + + + | Result panel 193 | + + + + + +--------+ + + | | 2023-02-02 | [facility] | 28.5 | (missing) | (missing) | | (unavailable | 19:37:07 | [facility] | | | | | ) | | [facility] | | | | + + + +--------+ + + + + | Result panel 194 | + + + + + + + + + | | 2023-02-02 | [facility] | NEGATIVE | (missing) | (missing) | | (unavailable | 20:11:07 | [facility] | | | | + + + + + + + + + | Result panel 195 | + + + + + + + + + | | 2023-02-02 | [facility] | NEGATIVE | (missing) | (missing) | | (unavailable | 20:11:07 | [facility] | | | | + + + + + + + + + | Result panel 196 | + + + + + + + + + | | 2023-02-03 | [facility] | YELLOW | (missing) | (missing) | | (unavailable | 00:05:07 | [facility] | | | | + + + + + + + + + | Result panel 197 | + + + + + +---------+ + + | | 2023-02-03 | [facility] | CLEAR | (missing) | (missing) | | (unavailable | 00:05:07 | [facility] | | | | + + + +---------+ + + + + | Result panel 198 | + + + + + + + + + | | 2023-02-03 | [facility] | NEGATIVE | (missing) | (missing) | | (unavailable | 00:05:07 | [facility] | | | | + + + + + + + + + | Result panel 199 | + + + + + + + + + | | 2023-02-03 | [facility] | NEGATIVE | (missing) | (missing) | | (unavailable | 00:05:07 | [facility] | | | | + + + + + + + + + | Result panel 200 | + + + + + + + + + | | 2023-02-03 | [facility] | NEGATIVE | (missing) | (missing) | | (unavailable | 00:05:07 | [facility] | | | | + + + + + + + + + | Result panel 201 | + + + + + +---------+ + + | | 2023-02-03 | [facility] | 1.015 | (missing) | (missing) | | (unavailable | 00:05:07 | [facility] | | | | + + + +---------+ + + + + | Result panel 202 | + + + + + + + + + | | 2023-02-03 | [facility] | NEGATIVE | (missing) | (missing) | | (unavailable | 00:05:07 | [facility] | | | | + + + + + + + + + | Result panel 203 | + + + + + +-------+ + + | | 2023-02-03 | [facility] | 5.5 | (missing) | (missing) | | (unavailable | 00:05:07 | [facility] | | | | + + + +-------+ + + + + | Result panel 204 | + + + + + + + + + | | 2023-02-03 | [facility] | NEGATIVE | (missing) | (missing) | | (unavailable | 00:05:07 | [facility] | | | | + + + + + + + + + | Result panel 205 | + + + + + + + + + | | 2023-02-03 | [facility] | NORMAL | (missing) | (missing) | | (unavailable | 00:05:07 | [facility] | | | | + + + + + + + + + | Result panel 206 | + + + + + + + + + | | 2023-02-03 | [facility] | NEGATIVE | (missing) | (missing) | | (unavailable | 00:05:07 | [facility] | | | | + + + + + + + + + | Result panel 207 | + + + + + + + + + | | 2023-02-03 | [facility] | NEGATIVE | (missing) | (missing) | | (unavailable | 00:05:07 | [facility] | | | | + + + + + + + + + | Result panel 208 | + + + + + +-------+---------+ + | | 2023-02-03 | [facility] | 3.2 | mg/dL | (missing) | | (unavailable | 06:04:07 | [facility] | | | | + + + +-------+---------+ + + + | Result panel 209 | + + + + + +-------+---------+ + | | 2023-02-03 | [facility] | 1.7 | mg/dL | (missing) | | (unavailable | 06:04:07 | [facility] | | | | + + + +-------+---------+ + + + | Result panel 210 | + + + + + +------+---------+ + | | 2023-02-03 | [facility] | 94 | mg/dL | (missing) | | (unavailable | 06:04:07 | [facility] | | | | + + + +------+---------+ + + + | Result panel 211 | + + + + + +------+---------+ + | | 2023-02-03 | [facility] | 39 | mg/dL | (missing) | | (unavailable | 06:04:07 | [facility] | | | | + + + +------+---------+ + + + | Result panel 212 | + + + + + +--------+---------+ + | | 2023-02-03 | [facility] | 0.92 | mg/dL | (missing) | | (unavailable | 06:04:07 | [facility] | | | | + + + +--------+---------+ + + + | Result panel 213 | + + + + + +------+ + + | | 2023-02-03 | [facility] | 86 | (missing) | (missing) | | (unavailable | 06:04:07 | [facility] | | | | + + + +------+ + + + + | Result panel 214 | + + + + + +---------+ + + | | 2023-02-03 | [facility] | 42.39 | (missing) | (missing) | | (unavailable | 06:04:07 | [facility] | | | | + + + +---------+ + + + + | Result panel 215 | + + + + + +-------+ + + | | 2023-02-03 | [facility] | 135 | (missing) | (missing) | | (unavailable | 06:04:07 | [facility] | | | | + + + +-------+ + + + + | Result panel 216 | + + + + + +-------+ + + | | 2023-02-03 | [facility] | 4.2 | (missing) | (missing) | | (unavailable | 06:04:07 | [facility] | | | | + + + +-------+ + + + + | Result panel 217 | + + + + + +-------+ + + | | 2023-02-03 | [facility] | 101 | (missing) | (missing) | | (unavailable | 06:04:07 | [facility] | | | | + + + +-------+ + + + + | Result panel 218 | + + + + + +------+ + + | | 2023-02-03 | [facility] | 25 | (missing) | (missing) | | (unavailable | 06:04:07 | [facility] | | | | + + + +------+ + + + + | Result panel 219 | + + + + + +--------+ + + | | 2023-02-03 | [facility] | 13.2 | (missing) | (missing) | | (unavailable | 06:04:07 | [facility] | | | | + + + +--------+ + + + + | Result panel 220 | + + + + + +-------+---------+ + | | 2023-02-03 | [facility] | 8.9 | mg/dL | (missing) | | (unavailable | 06:04:07 | [facility] | | | | + + + +-------+---------+ + + + | Result panel 221 | + + + + + +-------+---------+ + | | 2023-02-03 | [facility] | 3.2 | mg/dL | (missing) | | (unavailable | :07 | [facility] | | | | + + + +-------+---------+ + + + | Result panel 222 | + + + + + +-------+---------+ + | | 2023-02-03 | [facility] | 1.7 | mg/dL | (missing) | | (unavailable | :04:07 | [facility] | | | | + + + +-------+---------+ + + + | Result panel 223 | + + + + + +-------+ + + | | 2023-02-03 | [facility] | 7.4 | (missing) | (missing) | | (unavailable | ::07 | [facility] | | | | + + + +-------+ + + + + | Result panel 224 | + + + + + +-------+ + + | | 2023-02-03 | [facility] | 3.0 | (missing) | (missing) | | (unavailable | ::07 | [facility] | | | | + + + +-------+ + + + + | Result panel 225 | + + + + + +-------+ + + | | 2023-02-03 | [facility] | 4.4 | (missing) | (missing) | | (unavailable | 06:04:07 | [facility] | | | | + + + +-------+ + + + + | Result panel 226 | + + + + + +--------+ + + | | 2023-02-03 | [facility] | 0.68 | (missing) | (missing) | | (unavailable | 06:04:07 | [facility] | | | | + + + +--------+ + + + + | Result panel 227 | + + + + + +-------+ + + | | 2023-02-03 | [facility] | 0.6 | (missing) | (missing) | | (unavailable | 06:04:07 | [facility] | | | | + + + +-------+ + + + + | Result panel 228 | + + + + + +------+ + + | | 2023-02-03 | [facility] | 24 | (missing) | (missing) | | (unavailable | 06:04:07 | [facility] | | | | + + + +------+ + + + + | Result panel 229 | + + + + + +------+ + + | | 2023-02-03 | [facility] | 35 | (missing) | (missing) | | (unavailable | 06:04:07 | [facility] | | | | + + + +------+ + + + + | Result panel 230 | + + + + + +------+ + + | | 2023-02-03 | [facility] | 80 | (missing) | (missing) | | (unavailable | 06:04:07 | [facility] | | | | + + + +------+ + + + + | Result panel 231 | + + + + + + + + + | | 2023-02-03 | [facility] | NEGATIVE | (missing) | (missing) | | (unavailable | 10:00:07 | [facility] | | | | + + + + + + + + + | Result panel 232 | + + + + + + + + + | | 2023-02-03 | [facility] | NEGATIVE | (missing) | (missing) | | (unavailable | 10:00:07 | [facility] | | | | + + + + + + + + + | Result panel 233 | + + + + + +-------+ + + | | 2023-02-04 | [facility] | 8.0 | (missing) | (missing) | | (unavailable | 04:40:07 | [facility] | | | | + + + +-------+ + + + + | Result panel 234 | + + + + + +--------+ + + | | 2023-02-04 | [facility] | 3.40 | (missing) | (missing) | | (unavailable | 04:40:07 | [facility] | | | | + + + +--------+ + + + + | Result panel 235 | + + + + + +-------+ + + | | 2023-02-04 | [facility] | 9.7 | (missing) | (missing) | | (unavailable | 04:40:07 | [facility] | | | | + + + +-------+ + + + + | Result panel 236 | + + + + + +--------+ + + | | 2023-02-04 | [facility] | 29.3 | (missing) | (missing) | | (unavailable | 04:40:07 | [facility] | | | | + + + +--------+ + + + + | Result panel 237 | + + + + + +--------+ + + | | 2023-02-04 | [facility] | 86.1 | (missing) | (missing) | | (unavailable | 04:40:07 | [facility] | | | | + + + +--------+ + + + + | Result panel 238 | + + + + + +--------+ + + | | 2023-02-04 | [facility] | 28.5 | (missing) | (missing) | | (unavailable | 04:40:07 | [facility] | | | | + + + +--------+ + + + + | Result panel 239 | + + + + + +--------+ + + | | 2023-02-04 | [facility] | 33.2 | (missing) | (missing) | | (unavailable | 04:40:07 | [facility] | | | | + + + +--------+ + + + + | Result panel 240 | + + + + + +--------+ + + | | 2023-02-04 | [facility] | 17.1 | (missing) | (missing) | | (unavailable | 04:40:07 | [facility] | | | | + + + +--------+ + + + + | Result panel 241 | + + + + + +-------+ + + | | 2023-02-04 | [facility] | 321 | (missing) | (missing) | | (unavailable | 04:40:07 | [facility] | | | | + + + +-------+ + + + + | Result panel 242 | + + + + + +--------+ + + | | 2023-02-04 | [facility] | 56.1 | (missing) | (missing) | | (unavailable | 04:40:07 | [facility] | | | | + + + +--------+ + + + + | Result panel 243 | + + + + + +--------+ + + | | 2023-02-04 | [facility] | 33.6 | (missing) | (missing) | | (unavailable | 04:40:07 | [facility] | | | | + + + +--------+ + + + + | Result panel 244 | + + + + + +-------+ + + | | 2023-02-04 | [facility] | 5.6 | (missing) | (missing) | | (unavailable | 04:40:07 | [facility] | | | | + + + +-------+ + + + + | Result panel 245 | + + + + + +-------+ + + | | 2023-02-04 | [facility] | 4.3 | (missing) | (missing) | | (unavailable | 04:40:07 | [facility] | | | | + + + +-------+ + + + + | Result panel 246 | + + + + + +-------+ + + | | 2023-02-04 | [facility] | 0.4 | (missing) | (missing) | | (unavailable | 04:40:07 | [facility] | | | | + + + +-------+ + + + + | Result panel 247 | + + + + + +-------+ + + | | 2023-02-04 | [facility] | 108 | (missing) | (missing) | | (unavailable | 07:42:07 | [facility] | | | | + + + +-------+ + + + + | Result panel 248 | + + + + + +-------+ + + | | 2023-02-04 | [facility] | 108 | (missing) | (missing) | | (unavailable | 07:42:07 | [facility] | | | | + + + +-------+ + + + + | Result panel 249 | + + + + + +-------+ + + | | 2023-02-05 | [facility] | 4.4 | (missing) | (missing) | | (unavailable | 12:50:07 | [facility] | | | | + + + +-------+ + + + + | Result panel 250 | + + + + + +--------+ + + | | 2023-02-05 | [facility] | 0.70 | (missing) | (missing) | | (unavailable | 12:50:07 | [facility] | | | | + + + +--------+ + + + + | Result panel 251 | + + + + + +-------+ + + | | 2023-02-05 | [facility] | 0.3 | (missing) | (missing) | | (unavailable | 12:50:07 | [facility] | | | | + + + +-------+ + + + + | Result panel 252 | + + + + + +------+ + + | | 2023-02-05 | [facility] | 32 | (missing) | (missing) | | (unavailable | 12:50:07 | [facility] | | | | + + + +------+ + + + + | Result panel 253 | + + + + + +------+ + + | | 2023-02-05 | [facility] | 53 | (missing) | (missing) | | (unavailable | 12:50:07 | [facility] | | | | + + + +------+ + + + + | Result panel 254 | + + + + + +------+ + + | | 2023-02-05 | [facility] | 80 | (missing) | (missing) | | (unavailable | 12:50:07 | [facility] | | | | + + + +------+ + + + + | Result panel 255 | + + + + + +-----+ + + | | 2023-02-05 | [facility] | O | (missing) | (missing) | | (unavailable | 12:50:07 | [facility] | | | | + + + +-----+ + + + + | Result panel 256 | + + + + + + + + + | | 2023-02-05 | [facility] | POSITIVE | (missing) | (missing) | | (unavailable | 12:50:07 | [facility] | | | | + + + + + + + + + | Result panel 257 | + + + + + + + + + | | 2023-02-05 | [facility] | NEGATIVE | (missing) | (missing) | | (unavailable | 12:50:07 | [facility] | | | | + + + + + + + + + | Result panel 258 | + + + + + + + + + | | 2023-02-05 | [facility] | BLOOD IN | (missing) | (missing) | | (unavailable | 12:50:07 | [facility] | | | | + + + + + + + + + | Result panel 259 | + + + + + +--------+ + + | | 2023-02-05 | [facility] | 17.1 | (missing) | (missing) | | (unavailable | 12:50:07 | [facility] | | | | + + + +--------+ + + + + | Result panel 260 | + + + + + +--------+ + + | | 2023-02-05 | [facility] | 3.20 | (missing) | (missing) | | (unavailable | 12:50:07 | [facility] | | | | + + + +--------+ + + + + | Result panel 261 | + + + + + +-------+ + + | | 2023-02-05 | [facility] | 9.0 | (missing) | (missing) | | (unavailable | 12:50:07 | [facility] | | | | + + + +-------+ + + + + | Result panel 262 | + + + + + +--------+ + + | | 2023-02-05 | [facility] | 28.1 | (missing) | (missing) | | (unavailable | 12:50:07 | [facility] | | | | + + + +--------+ + + + + | Result panel 263 | + + + + + +--------+ + + | | 2023-02-05 | [facility] | 87.9 | (missing) | (missing) | | (unavailable | 12:50:07 | [facility] | | | | + + + +--------+ + + + + | Result panel 264 | + + + + + +--------+ + + | | 2023-02-05 | [facility] | 28.2 | (missing) | (missing) | | (unavailable | 12:50:07 | [facility] | | | | + + + +--------+ + + + + | Result panel 265 | + + + + + +--------+ + + | | 2023-02-05 | [facility] | 32.1 | (missing) | (missing) | | (unavailable | 12:50:07 | [facility] | | | | + + + +--------+ + + + + | Result panel 266 | + + + + + +--------+ + + | | 2023-02-05 | [facility] | 16.8 | (missing) | (missing) | | (unavailable | 12:50:07 | [facility] | | | | + + + +--------+ + + + + | Result panel 267 | + + + + + +-------+ + + | | 2023-02-05 | [facility] | 439 | (missing) | (missing) | | (unavailable | 12:50:07 | [facility] | | | | + + + +-------+ + + + + | Result panel 268 | + + + + + +--------+ + + | | 2023-02-05 | [facility] | 83.7 | (missing) | (missing) | | (unavailable | 12:50:07 | [facility] | | | | + + + +--------+ + + + + | Result panel 269 | + + + + + +--------+ + + | | 2023-02-05 | [facility] | 12.6 | (missing) | (missing) | | (unavailable | 12:50:07 | [facility] | | | | + + + +--------+ + + + + | Result panel 270 | + + + + + +-------+ + + | | 2023-02-05 | [facility] | 3.2 | (missing) | (missing) | | (unavailable | 12:50:07 | [facility] | | | | + + + +-------+ + + + + | Result panel 271 | + + + + + +-------+ + + | | 2023-02-05 | [facility] | 0.1 | (missing) | (missing) | | (unavailable | 12:50:07 | [facility] | | | | + + + +-------+ + + + + | Result panel 272 | + + + + + +-------+ + + | | 2023-02-05 | [facility] | 0.4 | (missing) | (missing) | | (unavailable | 12:50:07 | [facility] | | | | + + + +-------+ + + + + | Result panel 273 | + + + + + +-------+---------+ + | | 2023-02-05 | [facility] | 137 | mg/dL | (missing) | | (unavailable | 12:50:07 | [facility] | | | | + + + +-------+---------+ + + + | Result panel 274 | + + + + + +------+---------+ + | | 2023-02-05 | [facility] | 45 | mg/dL | (missing) | | (unavailable | 12:50:07 | [facility] | | | | + + + +------+---------+ + + + | Result panel 275 | + + + + + +--------+---------+ + | | 2023-02-05 | [facility] | 1.07 | mg/dL | (missing) | | (unavailable | 12:50:07 | [facility] | | | | + + + +--------+---------+ + + + | Result panel 276 | + + + + + +------+ + + | | 2023-02-05 | [facility] | 72 | (missing) | (missing) | | (unavailable | 12:50:07 | [facility] | | | | + + + +------+ + + + + | Result panel 277 | + + + + + +---------+ + + | | 2023-02-05 | [facility] | 42.05 | (missing) | (missing) | | (unavailable | 12:50:07 | [facility] | | | | + + + +---------+ + + + + | Result panel 278 | + + + + + +-------+ + + | | 2023-02-05 | [facility] | 138 | (missing) | (missing) | | (unavailable | 12:50:07 | [facility] | | | | + + + +-------+ + + + + | Result panel 279 | + + + + + +-------+ + + | | 2023-02-05 | [facility] | 4.1 | (missing) | (missing) | | (unavailable | 12:50:07 | [facility] | | | | + + + +-------+ + + + + | Result panel 280 | + + + + + +-------+ + + | | 2023-02-05 | [facility] | 102 | (missing) | (missing) | | (unavailable | 12:50:07 | [facility] | | | | + + + +-------+ + + + + | Result panel 281 | + + + + + +------+ + + | | 2023-02-05 | [facility] | 26 | (missing) | (missing) | | (unavailable | 12:50:07 | [facility] | | | | + + + +------+ + + + + | Result panel 282 | + + + + + +--------+ + + | | 2023-02-05 | [facility] | 14.1 | (missing) | (missing) | | (unavailable | 12:50:07 | [facility] | | | | + + + +--------+ + + + + | Result panel 283 | + + + + + +-------+---------+ + | | 2023-02-05 | [facility] | 9.0 | mg/dL | (missing) | | (unavailable | 12:50:07 | [facility] | | | | + + + +-------+---------+ + + + | Result panel 284 | + + + + + +-------+ + + | | 2023-02-05 | [facility] | 7.5 | (missing) | (missing) | | (unavailable | 12:50:07 | [facility] | | | | + + + +-------+ + + + + | Result panel 285 | + + + + + +-------+ + + | | 2023-02-05 | [facility] | 3.1 | (missing) | (missing) | | (unavailable | 12:50:07 | [facility] | | | | + + + +-------+ + + + + | Result panel 286 | + + + + + +-------+ + + | | 2023-02-05 | [facility] | 1.9 | (missing) | (missing) | | (unavailable | 17:20:07 | [facility] | | | | + + + +-------+ + + + + | Result panel 287 | + + + + + + + + + | | 2023-02-05 | [facility] | NEGATIVE | (missing) | (missing) | | (unavailable | 17:30:07 | [facility] | | | | + + + + + + + + + | Result panel 288 | + + + + + + + + + | | 2023-02-05 | [facility] | NEGATIVE | (missing) | (missing) | | (unavailable | 17:30:07 | [facility] | | | | + + + + + + + + + | Result panel 289 | + + + + + + + + + | | 2023-02-05 | [facility] | NEGATIVE | (missing) | (missing) | | (unavailable | 17:30:07 | [facility] | | | | + + + + + + + + + | Result panel 290 | + + + + + + + + + | | 2023-02-05 | [facility] | NEGATIVE | (missing) | (missing) | | (unavailable | 17:30:07 | [facility] | | | | + + + + + + + + + | Result panel 291 | + + + + + + + + + | | 2023-02-05 | [facility] | YELLOW | (missing) | (missing) | | (unavailable | 21:24:07 | [facility] | | | | + + + + + + + + + | Result panel 292 | + + + + + +---------+ + + | | 2023-02-05 | [facility] | CLEAR | (missing) | (missing) | | (unavailable | 21:24:07 | [facility] | | | | + + + +---------+ + + + + | Result panel 293 | + + + + + + + + + | | 2023-02-05 | [facility] | NEGATIVE | (missing) | (missing) | | (unavailable | 21:24:07 | [facility] | | | | + + + + + + + + + | Result panel 294 | + + + + + + + + + | | 2023-02-05 | [facility] | NEGATIVE | (missing) | (missing) | | (unavailable | 21:24:07 | [facility] | | | | + + + + + + + + + | Result panel 295 | + + + + + + + + + | | 2023-02-05 | [facility] | NEGATIVE | (missing) | (missing) | | (unavailable | 21:24:07 | [facility] | | | | + + + + + + + + + | Result panel 296 | + + + + + + + + + | | 2023-02-05 | [facility] | <=1.005 | (missing) | (missing) | | (unavailable | 21:24:07 | [facility] | | | | + + + + + + + + + | Result panel 297 | + + + + + + + + + | | 2023-02-05 | [facility] | NEGATIVE | (missing) | (missing) | | (unavailable | 21:24:07 | [facility] | | | | + + + + + + + + + | Result panel 298 | + + + + + +-------+ + + | | 2023-02-05 | [facility] | 6.0 | (missing) | (missing) | | (unavailable | ::07 | [facility] | | | | + + + +-------+ + + + + | Result panel 299 | + + + + + + + + + | | 2023-02-05 | [facility] | NEGATIVE | (missing) | (missing) | | (unavailable | ::07 | [facility] | | | | + + + + + + + + + | Result panel 300 | + + + + + + + + + | | 2023-02-05 | [facility] | NORMAL | (missing) | (missing) | | (unavailable | ::07 | [facility] | | | | + + + + + + + + + | Result panel 301 | + + + + + + + + + | | 2023-02-05 | [facility] | NEGATIVE | (missing) | (missing) | | (unavailable | :07 | [facility] | | | | + + + + + + + + + | Result panel 302 | + + + + + + + + + | | 2023-02-05 | [facility] | NEGATIVE | (missing) | (missing) | | (unavailable | 21:24:07 | [facility] | | | | + + + + + + + Social History No information. Vital Signs + + + +---------+ | date | measurement | value | units | + + + +---------+ | 2022-02-07 00:00 | BMI | 24.4 | kg/m2 | + + + +---------+ | 2022-02-07 00:00 | height_metric | 175.26 | cm | + + + +---------+ | 2022-02-07 00:00 | height_standard | 69 | in | + + + +---------+ | 2022-02-07 00:00 | weight_metric | 75 | kg | + + + +---------+ | 2022-02-07 00:00 | weight_standard | 165.35 | lb | + + + +---------+ | 2022-02-09 00:00 | BP_diastolic | 68 | mmHg | + + + +---------+ | 2022-02-09 00:00 | BP_systolic | 124 | mmHg | + + + +---------+ | 2022-02-09 00:00 | heart_rate | 70 | /min | + + + +---------+ | 2022-02-09 00:00 | o2_saturation | 97 | % | + + + +---------+ | 2022-02-09 00:00 | respiration_rate | 16 | /min | + + + +---------+ | 2022-02-09 00:00 | temperature_metric | 36.39 | C | | | | | | + + + +---------+ | 2022-02-09 00:00 | | 97.5 | F | | | temperature_standar | | | | | d | | | + + + +---------+ | 2022-06-05 00:00 | BMI | 25.1 | kg/m2 | + + + +---------+ | 2022-06-05 00:00 | height_metric | 175.26 | cm | + + + +---------+ | 2022-06-05 00:00 | height_standard | 69 | in | + + + +---------+ | 2022-06-05 00:00 | weight_metric | 77.11 | kg | + + + +---------+ | 2022-06-05 00:00 | weight_standard | 170 | lb | + + + +---------+ | 2022-06-06 00:00 | BP_diastolic | 70 | mmHg | + + + +---------+ | 2022-06-06 00:00 | BP_systolic | 134 | mmHg | + + + +---------+ | 2022-06-06 00:00 | heart_rate | 95 | /min | + + + +---------+ | 2022-06-06 00:00 | o2_saturation | 98 | % | + + + +---------+ | 2022-06-06 00:00 | respiration_rate | 17 | /min | + + + +---------+ | 2022-06-06 00:00 | temperature_metric | 36.39 | C | | | | | | + + + +---------+ | 2022-06-06 00:00 | | 97.5 | F | | | temperature_standar | | | | | d | | | + + + +---------+ | 2022-09-12 00:00 | BMI | 21.6 | kg/m2 | + + + +---------+ | 2022-09-12 00:00 | height_metric | 175.26 | cm | + + + +---------+ | 2022-09-12 00:00 | height_standard | 69 | in | + + + +---------+ | 2022-09-12 00:00 | weight_metric | 66.2 | kg | + + + +---------+ | 2022-09-12 00:00 | weight_standard | 145.95 | lb | + + + +---------+ | 2022-09-15 00:00 | BP_diastolic | 74 | mmHg | + + + +---------+ | 2022-09-15 00:00 | BP_systolic | 146 | mmHg | + + + +---------+ | 2022-09-15 00:00 | heart_rate | 79 | /min | + + + +---------+ | 2022-09-15 00:00 | o2_saturation | 97 | % | + + + +---------+ | 2022-09-15 00:00 | respiration_rate | 16 | /min | + + + +---------+ | 2022-09-15 00:00 | temperature_metric | 36.67 | C | | | | | | + + + +---------+ | 2022-09-15 00:00 | | 98 | F | | | temperature_standar | | | | | d | | | + + + +---------+ | 2022-10-22 00:00 | BMI | 23.6 | kg/m2 | + + + +---------+ | 2022-10-22 00:00 | BP_diastolic | 84 | mmHg | + + + +---------+ | 2022-10-22 00:00 | BP_systolic | 157 | mmHg | + + + +---------+ | 2022-10-22 00:00 | heart_rate | 101 | /min | + + + +---------+ | 2022-10-22 00:00 | height_metric | 175.26 | cm | + + + +---------+ | 2022-10-22 00:00 | height_standard | 69 | in | + + + +---------+ | 2022-10-22 00:00 | o2_saturation | 95 | % | + + + +---------+ | 2022-10-22 00:00 | respiration_rate | 16 | /min | + + + +---------+ | 2022-10-22 00:00 | temperature_metric | 36.67 | C | | | | | | + + + +---------+ | 2022-10-22 00:00 | | 98 | F | | | temperature_standar | | | | | d | | | + + + +---------+ | 2022-10-22 00:00 | weight_metric | 72.57 | kg | + + + +---------+ | 2022-10-22 00:00 | weight_standard | 159.99 | lb | + + + +---------+ | 2022-10-22 00:00 | weight_standard | 160 | lb | + + + +---------+ | 2022-11-24 00:00 | BMI | 22.5 | kg/m2 | + + + +---------+ | 2022-11-24 00:00 | height_metric | 175.26 | cm | + + + +---------+ | 2022-11-24 00:00 | height_standard | 69 | in | + + + +---------+ | 2022-11-24 00:00 | weight_metric | 69.2 | kg | + + + +---------+ | 2022-11-24 00:00 | weight_standard | 152.56 | lb | + + + +---------+ | 2022-11-25 00:00 | BP_diastolic | 68 | mmHg | + + + +---------+ | 2022-11-25 00:00 | BP_systolic | 136 | mmHg | + + + +---------+ | 2022-11-25 00:00 | heart_rate | 89 | /min | + + + +---------+ | 2022-11-25 00:00 | o2_saturation | 97 | % | + + + +---------+ | 2022-11-25 00:00 | respiration_rate | 18 | /min | + + + +---------+ | 2022-11-25 00:00 | temperature_metric | 37.72 | C | | | | | | + + + +---------+ | 2022-11-25 00:00 | | 99.9 | F | | | temperature_standar | | | | | d | | | + + + +---------+ | 2023-02-02 00:00 | BMI | 20.3 | kg/m2 | + + + +---------+ | 2023-02-02 00:00 | height_metric | 175.26 | cm | + + + +---------+ | 2023-02-02 00:00 | height_standard | 69 | in | + + + +---------+ | 2023-02-02 00:00 | weight_metric | 62.4 | kg | + + + +---------+ | 2023-02-02 00:00 | weight_standard | 137.57 | lb | + + + +---------+ | 2023-02-04 00:00 | BP_diastolic | 71 | mmHg | + + + +---------+ | 2023-02-04 00:00 | BP_systolic | 149 | mmHg | + + + +---------+ | 2023-02-04 00:00 | heart_rate | 101 | /min | + + + +---------+ | 2023-02-04 00:00 | o2_saturation | 99 | % | + + + +---------+ | 2023-02-04 00:00 | respiration_rate | 17 | /min | + + + +---------+ | 2023-02-04 00:00 | temperature_metric | 36.33 | C | | | | | | + + + +---------+ | 2023-02-04 00:00 | | 97.4 | F | | | temperature_standar | | | | | d | | | + + + +---------+ | 2023-02-05 00:00 | BMI | 20.3 | kg/m2 | + + + +---------+ | 2023-02-05 00:00 | BP_diastolic | 83 | mmHg | + + + +---------+ | 2023-02-05 00:00 | BP_systolic | 153 | mmHg | + + + +---------+ | 2023-02-05 00:00 | heart_rate | 113 | /min | + + + +---------+ | 2023-02-05 00:00 | height_metric | 175.26 | cm | + + + +---------+ | 2023-02-05 00:00 | height_standard | 69 | in | + + + +---------+ | 2023-02-05 00:00 | o2_saturation | 98 | % | + + + +---------+ | 2023-02-05 00:00 | respiration_rate | 20 | /min | + + + +---------+ | 2023-02-05 00:00 | temperature_metric | 36.89 | C | | | | | | + + + +---------+ | 2023-02-05 00:00 | | 98.4 | F | | | temperature_standar | | | | | d | | | + + + +---------+ | 2023-02-05 00:00 | weight_metric | 62.37 | kg | + + + +---------+ | 2023-02-05 00:00 | weight_standard | 137.5 | lb | + + + +---------+"
--- OUTSIDE RECORDS SUMMARY | ~2023-05-02 | XMS | Continuity of Care Document ---
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 Functional Status No information. Immunizations No information. Medications + + + + | date | description | facility | + + + + | 2022-06-09 00:00 | METHOTREXATE SODIUM | [facility] | + + + + | 2022-09-15 00:00 | METHOTREXATE SODIUM | [facility] | + + + + | 2022-10-22 00:00 | METHOTREXATE SODIUM | [facility] | + + + + | 2022-11-25 00:00 | METHOTREXATE SODIUM | [facility] | + + + + | 2023-02-04 00:00 | METHOTREXATE SODIUM | [facility] | + + + + | 2023-02-05 00:00 | METHOTREXATE SODIUM | [facility] | + + + + | 2022-06-09 00:00 | DIPHENHYDRAMINE HCL | [facility] | + + + + | 2022-09-15 00:00 | DIPHENHYDRAMINE HCL | [facility] | + + + + | 2022-10-22 00:00 | DIPHENHYDRAMINE HCL | [facility] | + + + + | 2022-11-25 00:00 | DIPHENHYDRAMINE HCL | [facility] | + + + + | 2023-02-04 00:00 | DIPHENHYDRAMINE HCL | [facility] | + + + + | 2023-02-05 00:00 | DIPHENHYDRAMINE HCL | [facility] | + + + + | 2022-06-09 00:00 | | [facility] | | | CHLORPHENIR/PHENYLEPH/ASPIR | | | | [place] | | + + + + | 2022-09-15 00:00 | | [facility] | | | CHLORPHENIR/PHENYLEPH/ASPIR | | | | [place] | | + + + + | 2022-10-22 00:00 | | [facility] | | | CHLORPHENIR/PHENYLEPH/ASPIR | | | | [place] | | + + + + | 2022-11-25 00:00 | | [facility] | | | CHLORPHENIR/PHENYLEPH/ASPIR | | | | [place] | | + + + + | 2023-02-04 00:00 | | [facility] | | | CHLORPHENIR/PHENYLEPH/ASPIR | | | | [place] | | + + + + | 2023-02-05 00:00 | | [facility] | | | CHLORPHENIR/PHENYLEPH/ASPIR | | | | [place] | | + + + + | 2022-06-09 00:00 | POTASSIUM CHLORIDE | [facility] | + + + + | 2022-09-15 00:00 | POTASSIUM CHLORIDE | [facility] | + + + + | 2022-10-22 00:00 | POTASSIUM CHLORIDE | [facility] | + + + + | 2022-11-25 00:00 | POTASSIUM CHLORIDE | [facility] | + + + + | 2023-02-04 00:00 | POTASSIUM CHLORIDE | [facility] | + + + + | 2023-02-05 00:00 | POTASSIUM CHLORIDE | [facility] | + + + + | 2022-09-15 00:00 | OMEPRAZOLE | [facility] | + + + + | 2022-06-06 00:00 | CEFDINIR | [facility] | + + + + | 2019-11-28 00:00 | ATORVASTATIN CALCIUM | [facility] | + + + + | 2022-06-09 00:00 | ATORVASTATIN CALCIUM | [facility] | + + + + | 2022-09-15 00:00 | ATORVASTATIN CALCIUM | [facility] | + + + + | 2022-10-22 00:00 | ATORVASTATIN CALCIUM | [facility] | + + + + | 2022-11-25 00:00 | ATORVASTATIN CALCIUM | [facility] | + + + + | 2023-02-04 00:00 | ATORVASTATIN CALCIUM | [facility] | + + + + | 2023-02-05 00:00 | ATORVASTATIN CALCIUM | [facility] | + + + + | 2019-11-28 00:00 | ASPIRIN | [facility] | + + + + | 2022-06-06 00:00 | AZITHROMYCIN | [facility] | + + + + | 2022-06-09 00:00 | FERROUS SULFATE | [facility] | + + + + | 2022-09-15 00:00 | FERROUS SULFATE | [facility] | + + + + | 2022-10-22 00:00 | FERROUS SULFATE | [facility] | + + + + | 2022-11-25 00:00 | FERROUS SULFATE | [facility] | + + + + | 2022-06-09 00:00 | FOLIC ACID | [facility] | + + + + | 2022-09-15 00:00 | FOLIC ACID | [facility] | + + + + | 2022-10-22 00:00 | FOLIC ACID | [facility] | + + + + | 2022-11-25 00:00 | FOLIC ACID | [facility] | + + + + | 2023-02-04 00:00 | FOLIC ACID | [facility] | + + + + | 2023-02-05 00:00 | FOLIC ACID | [facility] | + + + + | 2022-11-25 00:00 | GABAPENTIN | [facility] | + + + + | 2023-02-04 00:00 | GABAPENTIN | [facility] | + + + + | 2023-02-05 00:00 | GABAPENTIN | [facility] | + + + + | 2022-06-09 00:00 | GABAPENTIN | [facility] | + + + + | 2022-09-15 00:00 | GABAPENTIN | [facility] | + + + + | 2022-10-22 00:00 | GABAPENTIN | [facility] | + + + + | 2023-02-04 00:00 | PANTOPRAZOLE SODIUM | [facility] | + + + + | 2023-02-04 00:00 | SUCRALFATE | [facility] | + + + + | 2022-09-15 00:00 | Oseltamivir Phosphate | [facility] | + + + + | 2022-06-09 00:00 | CYCLOBENZAPRINE HCL | [facility] | + + + + | 2022-09-15 00:00 | CYCLOBENZAPRINE HCL | [facility] | + + + + | 2022-10-22 00:00 | CYCLOBENZAPRINE HCL | [facility] | + + + + | 2022-11-25 00:00 | CYCLOBENZAPRINE HCL | [facility] | + + + + | 2023-02-04 00:00 | CYCLOBENZAPRINE HCL | [facility] | + + + + | 2023-02-05 00:00 | CYCLOBENZAPRINE HCL | [facility] | + + + + | 2022-06-09 00:00 | HYDROCODONE | [facility] | | | BIT/ACETAMINOPHEN | | + + + + | 2022-09-15 00:00 | HYDROCODONE | [facility] | | | BIT/ACETAMINOPHEN | | + + + + | 2022-10-22 00:00 | HYDROCODONE | [facility] | | | BIT/ACETAMINOPHEN | | + + + + | 2022-11-25 00:00 | HYDROCODONE | [facility] | | | BIT/ACETAMINOPHEN | | + + + + | 2023-02-04 00:00 | HYDROCODONE | [facility] | | | BIT/ACETAMINOPHEN | | + + + + | 2023-02-05 00:00 | HYDROCODONE | [facility] | | | BIT/ACETAMINOPHEN | | + + + + | 2022-10-22 00:00 | HYDROCODONE | [facility] | | | BIT/ACETAMINOPHEN | | + + + + | 2022-06-09 00:00 | PRAMIPEXOLE DI-HCL | [facility] | + + + + | 2022-09-15 00:00 | PRAMIPEXOLE DI-HCL | [facility] | + + + + | 2022-10-22 00:00 | PRAMIPEXOLE DI-HCL | [facility] | + + + + | 2022-11-25 00:00 | PRAMIPEXOLE DI-HCL | [facility] | + + + + | 2023-02-04 00:00 | PRAMIPEXOLE DI-HCL | [facility] | + + + + | 2023-02-05 00:00 | PRAMIPEXOLE DI-HCL | [facility] | + + + + | 2019-11-28 00:00 | METFORMIN HCL | [facility] | + + + + | 2022-11-25 00:00 | METFORMIN HCL | [facility] | + + + + | 2023-02-04 00:00 | METFORMIN HCL | [facility] | + + + + | 2023-02-05 00:00 | METFORMIN HCL | [facility] | + + + + | 2022-06-09 00:00 | METOPROLOL TARTRATE | [facility] | + + + + | 2022-09-15 00:00 | METOPROLOL TARTRATE | [facility] | + + + + | 2022-10-22 00:00 | METOPROLOL TARTRATE | [facility] | + + + + | 2022-11-25 00:00 | METOPROLOL TARTRATE | [facility] | + + + + | 2023-02-04 00:00 | METOPROLOL TARTRATE | [facility] | + + + + | 2023-02-05 00:00 | METOPROLOL TARTRATE | [facility] | + + + + | 2022-06-09 00:00 | VERAPAMIL HCL | [facility] | + + + + | 2022-09-15 00:00 | VERAPAMIL HCL | [facility] | + + + + | 2022-10-22 00:00 | VERAPAMIL HCL | [facility] | + + + + | 2022-11-25 00:00 | VERAPAMIL HCL | [facility] | + + + + | 2023-02-04 00:00 | VERAPAMIL HCL | [facility] | + + + + | 2023-02-05 00:00 | VERAPAMIL HCL | [facility] | + + + + Problems + + + + | date | description | facility | + + + + | 2019-06-13 06:02 | Gastro-esophageal reflux | [facility] - | | | disease with esophagitis | [place] | + + + + | 2019-11-27 00:00 | Transient ischemic attack | [facility] | + + + + | 2020-01-17 00:00 | Melena | [facility] | + + + + | 2021-03-31 09:37:45 | Mixed hyperlipidemia | [facility] | | | | Care | + + + + | 2021-03-31 09:37:45 | Essential (primary) | [facility] | | | hypertension | Care | + + + + | 2022-06-06 00:00 | Diabetes mellitus | [facility] | + + + + | 2022-06-06 00:00 | Hypomagnesemia | [facility] | + + + + | 2022-06-06 00:00 | Pneumonia | [facility] | + + + + | 2022-06-06 00:00 | Acute kidney injury | [facility] | + + + + | 2022-09-12 00:00 | Anemia | [facility] | + + + + | 2022-09-12 00:00 | Gastrointestinal | [facility] | | | hemorrhage | | + + + + | 2022-10-22 00:00 | Acute exacerbation of | [facility] | | | chronic low back pain | | + + + + | 2022-11-24 00:00 | Sepsis | [facility] | + + + + | 2023-02-02 00:00 | Upper gastrointestinal | [facility] | | | hemorrhage | | + + + + | 2023-02-05 00:00 | Empyema | [facility] | + + + + | 2023-02-05 [...] + + + | 2023-02-05 11:59 | CARE HOME (CURRENT) USE OF | [facility] | | | ASPIRIN | | + + + + | 2023-02-05 11:59 | OTHER CARE HOME (CURRENT) | [facility] | | | DRUG [...] 00:00 | EXTRACTION OF ILIAC BONE | [facility] | | | MARROW, PERC APPROACH, | | | | DIAGN | | + + + + | 2022-02-09 00:00 | DX BONE MARROW BIOPSIES | [facility] | + + + + Results/Labs +--------+--------+ [...] (missing) | | (unavailable | :34:08 | [facility] | | | | | ) | [...] | (unavailable | 06:34:08 | [facility] | [phone] | | | | ) | | [facility] | 002 | | | + + + + + + + + + | Result panel 81 | + + + + + + + + + | | 2022-09-12 | [facility] | | (missing) | (missing) | | (unavailable | 06:34:08 | [facility] | [phone] | | | | ) | | [...]
--- OUTSIDE RECORDS SUMMARY | ~2023-05-02 | XMS | Continuity of Care Document ---
Demographics + + + | Address | [address] | | | [place] [address] | + + + | Preferred Language | Unknown | + + + | Marital Status | | + + + | Congregation Affiliation | Unknown | + + + | Race | White | + + + | Ethnic Group | Not or | + + + Author + + + | Author | [facility] | + + + | Organization | [facility] | + + + | Address | [address] | | | [place] [address] | + + + | Phone | | + + + Care Team Providers + + + + | Care Certified Medical Coding Specialist Name | Role | Phone | + [...] (no date) | NO KNOWN DRUG | [facility] | (no reaction) | (no severity) | | | ALLERGIES | [facility] | | | + + + + + + | (no date) | No Known Drug | [facility] | (no reaction) | (no severity) | | | Allergies | | | | + + + + + + Encounters No information. Functional Status No information. Immunizations No information. Medications + + + + | date | description | facility | + + + + | 2022-06-09 00:00 | METHOTREXATE SODIUM | [facility] | + + + + | 2022-09-15 00:00 | METHOTREXATE SODIUM | [facility] | + + + + | 2022-10-22 00:00 | METHOTREXATE SODIUM | [facility] | + + + + | 2022-11-25 00:00 | METHOTREXATE SODIUM | [facility] | + + + + | 2023-02-04 00:00 | METHOTREXATE SODIUM | [facility] | + + + + | 2023-02-05 00:00 | METHOTREXATE SODIUM | [facility] | + + + + | 2022-06-09 00:00 | DIPHENHYDRAMINE HCL | [facility] | + + + + | 2022-09-15 00:00 | DIPHENHYDRAMINE HCL | [facility] | + + + + | 2022-10-22 00:00 | DIPHENHYDRAMINE HCL | [facility] | + + + + | 2022-11-25 00:00 | DIPHENHYDRAMINE HCL | [facility] | + + + + | 2023-02-04 00:00 | DIPHENHYDRAMINE HCL | [facility] | + + + + | 2023-02-05 00:00 | DIPHENHYDRAMINE HCL | [facility] | + + + + | 2022-06-09 00:00 | | [facility] | | | CHLORPHENIR/PHENYLEPH/ASPIR | | | | [place] | | + + + + | 2022-09-15 00:00 | | [facility] | | | CHLORPHENIR/PHENYLEPH/ASPIR | | | | [place] | | + + + + | 2022-10-22 00:00 | | [facility] | | | CHLORPHENIR/PHENYLEPH/ASPIR | | | | [place] | | + + + + | 2022-11-25 00:00 | | [facility] | | | CHLORPHENIR/PHENYLEPH/ASPIR | | | | [place] | | + + + + | 2023-02-04 00:00 | | [facility] | | | CHLORPHENIR/PHENYLEPH/ASPIR | | | | [place] | | + + + + | 2023-02-05 00:00 | | [facility] | | | CHLORPHENIR/PHENYLEPH/ASPIR | | | | [place] | | + + + + | 2022-06-09 00:00 | POTASSIUM CHLORIDE | [facility] | + + + + | 2022-09-15 00:00 | POTASSIUM CHLORIDE | [facility] | + + + + | 2022-10-22 00:00 | POTASSIUM CHLORIDE | [facility] | + + + + | 2022-11-25 00:00 | POTASSIUM CHLORIDE | [facility] | + + + + | 2023-02-04 00:00 | POTASSIUM CHLORIDE | [facility] | + + + + | 2023-02-05 00:00 | POTASSIUM CHLORIDE | [facility] | + + + + | 2022-09-15 00:00 | OMEPRAZOLE | [facility] | + + + + | 2022-06-06 00:00 | CEFDINIR | [facility] | + + + + | 2019-11-28 00:00 | ATORVASTATIN CALCIUM | [facility] | + + + + | 2022-06-09 00:00 | ATORVASTATIN CALCIUM | [facility] | + + + + | 2022-09-15 00:00 | ATORVASTATIN CALCIUM | [facility] | + + + + | 2022-10-22 00:00 | ATORVASTATIN CALCIUM | [facility] | + + + + | 2022-11-25 00:00 | ATORVASTATIN CALCIUM | [facility] | + + + + | 2023-02-04 00:00 | ATORVASTATIN CALCIUM | [facility] | + + + + | 2023-02-05 00:00 | ATORVASTATIN CALCIUM | [facility] | + + + + | 2019-11-28 00:00 | ASPIRIN | [facility] | + + + + | 2022-06-06 00:00 | AZITHROMYCIN | [facility] | + + + + | 2022-06-09 00:00 | FERROUS SULFATE | [facility] | + + + + | 2022-09-15 00:00 | FERROUS SULFATE | [facility] | + + + + | 2022-10-22 00:00 | FERROUS SULFATE | [facility] | + + + + | 2022-11-25 00:00 | FERROUS SULFATE | [facility] | + + + + | 2022-06-09 00:00 | FOLIC ACID | [facility] | + + + + | 2022-09-15 00:00 | FOLIC ACID | [facility] | + + + + | 2022-10-22 00:00 | FOLIC ACID | [facility] | + + + + | 2022-11-25 00:00 | FOLIC ACID | [facility] | + + + + | 2023-02-04 00:00 | FOLIC ACID | [facility] | + + + + | 2023-02-05 00:00 | FOLIC ACID | [facility] | + + + + | 2022-11-25 00:00 | GABAPENTIN | [facility] | + + + + | 2023-02-04 00:00 | GABAPENTIN | [facility] | + + + + | 2023-02-05 00:00 | GABAPENTIN | [facility] | + + + + | 2022-06-09 00:00 | GABAPENTIN | [facility] | + + + + | 2022-09-15 00:00 | GABAPENTIN | [facility] | + + + + | 2022-10-22 00:00 | GABAPENTIN | [facility] | + + + + | 2023-02-04 00:00 | PANTOPRAZOLE SODIUM | [facility] | + + + + | 2023-02-04 00:00 | SUCRALFATE | [facility] | + + + + | 2022-09-15 00:00 | Oseltamivir Phosphate | [facility] | + + + + | 2022-06-09 00:00 | CYCLOBENZAPRINE HCL | [facility] | + + + + | 2022-09-15 00:00 | CYCLOBENZAPRINE HCL | [facility] | + + + + | 2022-10-22 00:00 | CYCLOBENZAPRINE HCL | [facility] | + + + + | 2022-11-25 00:00 | CYCLOBENZAPRINE HCL | [facility] | + + + + | 2023-02-04 00:00 | CYCLOBENZAPRINE HCL | [facility] | + + + + | 2023-02-05 00:00 | CYCLOBENZAPRINE HCL | [facility] | + + + + | 2022-06-09 00:00 | HYDROCODONE | [facility] | | | BIT/ACETAMINOPHEN | | + + + + | 2022-09-15 00:00 | HYDROCODONE | [facility] | | | BIT/ACETAMINOPHEN | | + + + + | 2022-10-22 00:00 | HYDROCODONE | [facility] | | | BIT/ACETAMINOPHEN | | + + + + | 2022-11-25 00:00 | HYDROCODONE | [facility] | | | BIT/ACETAMINOPHEN | | + + + + | 2023-02-04 00:00 | HYDROCODONE | [facility] | | | BIT/ACETAMINOPHEN | | + + + + | 2023-02-05 00:00 | HYDROCODONE | [facility] | | | BIT/ACETAMINOPHEN | | + + + + | 2022-10-22 00:00 | HYDROCODONE | [facility] | | | BIT/ACETAMINOPHEN | | + + + + | 2022-06-09 00:00 | PRAMIPEXOLE DI-HCL | [facility] | + + + + | 2022-09-15 00:00 | PRAMIPEXOLE DI-HCL | [facility] | + + + + | 2022-10-22 00:00 | PRAMIPEXOLE DI-HCL | [facility] | + + + + | 2022-11-25 00:00 | PRAMIPEXOLE DI-HCL | [facility] | + + + + | 2023-02-04 00:00 | PRAMIPEXOLE DI-HCL | [facility] | + + + + | 2023-02-05 00:00 | PRAMIPEXOLE DI-HCL | [facility] | + + + + | 2019-11-28 00:00 | METFORMIN HCL | [facility] | + + + + | 2022-11-25 00:00 | METFORMIN HCL | [facility] | + + + + | 2023-02-04 00:00 | METFORMIN HCL | [facility] | + + + + | 2023-02-05 00:00 | METFORMIN HCL | [facility] | + + + + | 2022-06-09 00:00 | METOPROLOL TARTRATE | [facility] | + + + + | 2022-09-15 00:00 | METOPROLOL TARTRATE | [facility] | + + + + | 2022-10-22 00:00 | METOPROLOL TARTRATE | [facility] | + + + + | 2022-11-25 00:00 | METOPROLOL TARTRATE | [facility] | + + + + | 2023-02-04 00:00 | METOPROLOL TARTRATE | [facility] | + + + + | 2023-02-05 00:00 | METOPROLOL TARTRATE | [facility] | + + + + | 2022-06-09 00:00 | VERAPAMIL HCL | [facility] | + + + + | 2022-09-15 00:00 | VERAPAMIL HCL | [facility] | + + + + | 2022-10-22 00:00 | VERAPAMIL HCL | [facility] | + + + + | 2022-11-25 00:00 | VERAPAMIL HCL | [facility] | + + + + | 2023-02-04 00:00 | VERAPAMIL HCL | [facility] | + + + + | 2023-02-05 00:00 | VERAPAMIL HCL | [facility] | + + + + Problems + + + + | date | description | facility | + + + + | 2019-06-13 06:02 | Gastro-esophageal reflux | [employer] - | | | disease with esophagitis | [place] | + + + + | 2019-11-27 00:00 | Transient ischemic attack | [facility] | + + + + | 2020-01-17 00:00 | Melena | [facility] | + + + + | 2021-03-09 09:00 | OTHER DISEASES OF PHARYNX | [facility] | + + + + | 2021-03-09 09:00 | UNSPECIFIED LESIONS OF | [facility] | | | ORAL MUCOSA | | + + + + | 2021-03-31 09:37:45 | Mixed hyperlipidemia | [facility] | | | | Care | + + + + | 2021-03-31 09:37:45 | Essential (primary) | [facility] | | | hypertension | Care | + + + + | 2022-01-14 12:05 | PERSONAL HISTORY OF | [facility] | | | URINARY CALCULI | | + + + + | 2022-01-14 12:05 | PERSONAL HISTORY OF | [facility] | | | NICOTINE DEPENDENCE | | + + + + | 2022-01-24 12:00 | OCCLUSION AND STENOSIS OF | [facility] | | | BILATERAL [place] | | + + + + | 2022-02-07 13:46 | TYPE 2 DIABETES MELLITUS | [facility] | | | WITHOUT COMPLICATIONS | | + + + + | 2022-02-07 13:46 | ENCOUNTER FOR | [facility] | | | PREPROCEDURAL | | | | CARDIOVASCULAR EXAMINATION | | + + + + | 2022-02-09 10:20 | MYELODYSPLASTIC SYNDROME, | [facility] | | | UNSPECIFIED | | + + + + | 2022-02-09 10:20 | TYPE 2 DIABETES MELLITUS | [facility] | | | WITHOUT COMPLICATIONS | | + + + + | 2022-02-09 10:20 | HYPERLIPIDEMIA, | [facility] | | | UNSPECIFIED | | + + + + | 2022-02-09 10:20 | ARTHROPATHIC PSORIASIS, | [facility] | | | UNSPECIFIED | | + + + + | 2022-03-08 09:43 | AGE-RELATED OSTEOPOROSIS | [facility] | | | W/O CURRENT PATHOLOGICAL | | + + + + | 2022-03-08 09:43 | LOSS OF HEIGHT | [facility] | + + + + | 2022-03-08 09:43 | PERSONAL HISTORY OF | [facility] | | | NICOTINE DEPENDENCE | | + + + + | 2022-03-29 10:47 | OCCLUSION AND STENOSIS OF | [facility] | | | BILATERAL CAROTID ARTERIES | | + + + + | 2022-06-01 15:52 | CALCULUS OF KIDNEY | [facility] | + + + + | 2022-06-01 15:52 | UNSPECIFIED ABDOMINAL PAIN | [facility] | | | | | + + + + | 2022-06-01 15:52 | ENCOUNTER FOR | [facility] | | | PREPROCEDURAL LABORATORY | | | | EXAMINATION | | + + + + | 2022-06-05 09:16 | 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 | | + + + + | 2022-06-05 09:16 | TYPE 2 DIABETES MELLITUS | [facility] | | | WITH HYPERGLYCEMIA | | + + + + | 2022-06-05 09:16 | HYPERLIPIDEMIA, | [facility] | | | UNSPECIFIED | | + + + + | 2022-06-05 09:16 | HYPOMAGNESEMIA | [facility] | + + + + | 2022-06-05 09:16 | DEHYDRATION | [facility] | + + + + | 2022-06-05 09:16 | OTHER CHRONIC PAIN | [facility] | + + + + | 2022-06-05 09:16 | ATRIOVENTRICULAR BLOCK, | [facility]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 | | + + + + | 2022-06-05 09:16 | ORTHOSTATIC HYPOTENSION | [facility] | + + + + | 2022-06-05 09:16 | PNEUMONIA, UNSPECIFIED | [facility] | | | ORGANISM | | + + + + | 2022-06-05 09:16 | DORSALGIA, UNSPECIFIED | [facility] | + + + + | 2022-06-05 09:16 | ACUTE KIDNEY FAILURE, | [facility] | | | UNSPECIFIED | | + + + + | 2022-06-05 09:16 | PERSONAL HISTORY OF | [facility] | | | NICOTINE DEPENDENCE | | + + + + | 2022-06-06 00:00 | Diabetes mellitus | [facility] | + + + + | 2022-06-06 00:00 | Hypomagnesemia | [facility] | + + + + | 2022-06-06 00:00 | Pneumonia | [facility] | + + + + | 2022-06-06 00:00 | Acute kidney injury | [facility] | + + + + | 2022-07-04 07:30 | CALCULUS OF KIDNEY | [facility] | + + + + | 2022-07-04 07:30 | UNSPECIFIED ABDOMINAL PAIN | [facility] | | | | | + + + + | 2022-09-12 00:00 | Anemia | [facility] | + + + + | 2022-09-12 00:00 | Gastrointestinal | [facility] | | | hemorrhage | | + + + + | 2022-09-12 10:25 | ANEMIA, UNSPECIFIED | [facility] | + + + + | 2022-09-12 10:25 | HYPERLIPIDEMIA, | [facility] | | | UNSPECIFIED | | + + + + | 2022-09-12 10:25 | RESTLESS LEGS SYNDROME | [facility] | + + + + | 2022-09-12 10:25 | CHRONIC PAIN SYNDROME | [facility] | + + + + | 2022-09-12 10:25 | Essential (primary) | [facility] | | | hypertension | | + + + + | 2022-09-12 10:25 | FLU DUE TO OTH IDENT | [facility] | | | INFLUENZA VIRUS W OTH RESP | | | | [place] | | + + + + | 2022-09-12 10:25 | ARTHROPATHIC PSORIASIS, | [facility] | | | UNSPECIFIED | | + + + + | 2022-09-12 10:25 | CUSTODIAL (CURRENT) USE OF | [facility] | | | ASPIRIN | | + + + + | 2022-09-12 10:25 | OTHER CUSTODIAL (CURRENT) | [facility] | | | DRUG THERAPY | | + + + + | 2022-09-12 10:25 | PERSONAL HISTORY OF | [facility] | | | NICOTINE DEPENDENCE | | + + + + | 2022-09-12 10:25 | OTHER SPECIFIED | [facility] | | | POSTPROCEDURAL STATES | | + + + + | 2022-10-22 00:00 | Acute exacerbation of | [facility] | | | chronic low back pain | | + + + + | 2022-10-22 20:59 | POLYNEUROPATHY, | [facility] | | | UNSPECIFIED | | + + + + | 2022-10-22 20:59 | OTHER CHRONIC PAIN | [facility] | + + + + | 2022-10-22 20:59 | LOW BACK PAIN, UNSPECIFIED | [facility] | | | | | + + + + | 2022-10-22 20:59 | CUSTODIAL (CURRENT) USE OF | [facility] | | | ASPIRIN | | + + + + | 2022-10-22 20:59 | SILK SCREEN PRINTER HELPER (CURRENT) USE OF | [facility] | | | ORAL HYPOGLYCEMIC DRUGS | | + + + + | 2022-10-22 20:59 | OTHER CUSTODIAL (CURRENT) | [facility] | | | DRUG THERAPY | | + + + + | 2022-10-22 20:59 | PERSONAL HISTORY OF | [facility] | | | NICOTINE DEPENDENCE | | + + + + | 2022-11-10 11:51 | OSTEOPHYTE, VERTEBRAE | [facility] | + + + + | 2022-11-10 11:51 | SPONDYLOLISTHESIS, LUMBAR | [facility] | | | REGION | | + + + + | 2022-11-10 11:51 | 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, LUMBA | | + + + + | 2022-11-10 11:51 | SPONDYLS W/O MYELOPATHY OR | [facility] | | | RADICULOPATHY, LUMBOSAC | | + + + + | 2022-11-10 11:51 | SPINAL STENOSIS, | [facility] | | | LUMBOSACRAL REGION | | + + + + | 2022-11-10 11:51 | OTHER INTERVERTEBRAL DISC | [facility]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, LUMBOSACRA | | + + + + | 2022-11-10 11:51 | RADICULOPATHY, LUMBOSACRAL | [facility] | | | REGION | | + + + + | 2022-11-16 14:39 | MYELODYSPLASTIC SYNDROME, | [facility] | | | UNSPECIFIED | | + + + + | 2022-11-16 14:39 | IRON DEFICIENCY ANEMIA, | [facility] | | | UNSPECIFIED | | + + + + | 2022-11-24 00:00 | Sepsis | [facility] | + + + + | 2022-11-24 14:48 | SEPSIS DUE TO | [facility] | | | STREPTOCOCCUS PNEUMONIAE | | + + + + | 2022-11-24 14:48 | SEPSIS, UNSPECIFIED | [facility] | | | ORGANISM | | + + + + | 2022-11-24 14:48 | IRON DEFICIENCY ANEMIA | [facility] | | | SECONDARY TO BLOOD LOSS (CH | | | | | | + + + + | 2022-11-24 14:48 | TYPE 2 DIABETES MELLITUS | [facility] | | | WITHOUT COMPLICATIONS | | + + + + | 2022-11-24 14:48 | HYPERLIPIDEMIA, | [facility] | | | UNSPECIFIED | | + + + + | 2022-11-24 14:48 | RESTLESS LEGS SYNDROME | [facility] | + + + + | 2022-11-24 14:48 | CHRONIC PAIN SYNDROME | [facility] | + + + + | 2022-11-24 14:48 | Essential (primary) | [facility] | | | hypertension | | + + + + | 2022-11-24 14:48 | Pneumonia due to | [facility] | | | Streptococcus pneumoniae | | + + + + | 2022-11-24 14:48 | Other diseases of the | [facility] | | | pleura (J90-J94) | | + + + + | 2022-11-24 14:48 | ACUTE RESPIRATORY FAILURE | [facility] | | | WITH HYPOXIA | | + + + + | 2022-11-24 14:48 | GASTRO-ESOPHAGEAL REFLUX | [facility] | | | DISEASE WITHOUT ESOPHAGIT | | + + + + | 2022-11-24 14:48 | INFLAMMATORY LIVER | [facility] | | | DISEASE, UNSPECIFIED | | + + + + | 2022-11-24 14:48 | ARTHROPATHIC PSORIASIS, | [facility] | | | UNSPECIFIED | | + + + + | 2022-11-24 14:48 | ACUTE KIDNEY FAILURE, | [facility] | | | UNSPECIFIED | | + + + + | 2022-11-24 14:48 | LOCALIZED ENLARGED LYMPH | [facility] | | | NODES | | + + + + | 2022-11-24 14:48 | SEVERE SEPSIS WITHOUT | [facility] | | | SEPTIC SHOCK | | + + + + | 2022-11-24 14:48 | OTHER NONSPECIFIC ABNORMAL | [facility] | | | FINDING OF LUNG FIELD | | + + + + | 2022-11-24 14:48 | COVID-19 | [facility] | + + + + | 2023-01-18 14:10 | MYELODYSPLASTIC SYNDROME, | [facility] | | | UNSPECIFIED | | + + + + | 2023-01-18 14:10 | IRON DEFICIENCY ANEMIA, | [facility] | | | UNSPECIFIED | | + + + + | 2023-01-18 14:10 | SOLITARY PULMONARY NODULE | [facility] | + + + + | 2023-01-25 10:54 | SOLITARY PULMONARY NODULE | [facility] | + + + + | 2023-02-02 00:00 | Upper gastrointestinal | [facility] | | | hemorrhage | | + + + + | 2023-02-02 17:06 | IRON DEFICIENCY ANEMIA | [facility] | | | SECONDARY TO BLOOD LOSS (CH | | | | | | + + + + | 2023-02-02 17:06 | 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 | | + + + + | 2023-02-02 17:06 | HYPERLIPIDEMIA, | [facility] | | | UNSPECIFIED | | + + + + | 2023-02-02 17:06 | RESTLESS LEGS SYNDROME | [facility] | + + + + | 2023-02-02 17:06 | Essential (primary) | [facility] | | | hypertension | | + + + + | 2023-02-02 17:06 | ACUTE GASTRIC ULCER WITH | [facility] | | | HEMORRHAGE | | + + + + | 2023-02-02 17:06 | HEMATEMESIS | [facility] | + + + + | 2023-02-02 17:06 | ABNORMAL WEIGHT LOSS | [facility] | + + + + | 2023-02-02 17:06 | Do not resuscitate status | [facility] | | | (Z66) | | + + + + | 2023-02-02 17:06 | SILK SCREEN PRINTER HELPER (CURRENT) USE OF | [facility] | | | ORAL HYPOGLYCEMIC DRUGS | | + + + + | 2023-02-02 17:06 | OTHER SILK SCREEN PRINTER HELPER (CURRENT) | [facility] | | | DRUG THERAPY | | + + + + | 2023-02-02 17:06 | PERSONAL HISTORY OF | [facility] | | | NICOTINE DEPENDENCE | | + + + + | 2023-02-02 17:06 | OTHER SPECIFIED | [facility] | | | POSTPROCEDURAL STATES | | + + + + | 2023-02-05 00:00 | Empyema | [facility] | + + + + | [...] + + + | 2023-02-05 11:59 | SILK SCREEN PRINTER HELPER (CURRENT) USE OF | [facility] | | | ASPIRIN | | + + + + | 2023-02-05 11:59 | OTHER SILK SCREEN PRINTER HELPER (CURRENT) | [facility] | | | DRUG THERAPY | | + + + + | 2023-02-07 14:00 | OTH BACTERIAL AGENTS | [facility] | | | THE CAUSE OF DIS | | + + + + | [...] 00:00 | EXTRACTION OF ILIAC BONE | [facility] | | | MARROW, PERC APPROACH, | | | | DIAGN | | + + + + | 2022-02-09 00:00 | DX BONE MARROW BIOPSIES | [facility] | + + + + Results/Labs [...] (missing) | | (unavailable | 09:48 | [facility] | | | | | ) | [...] (missing) | | (unavailable | 05:35 | [facility] | | | | | ) | [...] | (unavailable | 06:34:08 | [facility] | [phone] | | | | ) | | [facility] | 002 | | | + + + + + + + + + | Result panel 81 | + + + + + + + + + | | 2022-09-12 | [facility] | | (missing) | (missing) | | (unavailable | 06:34:08 | [facility] | [phone] | | | | ) | | [...] (missing) | (missing) | | (unavailable | 07::08 | [facility] | | | | | ) | | [facility] | | | | + + + +-----+ + + + + | Result panel 84 | + + + + + + + + + | | 2022-09-12 | [facility] | POSITIVE | (missing) | (missing) | | (unavailable | 07::08 | [facility] | | | | | [...] mg/dL | (missing) | | (unavailable | ::07 [...] (missing) | (missing) | | (unavailable | 06::07 | [facility] | | | | | ) | | [facility] | | | | + + + +-------+ + + + + | Result panel 216 | + + + + + +-------+ + + | | 2023-02-03 | [facility] | 4.2 | (missing) | (missing) | | (unavailable | :04:07 [...] (missing) | (missing) | | (unavailable | :: | [facility] | | | | ) | | [facility] | | | | + + + +-------+ + + + + | Result panel 299 | + + + + + + + + + | | 2023-02-05 | [facility] | NEGATIVE | (missing) | (missing) | | (unavailable | : | [facility] | [facility] ) | | [facility] | | | | + + + + + + + + + | Result panel 300 | + + + + + + + + + | | 2023-02-05 | [facility] | NORMAL | (missing) | (missing) | | (unavailable | :24:07 | [facility] | | | | | [...]
--- OUTSIDE RECORDS SUMMARY | 2023-05-02 18:28 | XMS ---
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 E.D. VISIT COUNT (12 MO.) [address] [facility] TOTAL 7 NOTE: Visits indicate total known visits. ED/UCC VISIT TRACKING (12 MO.) 05/02/2023 18:28 [facility] TYPE: Emergency COMPLAINT: - WEAKNESS 02/05/2023 11:59 [facility] TYPE: Emergency COMPLAINT: - SHORTNESS OF BREATH DIAGNOSES: - Contact with and (suspected) exposure to COVID-19 - Essential (primary) hypertension - Hyperlipidemia, unspecified - penitentiary (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 - Other terminal makeup operator (current) drug therapy - Pyothorax without fistula - Shortness of breath 02/02/2023 17:05 [facility] TYPE: Emergency COMPLAINT: - VOMITING 11/24/2022 12:42 [facility] [place] TYPE: Emergency COMPLAINT: - WEAKNESS 10/22/2022 20:59 [facility] [place] TYPE: Emergency COMPLAINT: - BACK AND LEG PAIN DIAGNOSES: - penitentiary (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 - 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 [place] TYPE: Emergency COMPLAINT: - SHOB INPATIENT VISIT TRACKING (12 MO.) 02/06/2023 01:43 [facility] [place] TYPE: General Medicine DIAGNOSES: - Pyothorax without fistula - Weakness - Empyema 02/02/2023 17:06 [facility] [place] TYPE: Observation COMPLAINT: - UPPER GI BLEED DIAGNOSES: - Abnormal weight loss - Acute gastric ulcer with hemorrhage - Contact with and (suspected) exposure to COVID-19 - Do not resuscitate - Essential (primary) hypertension - Hematemesis - Hyperlipidemia, 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) - penitentiary (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 of oral hypoglycemic drugs - Other terminal makeup operator (current) drug therapy - Other specified postprocedural states - Personal history of nicotine dependence - Restless legs syndrome - Type 2 diabetes mellitus with diabetic polyneuropathy 11/25/2022 19:48 [facility] [place] TYPE: Medical Surgical DIAGNOSES: - Acute respiratory failure with hypoxia - Loculated PE, PNA, COVID + 11/24/2022 14:48 [facility] TYPE: Critical Care COMPLAINT: - PNA DIAGNOSES: - Acute kidney failure, unspecified - Acute kidney failure, unspecified - Acute respiratory failure with hypoxia - Acute respiratory failure with hypoxia - Arthropathic psoriasis, unspecified - Arthropathic psoriasis, unspecified - Chronic pain syndrome - Chronic pain syndrome - COVID-19 - COVID-19 - Essential (primary) hypertension - Essential (primary) hypertension - Gastro-esophageal reflux disease without esophagitis - Gastro-esophageal reflux disease without esophagitis - Hyperlipidemia, unspecified - Hyperlipidemia, unspecified - Inflammatory liver disease, unspecified - Inflammatory liver disease, 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) - Iron deficiency anemia secondary to blood loss (chronic) - Localized enlarged lymph nodes - Localized enlarged lymph nodes - Other nonspecific abnormal finding of lung field - Other nonspecific abnormal finding of lung field - Pleural effusion, not elsewhere classified - Pleural effusion, not elsewhere classified - Pneumonia due to Streptococcus pneumoniae - Pneumonia due to Streptococcus pneumoniae - Restless legs syndrome - Restless legs syndrome - Sepsis due to Streptococcus pneumoniae - Sepsis due to Streptococcus pneumoniae - Sepsis, unspecified organism - Severe sepsis without septic shock - Severe sepsis without septic shock - Type 2 diabetes mellitus without complications - Type 2 diabetes mellitus without complications 09/12/2022 10:25 [facility] TYPE: Medical Surgical COMPLAINT: - ACUTE GI BLEED/BLOOD LOSS ANEMIA, ACUTE INFLU A DIAGNOSES: - Anemia, unspecified - Arthropathic psoriasis, unspecified - Arthropathic psoriasis, unspecified - Chronic pain syndrome - Chronic pain syndrome - Contact with and (suspected) exposure to COVID-19 - Contact with and (suspected) exposure to COVID-19 - Essential (primary) hypertension - Essential (primary) hypertension - Hyperlipidemia, unspecified - Hyperlipidemia, unspecified - Influenza due to other identified influenza virus with other respiratory manifestations - Influenza due to other identified influenza virus with other respiratory manifestations - penitentiary (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 - 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 - Other [facility] (current[facility] drug therapy - Other terminal makeup operator (current) drug therapy - Other specified postprocedural states - Other specified postprocedural states - Personal history of nicotine dependence - Personal history of nicotine dependence - Restless legs syndrome - Restless legs syndrome 06/05/2022 09:16 [facility] TYPE: Observation COMPLAINT: - PNEUMONIA DIAGNOSES: - Acute kidney failure, unspecified - Atrioventricular block, first degree - Contact with and (suspected) exposure to COVID-19 - Dehydration - Dorsalgia, unspecified - Hyperlipidemia, unspecified - Hypomagnesemia - Orthostatic hypotension - Other chronic pain - Personal history of nicotine dependence - Pneumonia, unspecified organism - Type 2 diabetes mellitus with diabetic polyneuropathy - Type 2 diabetes mellitus with hyperglycemia [email or web address]
[2023-05-02 19:00] LABS: MCV 83.1 fl (81-99)
[2023-05-02 19:02] LABS: BASOPHILS 0.6 % (0-2); EOSINOPHILS 0.4 % (0-6); HEMATOCRIT 25.4 % (35.0-50.0); LYMPHOCYTES 20.2 % (24-44); MCH 25.6 (27-36); MCHC 30.8 g/dl (30-36); MONOCYTES 5.9 % (0-12); NEUTROPHILS 72.9 % (39-80); PLATELET COUNT 362 K/uL (140-440); RBC 3.05 M/ul (4.3-5.7); RDW 19.1 (10.5-15.0)
[2023-05-02 19:18] LABS: ALBUMIN 3.6 g/dL (3.4-5.0); ALBUMIN/GLOBULIN RATIO 0.92 (1.1-2.4); ANION GAP 14.1 (7-21); BILIRUBIN, TOTAL 0.1 ng/dL (0.2-1.0); BUN/CREATININE RATIO 47.32 (6.0-28.6); CALCIUM 9.4 mg/dL (8.5-10.1); CREATININE, SERUM 1.12 mg/dL (0.70-1.30); POTASSIUM 5.1 mmol/L (3.5-5.1); PROTEIN, TOTAL 7.5 g/dL (6.4-8.2)
[2023-05-02 19:26] LABS: INR 1.05 (0.80-1.30); PROTIME 13.3 Sec (11.2-14.2)
[2023-05-02 19:28] LABS: PARTIAL THROMBOPLASTIN TIME 27.3 Sec (22.9-41.3)
[2023-05-02 19:38] LABS: ABO O
[2023-05-02 19:39] LABS: ANTIBODY SCREEN NEGATIVE; RH POSITIVE
[2023-05-02 21:08] LABS: BILIRUBIN, URINE NEGATIVE (negative); BLOOD/HGB, URINE NEGATIVE (Negative); KETONE, URINE NEGATIVE (Negative); LEUK ESTERASE, URINE NEGATIVE (negative); NITRITE, URINE NEGATIVE (negative); PH, URINE 5.5 (5-7)
[2023-05-02 21:17] VITALS: BP 151/69
--- NOTE | 2023-05-02 21:41 | NUR ---
PATIENT ARRIVED TO THE FLOOR VIA STRETCHER. PATIENT ABLE TO AMBULATE A SBA FROM STRETCHER TO BED. PATIENTS ADMISSION COMPLETED. VITALS TAKEN AND RECORDED. PATIENT REPORTS PAIN. PLACED CALL TO MD ABOUT PATIENTS CHRONIC MEDICATIONS. MD TO PLACE ORDER. PATIENT IS NPO AT MIDNIGHT. THIS RN INQUIRED ABOUT PATIENT BEING SL TO MD. NO NEW ORDERS FOR IV FLUIDS AT THIS TIME. PATIENT PROVIDED JELLO, BROTH AND ICE WATER. DISCUSSED PLAN OF CARE WITH PATIENT AND ALL QUESTIONS ANSWERED. PATIENT DENIES ANY FURTHER NEEDS. CALL LIGHT IN REACH.
--- NOTE | 2023-05-02 21:54 | EKG ---
[facility] [address] [place] [address] Signed Sinus rhythm with 1st degree AV block Otherwise normal ECG When compared with ECG of 05-FEB-2023 14:11, No significant change was found Confirmed by Jen Anderson MD () on 05/02/2023 9:53:51 PM Electronically Signed By: JEN ANDERSON MD 05/02/232153 PATIENT NAME: ABDOULAYE CASTANO Electrocardiogram DATE OF : 47 PHYSICIAN: JEN ANDERSON MD REPORT #: [id number] REPORT IS CONFIDENTIAL AND NOT TO BE RELEASED WITHOUT AUTHORIZATION
--- NOTE | 2023-05-02 23:12 | NUR ---
PATIENT IS RESTING IN BED WATCHING TV. PATIENT REPORTS 8/10 PAIN IN HIS BACK THAT IS CHRONIC, SCHEDULED MEDS PER ORDER. PATIENT PROVIDE WITH JUICE. PATIENT UP TO BR A SBA TO BR. PATIENT ABLE TO VOID. PATIENT IS BACK IN BED RESTING. PATIENT DENIES ANY FURTHER NEEDS. CLAL LIGHT IN REACH.
--- NOTE | 2023-05-02 23:58 | NUR ---
LABS DRAWN FROM PIV WNL AND SENT TO LAB. LAB PHONED TO NOTIFY. pt RESTING IN BED WATCHING TV. DENIES ANY NEEDS. CALL LIGHT IN REACH.
[2023-05-03] VITALS (9 sets, daily range): BP systolic 115–1155; BP diastolic 40–81
[2023-05-03 00:05] LABS: HEMOGLOBIN 7.1 g/dL (12.0-18.0); MCV 83.2 fl (81-99); NEUTROPHILS 67.6 % (39-80)
--- NOTE | 2023-05-03 00:07 | NUR ---
PATIENT IS RESTING IN BED WATCHING TV. PATIENT DENIES ANY NEEDS. CALL LIGHT IN REACH.
[2023-05-03 00:09] LABS: BASOPHILS 1.1 % (0-2); EOSINOPHILS 1.1 % (0-6); HEMATOCRIT 22.5 % (35.0-50.0); LYMPHOCYTES 24.6 % (24-44); MCH 26.2 (27-36); MCHC 31.5 g/dl (30-36); MONOCYTES 5.6 % (0-12); PLATELET COUNT 298 K/uL (140-440); RDW 19.7 (10.5-15.0)
--- NOTE | 2023-05-03 00:31 | NUR ---
PLACED CALL TO MD WITH LAB RESULTS. RECEIVED VERBAL ORDER TO TRANSFUSE X1 UNIT OF PRBC. VERIFIED ORDER USING THE READBACK METHOD.
--- NOTE | 2023-05-03 01:13 | NUR ---
PATIENTS TRANSFUSION OF PRBCS WAS STARTED AT APPROX [id number]. PRE VITALS TAKEN AND ARE WNL. THIS RN REMAINS IN ROOM FOR 15MIN. 15MIN VITALS TAKEN AND RECORDED. PATIENT DENIES ANY SHOWS NO S/SX OF TRANSFUSION REACTION. PATIENT DENIES ANY FURTHER NEEDS. CALL LIGHT IN REACH. BLOOD TRANSFUSING PER ORDER.
--- NOTE | 2023-05-03 02:05 | NUR ---
PATIENT IS RESTING IN BED ON RIGHT SIDE. BS TAKEN AND RECORDED. BS WNL NO SS GIVEN PER ORDER.PRBC INFUSING PER ORDER. PATIENT DENIES ANY NEEDS. CALL LIGHT IN REACH.
--- NOTE | 2023-05-03 03:11 | NUR ---
PATIENT ASSISTED TO THE BR A SBA. PATIENT ABLE TO VOID. PATIENT IS BACK IN BED RESTING. PATIENT DENIES ANY FURTHER NEEDS. BLOOD TRANSFUSING PER ORDER. CALL LIGHT IN REACH.
--- NOTE | 2023-05-03 03:40 | NUR ---
PATIENT BLOOD TRANSFUSION COMPLETED. VITALS TAKEN AND RECORDED. PATIENT HAS NOS S/SX OF A REACTION. PATIENT DENIES ANY NEEDS. CALL LIGHT IN REACH. PATIENT IS NOW SL.
--- NOTE | 2023-05-03 04:19 | NUR ---
PATIENT IS RESTING IN BED WITH EYE SCLSOED, RR 15. CALL LIGHT IN REACH.
[2023-05-03 05:53] LABS: BASOPHILS 0.3 % (0-2); HEMATOCRIT 25.6 % (35.0-50.0); HEMOGLOBIN 8.2 g/dL (12.0-18.0)
--- NOTE | 2023-05-03 05:55 | NUR ---
PATIENTS BLOOD DRAWN AND SENT TO LAB. PATIENT UP TO BR A SBA. PATIENT ABLE TO VOID. PATIENT IS BACK IN BED RESTING. PATIENTS VITALS TAKEN AND RECORDED. INTKAE AND OUTPUT RECORDED. PATIENT DENIES ANY FURTHER NEEDS. CALL LIGHT IN REACH.
[2023-05-03 05:58] LABS: EOSINOPHILS 2.7 % (0-6); LYMPHOCYTES 29.6 % (24-44); MCHC 31.9 g/dl (30-36); MCV 84.6 fl (81-99); MONOCYTES 6.8 % (0-12); NEUTROPHILS 60.6 % (39-80); PLATELET COUNT 296 K/uL (140-440); RBC 3.02 M/ul (4.3-5.7); RDW 19.2 (10.5-15.0)
[2023-05-03 05:59] LABS: ALBUMIN 3.1 g/dL (3.4-5.0); ALBUMIN/GLOBULIN RATIO 0.97 (1.1-2.4); ANION GAP 11.6 (7-21); BILIRUBIN, TOTAL 0.3 ng/dL (0.2-1.0); BUN/CREATININE RATIO 40.42 (6.0-28.6); CALCIUM 8.6 mg/dL (8.5-10.1); CREATININE, SERUM 0.94 mg/dL (0.70-1.30); MAGNESIUM 1.8 mg/dL (1.8-2.4); PHOSPHORUS, INORGANIC 3.8 mg/dL (2.5-4.9); POTASSIUM 4.6 mmol/L (3.5-5.1); PROTEIN, TOTAL 6.3 g/dL (6.4-8.2)
--- NOTE | 2023-05-03 07:00 | NUR ---
recievedshift report from nightshift nurse. pateience was up watching tv but complained of pain in lowerback and legs and needing pain meds. call light within reach.
--- NOTE | 2023-05-03 07:41 | NUR ---
patient used restroom, pt asked about pain meds this olap developer reported to nurse mathews. pt back to bed, blood sugar taken, nothing else to report. call light in reach
--- NOTE | 2023-05-03 07:42 | NUR ---
CONSENT FOR UPPER ENDOSCOPY SIGNED AND WITNESSED, PLACED ON CHART.
--- NOTE | 2023-05-03 07:59 | CONS ---
[facility] [address], [place] [address] Signed DATE OF CONSULTATION: 05/03/2023 CHIEF COMPLAINT: Melena. HISTORY OF PRESENT ILLNESS: Abdoulaye is a 77-year-old gentleman, who we took care of in January of this year. In 2019, he had a laparoscopic Alyse fundoplication for a very large paraesophageal hiatal hernia while in [place], [place]. This was complicated by an esophageal leak. He was transferred over to [facility]. He had a gastrostomy tube and spent quite some time on the ventilator and so forth. After that experience, he has made himself a DNR and DNI. He has maintained that desire today. He really never quite fully recovered from that. He is having recurring anemia and melena. He has been through multiple upper endoscopies revealing gastric ulcers and irritation in the stomach. He has been using ibuprofen for his chronic back pain. He has been through three previous back surgeries and apparently some of the hardware is loose. He then ended up with pneumonia and a recurrent GI bleed earlier in 2022 and was at [facility] in [place], [place]. Again, he had an upper endoscopy at that time, which showed a gastric ulcer. Unfortunately, his memory is not the best. He does not seem to accept that fact. He is living with his daughter, Ruby and his son-in-law Kareem Meyer here in [place], [place]. Apparently, they eat dinner together, but he handles his own medications. There have been concerns about his compliance with his medications. He does not specifically remember the Protonix or the sucralfate, which we send him home with. He cannot remember being advised not to take his ibuprofen. However, he has been back to my office and he has been to his primary care provider's office as well. He originally weighed about 220 pounds. He is down close to 140 pounds. He did spend some time at an [facility] in [place], [place]. He seemed to do well in that environment. Once again, he noticed black tarry stool for a couple of days and then he was developing dyspnea on exertion. He recognized that as a recurrent GI bleed. He came to the emergency room for evaluation. Naturally, he has black tarry stool which is guaiac positive. Hemoglobin was low at 7.8, it dropped to 7.1 overnight, so he received 2 units of packed red blood cells. Hemoglobin is now up to 8.2. BUN was 53 when he got here, it is now down to 38. Albumin is a little low at 3.1. He has been hemodynamically stable. He has been on our medical service. I have been asked to see him once again to consider repeat upper endoscopy. PAST MEDICAL HISTORY: Restless legs syndrome, peripheral neuropathy, chronic back pain and leg pain, prostate cancer, hypertension, hyperlipidemia, kidney stones, noncancerous lung nodules, chronic cough. PAST SURGICAL HISTORY: Electronically Signed By: KISHA COOPER MD 05/03/23 0759 PATIENT NAME: ABDOULAYE CASTANO CONSULTATION DATE OF : 47 REPORT #: [id number] PHYSICIAN: KISHA COOPER MD PCP: ARIEL RODRIGUES PAC REPORT IS CONFIDENTIAL AND NOT TO BE RELEASED WITHOUT AUTHORIZATION [facility] [address] [place] [id number] Signed Back surgery x3, bilateral shoulder surgery, left total hip replacement, repair of large paraesophageal hernia in [place], [place], complicated by an esophageal leak, being transferred to [facility] with a gastrostomy tube and a prolonged hospital course back in 2020. He thinks he had a colonoscopy while in [place], [place]. He has had multiple upper endoscopies. SOCIAL HISTORY: He quit smoking in 1989. He has quit drinking. He lives with his daughter, Ruby and his son-in-law Kareem Meyer. His son happens to live in [place]. He said he prefers the [facility]. Kareem Vipul is his floor representative. Ariel Rodrigues is primary care provider. He is quite emphatic that he will remain a DNR/DNI after his long protracted hospital course at [facility] back in 2020. He said he still drives. Apparently, he handles his own medications, but he does eat dinner with his family. There is some concern about his medical compliance obviously. FAMILY HISTORY: Dad had coronary artery disease. Brother had prostate cancer. REVIEW OF SYSTEMS: He had 10 systems reviewed and really nothing new to add other than his ongoing ibuprofen use. ALLERGIES: None. MEDICATIONS: 1. Atorvastatin. 2. Omeprazole. 3. Flexeril. 4. Mirapex. 5. Multivitamin. 6. Metoprolol. 7. Hersey. 8. Folate. 9. Iron tablets. 10. Potassium chloride. 11. Metformin. 12. Gabapentin. 13. Possibly aspirin. PHYSICAL EXAMINATION: VITAL SIGNS: His blood pressure is 154/81, heart rate 93, respiratory rate is 19, temperature is 97.8, he is 99% on room air. He is 5 feet 9 inches at 63 kg with a body mass index of 20. Electronically Signed By: KISHA COOPER MD 05/03/23 0759 PATIENT NAME: ABDOULAYE CASTANO CONSULTATION DATE OF : 47 REPORT #: [id number] PHYSICIAN: KISHA COOPER MD PCP: ARIEL RODRIGUES PAC REPORT IS CONFIDENTIAL AND NOT TO BE RELEASED WITHOUT AUTHORIZATION [facility] [address], [place] [address] Signed GENERAL: Abdoulaye is a 77-year-old gentleman who is lying supine in his hospital bed, watching TV. He is hard of hearing and has volume up fairly loud. He is thin, but he is alert, awake, and interactive. Once again, I can tell that his memory is not the best. He is always a little defensive in that regard. LUNGS: Generally clear to auscultation bilaterally. HEART: Regular rate and rhythm without murmurs. ABDOMEN: Soft, flat, nontender. I can see the gastrostomy site in his left upper quadrant now well scarred. RECTAL: Exam is not repeated. LABORATORY DATA: His white blood count is 8.5, hemoglobin was 7.8, it went down to 7.1, it is now up to 8.2 after 2 units of packed red blood cells. Platelets were 362, they dropped down to 296. His BUN is 53, it is now 38, glucose is 87. Liver function tests are negative. Albumin is slightly low at 3.1. Urinalysis is negative. INR is 1. RADIOGRAPHIC STUDIES: None. ASSESSMENT AND PLAN: Abdoulaye is a 77-year-old gentleman, who is returning with his yet another episode of upper GI bleed with melena, dyspnea on exertion and anemia, most likely related to his ibuprofen use for his back pain. He does have hydrocodone listed, but he cannot recall that medication. The one thing he did ask me for this morning was some medication for his back since he is now n.p.o. I had reviewed all these issues with Abdoulaye in detail including the ibuprofen causing the ulcers. He recognizes this as a recurrent GI bleed. We are going to add him on our schedule for repeat upper endoscopy later today. I had a very full schedule today. I am not sure the exact time we will be able to bring him down to the OR. He understands upper endoscopy quite well. There is risk including, but not limited to gas bloating, crampy abdominal pain, bleeding, perforation requiring surgery and missed diagnosis. He also understands the need for monitored anesthesia care given his very frail nature, advanced age and his acute GI bleed. He has expressed understanding and would like to proceed. In the meantime, we will track down his last office note from Ariel Rodrigues. Kisha Cooper MD [facility]/MODL /[id number] Electronically Signed By: KISHA COOPER MD 05/03/23 0759 PATIENT NAME: ABDOULAYE CASTANO CONSULTATION DATE OF : 47 REPORT #: [id number] PHYSICIAN: KISHA COOPER MD PCP: ARIEL RODRIGUES PAC REPORT IS CONFIDENTIAL AND NOT TO BE RELEASED WITHOUT AUTHORIZATION [address] [address] Signed cc: MD Ariel Agarwal, HUBER Cooper MD Copies: KAREEM PAULA MD, ANDREW L MD ~ Electronically Signed By: KISHA COOPER MD 05/03/23 0759 PATIENT NAME: ABDOULAYE CASTANO CONSULTATION DATE OF : 47 REPORT #: [id number] PHYSICIAN: KISHA COOPER MD PCP: ARIEL RODRIGUES PAC REPORT IS CONFIDENTIAL AND NOT TO BE RELEASED WITHOUT AUTHORIZATION
--- NOTE | 2023-05-03 08:10 | NUR ---
Spoke with Rajiv. He denies needs. Was here in January for gastric bleeding ulcers. "Thought they were fixed." He lives with his daughter and son in law in [place]. States he has been trying to sell his home in [email or web address] and buy a home here. Pt states he drives, shops, does his own self care. He denies any needs. Has a walker and cane at home. Plans to dc to home when cleared medically.
[2023-05-03] MEDS ORDERED: FEROSUL325 MG PO (08:25)
--- NOTE | 2023-05-03 11:43 | NUR ---
PT IN BED, HE USED THE RESTROOM, HE WANTED NO OTHER CARES, CALL LIGHT IN REACH, NOTHING ELSE TO REPORT AT THIS TIME
--- NOTE | 2023-05-03 11:53 | NUR ---
PT ASKED FOR PAIN MEDICATION
--- NOTE | 2023-05-03 12:13 | NUR ---
DPT COMPLAINT OF BACK AND LEG PAIN, REQUESTING MEDICATION, GIVEN 1MG IV DILAUDID. PT ASSISTED TO BATHROOM TO VOID, SBA.
[2023-05-03 13:07] LABS: HEMOGLOBIN 8.5 g/dL (12.0-18.0)
[2023-05-03 13:09] LABS: BASOPHILS 1.3 % (0-2); EOSINOPHILS 2.8 % (0-6); HEMATOCRIT 26.2 % (35.0-50.0); LYMPHOCYTES 28.1 % (24-44); MCH 27.3 (27-36); MCHC 32.4 g/dl (30-36); MCV 84.1 fl (81-99); NEUTROPHILS 61.8 % (39-80); PLATELET COUNT 306 K/uL (140-440); RBC 3.12 M/ul (4.3-5.7); RDW 19.5 (10.5-15.0)
[2023-05-03 13:23] LABS: SMEAR REVIEW BLOOD SEE COMMENTS
--- NOTE | 2023-05-03 13:38 | NUR ---
PT IN BED. DENIED ANY NEEDS. CONSENTED TO PRAYER. PRAYED.
--- NOTE | 2023-05-03 15:31 | NUR ---
PT COMPLAINT OF PAIN 7/10 TO BACK AND LEGS, REQUESTING PAIN MEDICATION, 1MG IV DILAUDID GIVEN. PT DENIES OTHER NEEDS AT THIS TIME.
--- NOTE | 2023-05-03 17:39 | NUR ---
PT RECIEVED FROM PACU.PT STABLE ON ROOM AIR CURRENTLY ALERT AND ORIENTED. DR CHANGED NPO STATUS TO CLEAR LIQUID DIET. PT IS TOLERATING IT WELL. ORDERS CLARIFIED WITH DR CHAUHAN ON ORAL PAIN MEDS AND RATE CHANGE OF LR FROM A RATE OF 100 TO 75. CALL LIGHT WITHIN REACH.
--- NOTE | 2023-05-03 18:01 | NUR ---
05/03/23 1801 Inga Callahan 1719 PT ARRIVED IN PACU NON RESPONSIVE TO NOXIOUS STIMULI WITH OPA IN PLACE AND CHIN LIFT BY RN. 1723 PT REACTIVE. OPA REMOVED. 1730 OXYGEN REMOVED AND GLASSES RETURNED TO PT. 1739 TO ROOM 112. REPORT GIVEN TO MARLENE PATTON AND MARLENE OCHOA.
--- NOTE | 2023-05-03 18:30 | NUR ---
PT ASSISTED TO BATHROOM AND THEN BACK TO BED, VOIDED WITHOUT DIFFICULTY. PT TOLERATED CLEAR LIQUID TRAY, DENIES NAUSEA. VSS.
--- NOTE | 2023-05-03 18:40 | NUR ---
SPOKE TO DR MCKEON AND REQUESTED MIRAPEX TO BE ADDED TO MEDICATION LIST AND WAS APPROVED.
--- NOTE | 2023-05-03 19:34 | NUR ---
REPORT RECEIVED FROM MARLENE PATTON AND MARLENE OCHOA. pt RESTING IN BED WATCHING TV. IVF INFUSING WNL. pt DENIES NEEDS AT THIS TIME, STATES "MY PAIN IS STARTING TO INCREASE A LITTLE". DISCUSSED PLAN FOR MEDS WITH pt. CALL LIGHT IN REACH.
--- NOTE | 2023-05-03 19:40 | NUR ---
PT CALL LIGHT ON. ASSISTED PT, SBA, TO BATHROOM. PT VOIDED WITHOUT DIFFICULTY. PT RETURNED TO BED. VITALS & I&Os DOCUMENTED. NO FURTHER NEEDS. CALL LIGHT IN REACH.
--- NOTE | 2023-05-03 20:17 | NUR ---
pt RESTING IN BED AWAKE. RATES PAIN 6/10 IN BACK, LOWER LEGS. ASSESSMENT COMPLETE. SCHEDULED PAIN MEDICATIONS ADMINISTERED. IV SITES FLUSHED WNL, IVF INFUSING ORDERED. CBG 145, 1 UNIT SS INSULIN ADMINISTERED. EDUCATION PROVIDED. PO SNACK PROVIDED. VERBAL ORDER FROM MD TO CHANGE BS CHECKS [facility], REPEATED BACK. pt RESTING IN BED WITH CALL LIGHT IN REACH.
--- NOTE | 2023-05-03 23:00 | NUR ---
CHECKED ON pt. RESTING IN BED WITH EYES CLOSED, RR 16. NO DISTRESS NOTED. CALL LIGHT ACROSS CHEST.
[2023-05-04 00:30] VITALS: BP 161/80
--- NOTE | 2023-05-04 00:41 | NUR ---
CALL LIGHT ANSWERED. SBA TO RESTROOM FOR VOID AND BACK TO BED. pt RATES PAIN 7/10 IN LEGS. PRN PAIN MEDICATION ADMINISTERED PER REQUEST. ICE WATER REFILLED. CALL LIGHT IN REACH.
--- NOTE | 2023-05-04 01:47 | NUR ---
pt RESTING IN BED ON LEFT SIDE, BREATHING UNLABORED, RR 14. LIGHTS OFF IN ROOM.
--- NOTE | 2023-05-04 04:00 | NUR ---
CALL LIGHT ANSWERED. pt UP TO RESTROOM, SBA WITH ASSISTANT MANAGER/EMBALMER.
[2023-05-04 06:15] VITALS: BP 142/76
--- NOTE | 2023-05-04 06:21 | NUR ---
CALL LIGHT ANSWERED. PRN PAIN MEDICATION ADMINISTERED FOR 04/24 REPORTED PAIN. IVF INFUSING WNL. ASSESSMENT COMPLETE. VSS. COFFEE AND ICE WATER PROVIDED. pt REQUESTING MORNING GABAPENTIN WITH PRN MEDICATION. ADMINISTERED AT THIS TIME. CALL LIGHT IN REACH.
--- NOTE | 2023-05-04 07:24 | NUR ---
Report received from night RN - pt awake in bed watching TV. Denies needs at this time. Call light in hand.
--- NOTE | 2023-05-04 07:30 | OR ---
[facility] [address], [place] [address] Signed DATE OF OPERATION: 05/03/2023 SURGEON: Kisha Cooper MD PREOPERATIVE DIAGNOSES: 1. Melena. 2. Anemia. 3. History of peptic ulcer disease (gastric ulcers related to NSAIDs). 4. History of NSAID use. POSTOPERATIVE DIAGNOSES: 1. Gastric antral ulcers x2. 2. Intact Alyse fundoplication. 3. GE junction at 33 cm. PROCEDURE: EGD with CLOtest and biopsies of the antrum. ESTIMATED BLOOD LOSS: None. INDICATIONS: Abdoulaye is a 77-year-old gentleman, who in 2019 underwent repair of a large paraesophageal hiatal hernia in [place], [place]. He had esophageal perforation. He was transferred to [facility]. He had a gastrostomy tube placed in quite some time in the hospital. He said he is now a DNR DNI and he never wants to have breathing tube or breathing machine never again. He has been using ibuprofen for his back pain. He has had three back surgeries. He thinks some of the metal is now loose. He lives with his daughter and his son-in-law, Mk. Apparently they together, but he is more or less in charge of his medications. Unfortunately, it is clear he has some level of dementia and/or noncompliance. For whatever reasons he is not using the proton pump inhibitor, no obvious sucralfate. He has had several episodes now of bleeding antral ulcers associated with the NSAIDs. However he told our Hospital Service no one has ever gone over that with him. I know I have gone over with him in January myself. We get over it again on this hospital admission. He came into our hospital, he had another episode of melena for a couple of days and feeling shortness of breath. He recognized it as a recurrent GI bleed. He was admitted to the Internal Medicine Service. I have been asked to see him as a local general surgeon for upper endoscopy. He has been given a couple of units of blood and has been hemodynamically stable. He is now on Protonix b.i.d. I have reviewed those previous records. I went over that with him in the Electronically Signed By: KISHA COOPER MD 05/04/23 0730 PATIENT NAME: ABDOULAYE CASTANO OPERATIVE REPORT DATE OF : 47 REPORT #: [id number] PHYSICIAN: KISHA COOPER MD PCP: ARIEL RODRIGUES PAC REPORT IS CONFIDENTIAL AND NOT TO BE RELEASED WITHOUT AUTHORIZATION [facility] [address] [place] [id number] Signed hospital room. I went over upper endoscopy with him. He understands the risks including, but not limited to gas, bloating, crampy abdominal pain, bleeding, perforation requiring surgery, and missed diagnosis. He always needs monitored anesthesia care given his advanced age and his frail nature. He had expressed understanding and wished to proceed. PROCEDURE NOTE: Abdoulaye was taken into our endoscopy suite and placed in a supine semi-recumbent position. The posterior oropharynx was anesthetized with lidocaine spray. A bite block was utilized for the case. The adult gastroscope was introduced and advanced under direct visualization of camera without difficulty. Once again, we could easily see two ulcers in his antrum. One slightly larger than the other. The larger one I am sure was the source of his bleeding. There is no bleeding at this time. There is no blood in his stomach. The duodenum and pyloric channel were unremarkable. We took a biopsy of the antrum for CLOtest as well as pathologic review. We took multiple pictures for photodocumentation. Again, we will give another copy to Abdoulaye. Upon retroflexion of the scope, we can see he has intact Alyse fundoplication. The GE junction measured out to about 33 cm. Very minimal disruption to the Z-line. No Marte's mucosa, no distal esophagitis. The middle and upper esophagus were unremarkable. After this, the gas was suctioned out, the gastroscope removed. Abdoulaye tolerated the procedure quite well. RECOMMENDATIONS: Abdoulaye is going to be returning to his room and started on clear liquid diet. He will stay on Protonix b.i.d. Sucralfate can always be considered as well. The issue was noncompliance, hopefully can be addressed. Kisha Cooper MD [facility]/MODL /[id number] cc: Ariel Rodrigues PA-C Kisha Cooper MD Electronically Signed By: KISHA COOPER MD 05/04/23 0730 PATIENT NAME: ABDOULAYE CASTANO OPERATIVE REPORT DATE OF : 47 REPORT #: [id number] PHYSICIAN: KISHA COOPER MD PCP: ARIEL RODRIGUES PAC REPORT IS CONFIDENTIAL AND NOT TO BE RELEASED WITHOUT AUTHORIZATION [facility] [address] [place], [place] [address] Signed Copies: KISHA COOPER MD ~ Electronically Signed By: KISHA COOPER MD 05/04/23 0730 PATIENT NAME: ABDOULAYE CASTANO URIEL OPERATIVE REPORT DATE OF : 47 REPORT #: [id number] PHYSICIAN: KISHA COOPER MD PCP: ARIEL RODRIGUES [facility] REPORT IS CONFIDENTIAL AND NOT TO BE RELEASED WITHOUT AUTHORIZATION
[2023-05-04 08:15] LABS: HEMOGLOBIN 7.8 g/dL (12.0-18.0)
[2023-05-04 08:30] LABS: HEMOGLOBIN 8.5 g/dL (12.0-18.0); MCH 27.3 (27-36); MONOCYTES 6.9 % (0-12)
[2023-05-04 08:31] LABS: BASOPHILS 0.3 % (0-2); EOSINOPHILS 4.2 % (0-6); LYMPHOCYTES 28.1 % (24-44); MCHC 32.6 g/dl (30-36); MCV 83.8 fl (81-99); NEUTROPHILS 60.5 % (39-80); PLATELET COUNT 326 K/uL (140-440); RBC 3.11 M/ul (4.3-5.7); RDW 19.1 (10.5-15.0)
[2023-05-04 08:33] LABS: BUN/CREATININE RATIO 18.51 (6.0-28.6); CALCIUM 8.8 mg/dL (8.5-10.1); CREATININE, SERUM 1.08 mg/dL (0.70-1.30)
--- NOTE | 2023-05-04 09:05 | NUR ---
ASSESSMENT COMPLETE - PT AWAKE IN BED WATCHING TV, 100% BREAKFAST EATEN WITHOUT PAIN OR DIFFICULTY. PT ONLY REPORTS CHRONIC BACK PAIN COMPLAINT AT THIS TIME. DNEIES ANY STOOL THIS AM. VOIDING URINE WNL. IV SITE PATENT X2. CALL LIGHT IN REACH. ROOM TIDIED.
[2023-05-04 09:19] VITALS: BP 151/70
--- NOTE | 2023-05-04 09:20 | NUR ---
Spoke with Rajiv. He denies needs and wants to go home. We discussed how he takes his meds and he takes them from the bottle. We discussed using a mediset. This helps if meds are forgotten, as you check at the end of the day. If there are pills left, he would know he had not taken all his meds. Pt is not really interested in this and feels he is taking his medication correctly. I updated Dr. Cannon and he plans on calling daughter to be present for dc instructions.
[2023-05-04 10:33] LABS: IS CROSSMATCH COMPATIBLE
--- NOTE | 2023-05-04 11:36 | NUR ---
rn rounding on pt - resting in bed with eyes closed, rr even and unlabored. call light in hand.
[2023-05-04] MEDS ORDERED: PROTONIX40 MG PO (11:40)
[2023-05-04] MEDS ORDERED: CARAFATE1 GM PO (11:42)
--- NOTE | 2023-05-04 11:45 | NUR ---
IN TO CHECK BLOOD SUGAR. PT REQUESTING PRN PAIN MEDICATION. PT DENIES ANY OTHER NEEDS. CALL LIGHT IN REACH.
--- NOTE | 2023-05-04 12:02 | NUR ---
IN TO ADMINISTER PRN PAIN MEDICATION. PT REPORTING PAIN IN LOWER BACK AND IN LEGS. PT REPORTS PAIN IS 7/10. PRN PAIN MEDICATION ADMINISTERED, SEE MAR. PT TAKES PO MEDICATION WITH NO ISSUES. PT DENIES ANY OTHER NEEDS AT THIS TIME. CALL LIGHT IN REACH.
--- NOTE | 2023-05-04 12:48 | NUR ---
RN IN ROOM TO PROVIDE DC INSTRUCTIONS. PT STATES UNDERSTANDING TO ALL TEACHINGS. STATES HE HAS A RIDE HOME AT 1500.
--- NOTE | 2023-05-04 13:11 | NUR ---
PT IN BED WITH EYES CLOSED. APPEARED TO BE SLEEPING AND DID NOT ROUSE TO MY KNOCK. DID NOT DISTURB. PRAYED FOR HEALING.
[2023-05-04 13:24] VITALS: BP 155/83
[2023-05-04 15:39] VITALS: BP 140/77
--- NOTE | 2023-05-05 15:23 | PATH ---
[facility] [address] [place], [place] [address] Signed SPECIMEN(S): A ANTRUM/ANTRAL BIOPSY SPECIMEN SOURCE: A. ANTRUM/ANTRAL BIOPSY CLINICAL HISTORY: Hx melena, GI bleed, ulcers. Post: Gastric ulcers x 2, intact rishi fundoplication. FINAL PATHOLOGIC DIAGNOSIS: Antrum / antral biopsy: - Diffuse superficial chronic gastritis with focal proximal duodenal mucosa. - Negative for ulceration on these sections. - Helicobacter pylori immunostain is negative for organisms. [facility]:C2NR MICROSCOPIC EXAMINATION: Histologic sections of all submitted blocks are examined by light microscopy. These findings, together with the gross examination, support the pathologic diagnosis. A Helicobacter pylori immunostain is performed with appropriate positive and negative controls on block (A1) and is negative for organisms. [facility] GROSS DESCRIPTION: The specimen, labeled and designated "Jose Maria Batista, " and designated on the requisition "stomach antrum/pylorus biopsy," is received in formalin and consists of one calero soft tissue fragment measuring 0.5 cm submitted entirely in (A1). MMA (under the direct supervision of a pathologist) The Gross Description was prepared using a voice recognition system. The report was reviewed for accuracy; however, sound-alike word errors, addition and/or deletions may occur. If there is any question about this report, please contact Client Services. ADDITIONAL NOTES: Immunohistochemical and/or in situ hybridization studies were performed on this case with the appropriate positive controls that react as expected. This test was developed and its performance characteristics determined by [facility]. It has not been cleared or approved by the U.S. Food and Drug Administration. The FDA has determined that PATIENT NAME: ABDOULAYE BATISTA PATHOLOGY DATE OF : 47 REPORT #: [id number] PHYSICIAN: RAMESH HENDERSON PCP: ARIEL RODRIGUES PAC REPORT IS CONFIDENTIAL AND NOT TO BE RELEASED WITHOUT AUTHORIZATION [facility] [address] [place], [place] [address] Signed such clearance or approval is not necessary. This test is used for clinical purposes. It should not be regarded as investigational or for research. [facility] is certified under the Clinical Laboratory Improvement Amendments of 1988 (CLIA) as qualified to perform high complexity clinical laboratory testing. This assay has not been validated for specimens that have been decalcified. PERFORMING LABORATORY: Technical component was performed by [facility], [address] [place] [id number] (CLIA# [id number]). Professional interpretation was performed by [facility] - [address] [address] (CLIA#: [id number]). Diagnostician: Raphael Dove MD Pathologist Electronically Signed 05/05/2023 Copies: ~ PATIENT NAME: ABDOULAYE BATISTA PATHOLOGY DATE OF : 47 REPORT #: [id number] PHYSICIAN: RAMESH HENDERSON PCP: ARIEL RODRIGUES PAC REPORT IS CONFIDENTIAL AND NOT TO BE RELEASED WITHOUT AUTHORIZATION
== END 2023-05-04 15:45 | disposition home or self-care (01) ==
LOC: ED 18:27 → MS 18:29
PROVIDERS: Colon & Rectal Surgery; Family Medicine; ADMIT Family Medicine; ATTEND Family Medicine
PROC: 0DB48ZX Excision of Esophagogastric Junction, Via Natural or Artificial Opening Endoscopic, Diagnostic (ICD-10-PCS; principal; 2023-05-03 15:30)
DX: K29.31 Chronic superficial gastritis with bleeding (principal); D62 Acute posthemorrhagic anemia; E87.5 Hyperkalemia; Z98.890 Other specified postprocedural states; E11.9 Type 2 diabetes mellitus without complications; G89.29 Other chronic pain; M54.9 Dorsalgia, unspecified; I10 Essential (primary) hypertension; E78.5 Hyperlipidemia, unspecified; Z66 Do not resuscitate; Z87.891 Personal history of nicotine dependence; Z79.84 Long term (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 of oral hypoglycemic drugs; Z79.899 Other long term (current) drug therapy
CPT/HCPCS: 00731; 36415; 80048; 80053; 81003; 83735; 84100; 85025; 85060; 85610; 85730; 86850; 86900; 86901; 86922; 87077; 88305; 88342; 96374; 96375; 96376; 99285-25; A9270; C9113; G0378; J0690; J1170; J1815; J2704; J7121; P9016